=== PATIENT | male | born 1950 | race African-American/Black ===

== ENCOUNTER 2017-06-24 14:03 | Inpatient (IN) | payer MEDICARE, BC ==
[2017-06-24 16:22] LABS: ABS Basophils 0.1 10^3/ul (0-0.2); ABS Eosinophils 0.2 10^3/ul (0-0.6); ABS Lymphocytes 2.9 10^3/ul (1.0-4.8); ABS Monocytes 0.7 10^3/ul (0-0.8); ABS Neutrophils 3.4 10^3/ul (1.5-7.7); ABS Nucleated RBC 0 10^3/ul; Eosinophil % 2.2 % (0-6); Hematocrit 40 % (42-52); Hemoglobin 13.4 g/dl (14.0-18.0); Lymphocyte % 39.9 % (25-47); Mean Corpuscular HGB Conc 34 g/dl (31-36); Mean Corpuscular Hemoglobin 29 pg (27-31); Mean Corpuscular Volume 88 fL (80-94); Mean Platelet Volume 8 um3 (7.4-10.4); Nucleated Red Blood Cells % 0.1; Platelet Count 237 10^3/ul (150-450); Red Blood Count 4.55 10^6/ul (4.0-5.4); Red Cell Distribution Width 15 % (10.5-15); White Blood Count 7.2 10^3/ul (3.5-10.8)
--- NOTE | 2017-06-24 16:34 | RAD ---
INDICATION: Numbness of the left upper gravity. COMPARISON: There are no prior studies available for comparison. TECHNIQUE: Contiguous axial sections of the brain were obtained from the skull base to the vertex without contrast. FINDINGS: The ventricles, cisterns and sulci are within normal limits. There is a cavum vergae present consistent with normal variation. No significant focal abnormality or mass effect is seen. There is no evidence for hemorrhage. No significant focal osseous abnormality is seen. The visualized portion of the paranasal sinuses and mastoid air cells appear clear. IMPRESSION: NO EVIDENCE FOR GROSS ACUTE INFARCT, MASS EFFECT OR HEMORRHAGE.
[2017-06-24 16:49] LABS: INR 1.02 (0.77-1.02)
[2017-06-24 16:53] LABS: EGFR Non-African American 88.1 (>60)
[2017-06-24] MEDS: Aspirin Low Dose CHEW TAB* 81 MG PO ONE (17:52)
[2017-06-24 17:58] LABS: Urine Appearance Turbid; Urine Blood Negative (Negative); Urine Color Yellow; Urine Ketones Negative (Negative); Urine Protein Negative (Negative); Urine Specific Gravity 1.016 (1.010-1.030); Urine Urobilinogen Negative (Negative)
[2017-06-24] MEDS ORDERED: Iohexol 350* (CONTRAST) 500 ML MDV IV ONE (18:10)
--- NOTE | 2017-06-24 18:59 | RAD ---
INDICATION: Left upper extremity numbness. COMPARISON: Appear seated is made with a prior CT of the brain from every 2017 and a prior thyroid ultrasound from August 14, 2015. TECHNIQUE: A CT angiogram of the head and neck was performed following intravenous injection of 80 ml of Omnipaque 350 nonionic contrast. Contiguous axial sections were obtained from the thoracic inlet through the skull vertex. Images were reconstructed in the coronal and sagittal planes and in a 3-D volume rendered format. The distal cervical internal carotid artery diameter is used as the denominator for stenosis measurement. FINDINGS: RIGHT CAROTID: The common and internal carotid arteries appear patent without evidence for stenosis. LEFT CAROTID: The common and internal carotid arteries appear patent without evidence for stenosis. VERTEBRALS: The left vertebral artery is dominant. There is a very small caliber right vertebral artery throughout. CTA BRAIN: The internal carotid, anterior and middle cerebral arteries appear patent without evidence for high-grade stenosis or occlusion. The vertebral, basilar and posterior cerebral arteries appear patent without evidence for high-grade stenosis or occlusion. The right posterior cerebral artery arises from the posterior communicating artery consistent with normal variation. No gross focal perfusion abnormalities are seen. No aneurysm or vascular malformation is seen. NECK: The thyroid gland is enlarged with numerous nodules. Some of the nodules appear larger than on the most recent prior thyroid ultrasound study therefore recommend a follow-up thyroid ultrasound exam for further evaluation. The parotid and submandibular glands appear normal. No enlarged lymph nodes are noted. There is a cyst in the subcutaneous tissues in the posterior aspect of the upper neck on the right side measuring 2.0 x 1.4 cm in size. There is mild to moderate centrilobular emphysematous change seen in the lung apices. There are also dependent infiltrates suggestive of atelectasis. The paranasal sinuses and mastoid air cells appear clear IMPRESSION: 1. NO EVIDENCE FOR HEMODYNAMICALLY SIGNIFICANT CAROTID STENOSIS. 2. NO EVIDENCE FOR LARGE VESSEL INTRACRANIAL THROMBUS. 3. MULTINODULAR GOITER. SOME OF THE NODULES APPEAR LARGER THAN ON THE PRIOR THYROID ULTRASOUND. RECOMMEND A FOLLOW-UP OUTPATIENT ULTRASOUND FOR FURTHER EVALUATION. CPT II Codes: 3100F
[2017-06-24] MEDS ORDERED: Acetaminophen TAB* 325 MG PO PRN (21:22)
[2017-06-24] MEDS ORDERED: CMCS: Melatonin (NF) 3 MG TAB PO PRN (21:22)
[2017-06-24] MEDS ORDERED: traMADol TAB* 50 MG PO PRN (21:22)
[2017-06-24] MEDS ORDERED: Albuterol 2.5 MG/3 ML NEB.SOL* (0.083%) INH PRN (21:22)
[2017-06-24] MEDS ORDERED: Ondansetron INJ* 2 MG/ML VIAL IV PRN (21:22)
[2017-06-24] MEDS ORDERED: NS 0.9% 1000 ML* 1,000 ML IV SCH (21:30)
[2017-06-24 21:45] LABS: ABS Basophils 0.1 10^3/ul (0-0.2); ABS Eosinophils 0.2 10^3/ul (0-0.6); ABS Lymphocytes 2.6 10^3/ul (1.0-4.8); ABS Monocytes 0.7 10^3/ul (0-0.8); ABS Neutrophils 2.8 10^3/ul (1.5-7.7); ABS Nucleated RBC 0 10^3/ul; Eosinophil % 3.3 % (0-6); Hematocrit 43 % (42-52); Hemoglobin 14.3 g/dl (14.0-18.0); Lymphocyte % 40.7 % (25-47); Mean Corpuscular HGB Conc 34 g/dl (31-36); Mean Corpuscular Hemoglobin 30 pg (27-31); Mean Corpuscular Volume 88 fL (80-94); Mean Platelet Volume 7 um3 (7.4-10.4); Nucleated Red Blood Cells % 0.1; Platelet Count 230 10^3/ul (150-450); Red Blood Count 4.84 10^6/ul (4.0-5.4); Red Cell Distribution Width 15 % (10.5-15); White Blood Count 6.4 10^3/ul (3.5-10.8)
[2017-06-24 21:57] LABS: EGFR Non-African American 83.6 (>60)
[2017-06-24 22:03] LABS: INR 1.02 (0.77-1.02)
--- NOTE | 2017-06-24 23:39 | HP ---
H&P (Free Text) History and Physical: PCP: Nathan Hudson MD Date/Time: 06/24/2017 2110 CC: L arm weakness HPI: Mr Barnett is a 67YO male HX HIV+ & urolithiasis who noticed his L arm feeling heavy prior to going to bed last night (06/23). He awoke this AM with the same feeling, some mild nausea, and a brief mild headache. He states he "just didn't feel right", but cannot further characterized this and decided to be evaluated. He denies HX of similar, numbness/tingling, L face or LLE weakness , change in speech/swallow/vision, chest pain, or palpitations. PMedHx HIV+ urolithiasis monitored for elevated glucose & cholesterol Ambulatory Orders [place]-3 Fatty Acids [Fish Oil] 300 mg PO DAILY 11/26/14 Vilazodone (NF) [Viibryd (NF)] 20 mg PO QAM 11/21/15 Ascorbic Acid TAB* [Vitamin C TAB*] 500 mg PO DAILY 06/24/17 Aspirin EC Low Dose* [Ecotrin EC Low Dose 81 MG*] 81 mg PO DAILY 06/24/17 Betamethasone Dip 0.05% ON(NF) [Betamethasone Dipr 0.05% OINT(NF)] 1 applic TOPICAL DAILY PRN 06/24/17 Cholecalciferol TAB* [Vitamin D TAB*] 1,000 unit PO DAILY 06/24/17 Efavirenz (NF) [Sustiva (NF)] 200 mg PO BEDTIME 06/24/17 Emtricitabine/Tenofov Alafenam [Descovy 200-25 mg] 1 tab PO DAILY 06/24/17 Multivitamins/Minerals TAB* [Theragran/minerals TAB*] 1 tab PO DAILY 06/24/17 Allergies No Known Allergies Allergy (Verified 06/24/17 21:27) PSurgHx lithotripsy SocHx: quit smoking ~6 months ago, rare alcohol, denies recreational drugs; lives with a male domestic partner; works at [employer]; DNR/trial of intubation FamHx: Mother: CVA in her 30s, passed of complications of diabetes in her 70s; Father: passed at 86 of prostate CA; Sister: DM ROS: as above, otherwise reviewed and all were negative vitals: Vital Signs Temp 36.6 C 06/24/17 22:56 Pulse 74 06/24/17 22:56 Resp 16 06/24/17 22:56 BP 146/86 06/24/17 22:56 Pulse Ox 100 06/24/17 22:56 Intake & Output 06/24/17 06/24/17 06/25/17 11:59 23:59 11:59 Weight 70.67 kg Constitutional: NAD, normally developed, well-nourished black male HEENM: atraumatic; sclera/conjunctiva: anicteric/clear; hearing: clinically intact; oropharynx: clear, mucosa moist Neck: soft tissue: non-tender; thyroid: normal Pulmonary: clear to auscultation bilaterally, good aeration, no accessory muscle use CV: RR/RR, normal S1S2, no carotid bruit, no jugular venous distention, 2+ B DP/ PT, no edema Abdominal: soft, non-distended, non-tender, no rebound/guarding/rigidity, normoactive bowel sounds, no hepatosplenomegaly or masses, no costovertebral angle tenderness Musculoskeletal: general: grossly intact, no tenderness w/ palpation Integumental: normal appearance and texture of exposed skin Neurological cranial nerves III/IV/: symmetric light reflex, EOMI/PERRLA V: intact facial sensation VII: intact facial symmetry VIII: hearing clinically intact IX/X: symmetric palatal motion, no dysarthria XII: midline tongue protrusion, normal voice articulation motor: R handed LUE: 4+/5 proximally, distally, & social media developer strength RUE: 4+/5 proximally, distally, & social media developer strength LLE: 4+/5 proximally & distally RLE: 4+/5 proximally & distally coordination finger/nose: intact, symmetric heal/morton: intact, symmetric dysdiadochokinesia: none sensory crude touch: intact globally pinprick: intact globally Psychiatric orientation: AA&O to PPS affect: calm mood: cooperative eye contact: good content: reliable responses: timely insight: fair to good Testing: Lab Results 06/24/17 06/24/17 06/24/17 Range/Units 16:11 16:11 16:11 WBC 7.2 (3.5-10.8) 10^3/ul RBC 4.55 (4.0-5.4) 10^6/ul Hgb 13.4 L (14.0-18.0) g/dl Hct 40 L (42-52) % MCV 88 (80-94) fL MCH 29 (27-31) pg MCHC 34 (31-36) g/dl RDW 15 (10.5-15) % Plt Count 237 (150-450) 10^3/ul MPV 8 (7.4-10.4) um3 Neut % (Auto) 46.7 (38-83) % Lymph % (Auto) 39.9 (25-47) % Haines % (Auto) 10.0 H (1-9) % Eos % (Auto) 2.2 (0-6) % Baso % (Auto) 1.2 (0-2) % Absolute Neuts (auto) 3.4 (1.5-7.7) 10^3/ul Absolute Lymphs (auto) 2.9 (1.0-4.8) 10^3/ul Absolute Monos (auto) 0.7 (0-0.8) 10^3/ul Absolute Eos (auto) 0.2 (0-0.6) 10^3/ul Absolute Basos (auto) 0.1 (0-0.2) 10^3/ul Absolute Nucleated RBC 0 10^3/ul Nucleated RBC % 0.1 INR (Anticoag Therapy) 1.02 (0.77-1.02) APTT (26.0-36.3) seconds Sodium 141 (133-145) mmol/L Potassium 4.1 (3.5-5.0) mmol/L Chloride 110 (101-111) mmol/L Carbon Dioxide 25 (22-32) mmol/L Anion Gap 6 (2-11) mmol/L BUN 15 (6-24) mg/dL Creatinine 0.87 (0.67-1.17) mg/dL Est GFR ( Amer) 113.3 (>60) Est GFR (Non-Af Amer) 88.1 (>60) BUN/Creatinine Ratio 17.2 (8-20) Glucose 109 H (70-100) mg/dL Calcium 9.7 (8.6-10.3) mg/dL Total Bilirubin 0.30 (0.2-1.0) mg/dL AST 20 (13-39) U/L ALT 21 (7-52) U/L Alkaline Phosphatase 72 (34-104) U/L Troponin I 0.00 (<0.04) ng/mL Total Protein 7.2 (6.4-8.9) g/dL Albumin 4.1 (3.2-5.2) g/dL Globulin 3.1 (2-4) g/dL Albumin/Globulin Ratio 1.3 (1-3) Urine Color Urine Appearance Urine pH (5-9) Ur Specific [place] (1.010-1.030) Urine Protein (Negative) Urine Ketones (Negative) Urine Blood (Negative) Urine Nitrate (Negative) Urine Bilirubin (Negative) Urine Urobilinogen (Negative) Ur Leukocyte Esterase (Negative) Urine WBC (Auto) (Absent) Urine RBC (Auto) (Absent) Ur Squamous Epith Cells (Absent) Urine Bacteria (Absent) Urine Glucose (Negative) Urine Ascorbic Acid (Negative) 06/24/17 06/24/17 06/24/17 Range/Units 17:45 21:35 21:35 WBC (3.5-10.8) 10^3/ul RBC (4.0-5.4) 10^6/ul Hgb (14.0-18.0) g/dl Hct (42-52) % MCV (80-94) fL MCH (27-31) pg MCHC (31-36) g/dl RDW (10.5-15) % Plt Count (150-450) 10^3/ul MPV (7.4-10.4) um3 Neut % (Auto) (38-83) % Lymph % (Auto) (25-47) % Haines % (Auto) (1-9) % Eos % (Auto) (0-6) % Baso % (Auto) (0-2) % Absolute Neuts (auto) (1.5-7.7) 10^3/ul Absolute Lymphs (auto) (1.0-4.8) 10^3/ul Absolute Monos (auto) (0-0.8) 10^3/ul Absolute Eos (auto) (0-0.6) 10^3/ul Absolute Basos (auto) (0-0.2) 10^3/ul Absolute Nucleated RBC 10^3/ul Nucleated RBC % INR (Anticoag Therapy) 1.02 (0.77-1.02) APTT 30.0 (26.0-36.3) seconds Sodium (133-145) mmol/L Potassium (3.5-5.0) mmol/L Chloride (101-111) mmol/L Carbon Dioxide (22-32) mmol/L Anion Gap (2-11) mmol/L BUN 14 (6-24) mg/dL Creatinine 0.91 (0.67-1.17) mg/dL Est GFR ( Amer) 107.5 (>60) Est GFR (Non-Af Amer) 83.6 (>60) BUN/Creatinine Ratio (8-20) Glucose (70-100) mg/dL Calcium (8.6-10.3) mg/dL Total Bilirubin (0.2-1.0) mg/dL AST (13-39) U/L ALT (7-52) U/L Alkaline Phosphatase (34-104) U/L Troponin I (<0.04) ng/mL Total Protein (6.4-8.9) g/dL Albumin (3.2-5.2) g/dL Globulin (2-4) g/dL Albumin/Globulin Ratio (1-3) Urine Color Yellow Urine Appearance Turbid Urine pH 7.0 (5-9) Ur Specific [place] 1.016 (1.010-1.030) Urine Protein Negative (Negative) Urine Ketones Negative (Negative) Urine Blood Negative (Negative) Urine Nitrate Negative (Negative) Urine Bilirubin Negative (Negative) Urine Urobilinogen Negative (Negative) Ur Leukocyte Esterase Trace H (Negative) Urine WBC (Auto) 2+(11-20/hpf) H (Absent) Urine RBC (Auto) 3+(>10/hpf) H (Absent) Ur Squamous Epith Cells Present H (Absent) Urine Bacteria Absent (Absent) Urine Glucose Negative (Negative) Urine Ascorbic Acid * H (Negative) 06/24/17 Range/Units 21:35 WBC 6.4 (3.5-10.8) 10^3/ul RBC 4.84 (4.0-5.4) 10^6/ul Hgb 14.3 (14.0-18.0) g/dl Hct 43 (42-52) % MCV 88 (80-94) fL MCH 30 (27-31) pg MCHC 34 (31-36) g/dl RDW 15 (10.5-15) % Plt Count 230 (150-450) 10^3/ul MPV 7 L (7.4-10.4) um3 Neut % (Auto) 44.5 (38-83) % Lymph % (Auto) 40.7 (25-47) % Haines % (Auto) 10.4 H (1-9) % Eos % (Auto) 3.3 (0-6) % Baso % (Auto) 1.1 (0-2) % Absolute Neuts (auto) 2.8 (1.5-7.7) 10^3/ul Absolute Lymphs (auto) 2.6 (1.0-4.8) 10^3/ul Absolute Monos (auto) 0.7 (0-0.8) 10^3/ul Absolute Eos (auto) 0.2 (0-0.6) 10^3/ul Absolute Basos (auto) 0.1 (0-0.2) 10^3/ul Absolute Nucleated RBC 0 10^3/ul Nucleated RBC % 0.1 INR (Anticoag Therapy) (0.77-1.02) APTT (26.0-36.3) seconds Sodium (133-145) mmol/L Potassium (3.5-5.0) mmol/L Chloride (101-111) mmol/L Carbon Dioxide (22-32) mmol/L Anion Gap (2-11) mmol/L BUN (6-24) mg/dL Creatinine (0.67-1.17) mg/dL Est GFR ( Amer) (>60) Est GFR (Non-Af Amer) (>60) BUN/Creatinine Ratio (8-20) Glucose (70-100) mg/dL Calcium (8.6-10.3) mg/dL Total Bilirubin (0.2-1.0) mg/dL AST (13-39) U/L ALT (7-52) U/L Alkaline Phosphatase (34-104) U/L Troponin I (<0.04) ng/mL Total Protein (6.4-8.9) g/dL Albumin (3.2-5.2) g/dL Globulin (2-4) g/dL Albumin/Globulin Ratio (1-3) Urine Color Urine Appearance Urine pH (5-9) Ur Specific [place] (1.010-1.030) Urine Protein (Negative) Urine Ketones (Negative) Urine Blood (Negative) Urine Nitrate (Negative) Urine Bilirubin (Negative) Urine Urobilinogen (Negative) Ur Leukocyte Esterase (Negative) Urine WBC (Auto) (Absent) Urine RBC (Auto) (Absent) Ur Squamous Epith Cells (Absent) Urine Bacteria (Absent) Urine Glucose (Negative) Urine Ascorbic Acid (Negative) ECG, personally reviewed: NSR rate 70, no ischemia CT brain WO, personally reviewed: IMPRESSION: NO EVIDENCE FOR GROSS ACUTE INFARCT, MASS EFFECT OR HEMORRHAGE. CTA brain WO, personally reviewed: IMPRESSION: 1. NO EVIDENCE FOR HEMODYNAMICALLY SIGNIFICANT CAROTID STENOSIS. 2. NO EVIDENCE FOR LARGE VESSEL INTRACRANIAL THROMBUS. 3. MULTINODULAR GOITER. SOME OF THE NODULES APPEAR LARGER THAN ON THE PRIOR THYROID ULTRASOUND. RECOMMEND A FOLLOW-UP OUT- PATIENT ULTRASOUND FOR FURTHER EVALUATION. Impression: 67M presenting with symptoms of TIA/CVA DIAGNOSIS & PLAN Primary TIA/CVA : telemetry : aspirin : ECHO ordered : MRI brain WO ordered : Baljinder Reynolds MD neurology consulted by ED, will evaluate in AM : supplemental oxygen : supportive care Secondary HIV+ : continue outpatient regimen urolithiasis : no acute issues elevated glucose & cholesterol : continue outpatient monitoring via PCP Admission Rational: observation for TIA/CVA work up DVTp: heparin SQ Code Status: DNR/trial of intubation HCP: male domestic partnerSly
[2017-06-25] MEDS: Heparin VIAL(*) 5000 UNITS/ML VIAL (FIVE THOUSAND) SUBCUT SCH ×3 (05:09→20:46)
[2017-06-25] MEDS ORDERED: Omeprazole CAP* 20 MG PO SCH (06:00)
[2017-06-25] MEDS: Docusate CAP* 100 MG PO SCH ×2 (07:12→20:46)
[2017-06-25] MEDS ORDERED: EMTRICITABINE TENOFOVIR ALAFEN PO SCH (09:00)
[2017-06-25] MEDS ORDERED: Aspirin EC Low Dose* 81 MG TAB.EC PO SCH ×2 (09:00)
[2017-06-25] MEDS: VILAZODONE 20 MG PO SCH (10:40)
[2017-06-25] MEDS: EMTRICITABINE TENOFOVIR ALAFEN PO SCH (10:41)
[2017-06-25] MEDS: Clopidogrel TAB* 75 MG PO SCH (12:32)
--- NOTE | 2017-06-25 12:41 | ED ---
Diego Negrete Nilda, scribed for Landry Jama MD on 06/24/17 at 1858 . Neurological HPI - HPI Summary HPI Summary: This patient is a 67 year old M presenting to [facility] accompanied by friend with a chief complaint of constant left arm numbness that radiates to neck since this morning at 0100. Pain rated 1/10 in severity. Symptoms aggravated and alleviated by nothing. Patient reports nausea. Patient denies CAUSEY, blurred vision , double vision, vomiting, CP, SOB, palpitations, diarrhea, and constipation. PMHx HIV +. - History of Current Complaint Chief Complaint: EDWeakness Stated Complaint: NUMBNESS ON LT SIDE Time Seen by Provider: 06/24/17 15:53 Hx Obtained From: Patient Onset/Duration: Sudden Onset, Started hours ago, Still Present Timing: Constant Pain Intensity: 1 Pain Scale Used: 0-10 Numeric Character: Numbness/Tingling - left arm radiating to neck, Other: Aggravating: Nothing Alleviating: Nothing Associated Signs and Symptoms: Positive: Nausea/Vomiting - positive nausea, negative vomiting. Negative: Visual Changes, Headache, Chest Pain, Palpitations - Allergy/Home Medications Allergies/Adverse Reactions: Allergies Allergy/AdvReac Type Severity Reaction Status Date / Time No Known Allergies Allergy Verified 06/24/17 21:27 Home Medications: Home Medications Ascorbic Acid TAB* [Vitamin C TAB*] 500 mg PO DAILY 06/24/17 [History Confirmed 06/24/17] Aspirin EC Low Dose* [Ecotrin EC Low Dose 81 MG*] 81 mg PO DAILY 06/24/17 [ History Confirmed 06/24/17] Betamethasone Dip 0.05% ON(NF) [Betamethasone Dipr 0.05% OINT(NF)] 1 applic TOPICAL DAILY PRN 06/24/17 [History Confirmed 06/24/17] Cholecalciferol TAB* [Vitamin D TAB*] 1,000 unit PO DAILY 06/24/17 [History Confirmed 06/24/17] Efavirenz (NF) [Sustiva (NF)] 600 mg PO BEDTIME 06/24/17 [History Confirmed 08/07] Emtricitabine/Tenofov Alafenam [Descovy 200-25 mg] 1 tab PO DAILY 06/24/17 [ History Confirmed 06/24/17] Multivitamins/Minerals TAB* [Theragran/minerals TAB*] 1 tab PO DAILY 06/24/17 [ History Confirmed 06/24/17] PMH/Surg Hx/FS Hx/Imm Hx Endocrine/Hematology History: Reports: Hx Anemia - HX OF IN THE PAST Respiratory History: Reports: Hx Asthma - A CHILD History: Reports: Hx Kidney Stones - CHRONIC Musculoskeletal History: Reports: Hx Bursitis - BILATERAL SHOULDER- NO PROBLEMS RECENTLY Sensory History: Reports: Hx Contacts or Glasses - READERS Denies: Hx Hearing Aid Opthamlomology History: Reports: Hx Contacts or Glasses - READERS Psychiatric History: Reports: Hx Anxiety - ON MEDICATION FOR, Hx Depression - ON MEDICATION FOR - Surgical History Surgery Procedure, Year, and Place: 10/2015- STENT PLACEMENT. MULTIPLE PROCEDURES FOR KIDNEY SURGERIES. PILONIDAL CYST REMOVED MANY YEARS AGO Hx Anesthesia Reactions: No Infectious Disease History: Yes Infectious Disease History: Reports: Hx Human Immunodeficiency Virus (HIV) Denies: Traveled Outside the [place] in Last 30 Days - Family History Known Family History: Negative: Hypertension, Diabetes - Social History Alcohol Use: Rare Substance Use Type: Reports: None Smoking Status (MU): Light Every Day Tobacco Smoker Type: Cigarettes Amount Used/How Often: 1 PPD X 51 YEARS Have You Smoked in the Last Year: Yes Review of Systems Negative: Blurred Vision, Diplopia Negative: Palpitations, Chest Pain Negative: Shortness Of Breath Positive: Nausea, Other - negative constipation. Negative: Vomiting, Diarrhea Positive: Numbness - left arm numbness that radiates to neck. Negative: Headache All Other Systems Reviewed And Are Negative: Yes Physical Exam - Summary Physical Exam Summary: VITAL SIGNS: Reviewed. GENERAL: Patient is a well-developed and nourished male who is lying comfortable in the stretcher. Patient is not in any acute respiratory distress. HEAD AND FACE: No signs of trauma. No ecchymosis, hematomas or skull depressions. No sinus tenderness. EYES: PERRLA, EOMI x 2, No injected conjunctiva, no nystagmus. EARS: Hearing grossly intact. Ear canals and tympanic membranes are within normal limits. MOUTH: Oropharynx within normal limits. NECK: Supple, trachea is midline, no adenopathy, no JVD, no carotid bruit, no c- spine tenderness, neck with full ROM. CHEST: Symmetric, no tenderness at palpation LUNGS: Clear to auscultation bilaterally. No wheezing or crackles. CVS: Regular rate and rhythm, S1 and S2 present, no murmurs or gallops appreciated. ABDOMEN: Soft, non-tender. No signs of distention. No rebound no guarding, and no masses palpated. Bowel sounds are normal. EXTREMITIES: FROM in all major joints, no edema, no cyanosis or clubbing. NEURO: Alert and oriented x 3. No acute neurological deficits. Speech is normal and follows commands. NIH: 0 SKIN: Dry and warm Triage Information Reviewed: Yes Vital Signs On Initial Exam: Initial Vitals Temp Pulse Resp BP Pulse Ox 98.5 F 93 18 148/93 99 06/24/17 14:07 06/24/17 14:07 06/24/17 14:07 06/24/17 14:07 06/24/17 14:07 Vital Signs Reviewed: Yes Diagnostics - Vital Signs Vital Signs Temp Pulse Resp BP Pulse Ox 06/24/17 18:00 75 13 127/76 98 06/24/17 17:45 80 13 135/74 98 06/24/17 17:00 80 15 132/86 96 06/24/17 16:35 141/82 06/24/17 16:12 18 06/24/17 16:00 78 13 127/74 97 06/24/17 15:59 98 06/24/17 15:30 88 17 143/89 98 06/24/17 15:00 83 12 127/77 97 06/24/17 14:39 86 99 06/24/17 14:37 142/77 06/24/17 14:07 98.5 F 93 18 148/93 99 - Laboratory Lab Results: Lab Results 06/24/17 06/24/17 06/24/17 Range/Units 16:11 16:11 16:11 WBC 7.2 (3.5-10.8) 10^3/ul RBC 4.55 (4.0-5.4) 10^6/ul Hgb 13.4 L (14.0-18.0) g/dl Hct 40 L (42-52) % MCV 88 (80-94) fL MCH 29 (27-31) pg MCHC 34 (31-36) g/dl RDW 15 (10.5-15) % Plt Count 237 (150-450) 10^3/ul MPV 8 (7.4-10.4) um3 Neut % (Auto) 46.7 (38-83) % Lymph % (Auto) 39.9 (25-47) % [place] % (Auto) 10.0 H (1-9) % Eos % (Auto) 2.2 (0-6) % Baso % (Auto) 1.2 (0-2) % Absolute Neuts (auto) 3.4 (1.5-7.7) 10^3/ul Absolute Lymphs (auto) 2.9 (1.0-4.8) 10^3/ul Absolute Monos (auto) 0.7 (0-0.8) 10^3/ul Absolute Eos (auto) 0.2 (0-0.6) 10^3/ul Absolute Basos (auto) 0.1 (0-0.2) 10^3/ul Absolute Nucleated RBC 0 10^3/ul Nucleated RBC % 0.1 INR (Anticoag Therapy) 1.02 (0.77-1.02) Sodium 141 (133-145) mmol/L Potassium 4.1 (3.5-5.0) mmol/L Chloride 110 (101-111) mmol/L Carbon Dioxide 25 (22-32) mmol/L Anion Gap 6 (2-11) mmol/L BUN 15 (6-24) mg/dL Creatinine 0.87 (0.67-1.17) mg/dL Est GFR ( Amer) 113.3 (>60) Est GFR (Non-Af Amer) 88.1 (>60) BUN/Creatinine Ratio 17.2 (8-20) Glucose 109 H (70-100) mg/dL Calcium 9.7 (8.6-10.3) mg/dL Total Bilirubin 0.30 (0.2-1.0) mg/dL AST 20 (13-39) U/L ALT 21 (7-52) U/L Alkaline Phosphatase 72 (34-104) U/L Troponin I 0.00 (<0.04) ng/mL Total Protein 7.2 (6.4-8.9) g/dL Albumin 4.1 (3.2-5.2) g/dL Globulin 3.1 (2-4) g/dL Albumin/Globulin Ratio 1.3 (1-3) Urine Color Urine Appearance Urine pH (5-9) Ur Specific Merrill (1.010-1.030) Urine Protein (Negative) Urine Ketones (Negative) Urine Blood (Negative) Urine Nitrate (Negative) Urine Bilirubin (Negative) Urine Urobilinogen (Negative) Ur Leukocyte Esterase (Negative) Urine WBC (Auto) (Absent) Urine RBC (Auto) (Absent) Ur Squamous Epith Cells (Absent) Urine Bacteria (Absent) Urine Glucose (Negative) Urine Ascorbic Acid (Negative) 06/24/17 Range/Units 17:45 WBC (3.5-10.8) 10^3/ul RBC (4.0-5.4) 10^6/ul Hgb (14.0-18.0) g/dl Hct (42-52) % MCV (80-94) fL MCH (27-31) pg MCHC (31-36) g/dl RDW (10.5-15) % Plt Count (150-450) 10^3/ul MPV (7.4-10.4) um3 Neut % (Auto) (38-83) % Lymph % (Auto) (25-47) % [place] % (Auto) (1-9) % Eos % (Auto) (0-6) % Baso % (Auto) (0-2) % Absolute Neuts (auto) (1.5-7.7) 10^3/ul Absolute Lymphs (auto) (1.0-4.8) 10^3/ul Absolute Monos (auto) (0-0.8) 10^3/ul Absolute Eos (auto) (0-0.6) 10^3/ul Absolute Basos (auto) (0-0.2) 10^3/ul Absolute Nucleated RBC 10^3/ul Nucleated RBC % INR (Anticoag Therapy) (0.77-1.02) Sodium (133-145) mmol/L Potassium (3.5-5.0) mmol/L Chloride (101-111) mmol/L Carbon Dioxide (22-32) mmol/L Anion Gap (2-11) mmol/L BUN (6-24) mg/dL Creatinine (0.67-1.17) mg/dL Est GFR ( Amer) (>60) Est GFR (Non-Af Amer) (>60) BUN/Creatinine Ratio (8-20) Glucose (70-100) mg/dL Calcium (8.6-10.3) mg/dL Total Bilirubin (0.2-1.0) mg/dL AST (13-39) U/L ALT (7-52) U/L Alkaline Phosphatase (34-104) U/L Troponin I (<0.04) ng/mL Total Protein (6.4-8.9) g/dL Albumin (3.2-5.2) g/dL Globulin (2-4) g/dL Albumin/Globulin Ratio (1-3) Urine Color Yellow Urine Appearance Turbid Urine pH 7.0 (5-9) Ur Specific Merrill 1.016 (1.010-1.030) Urine Protein Negative (Negative) Urine Ketones Negative (Negative) Urine Blood Negative (Negative) Urine Nitrate Negative (Negative) Urine Bilirubin Negative (Negative) Urine Urobilinogen Negative (Negative) Ur Leukocyte Esterase Trace H (Negative) Urine WBC (Auto) 2+(11-20/hpf) H (Absent) Urine RBC (Auto) 3+(>10/hpf) H (Absent) Ur Squamous Epith Cells Present H (Absent) Urine Bacteria Absent (Absent) Urine Glucose Negative (Negative) Urine Ascorbic Acid * H (Negative) Result Diagrams: 06/24/17 21:35 06/24/17 21:35 Lab Statement: Any lab studies that have been ordered have been reviewed, and results considered in the medical decision making process. - CT brain CT Interpretation Completed By: Radiologist - Brain CT, per radiologist, reveals no evidence for gross acute infarct, mass effect or hemorrhage. Dr. Jama reviewed this report. CTA head CT Interpretation Completed By: Radiologist - CTA head, per radiologist, 1. NO EVIDENCE FOR HEMODYNAMICALLY SIGNIFICANT CAROTID STENOSIS. 2. NO EVIDENCE FOR LARGE VESSEL INTRACRANIAL THROMBUS. 3. MULTINODULAR GOITER. SOME OF THE NODULES APPEAR LARGER THAN ON THE PRIOR THYROID ULTRASOUND. RECOMMEND A FOLLOW-UP OUTPATIENT ULTRASOUND FOR FURTHER EVALUATION. Dr. Jama reviewed this report. - EKG 1621 Cardiac Rate: NL EKG Rhythm: Sinus Rhythm - 70 bpm EKG Interpretation: no ST elevation EKG Comparison: No Significant Change - similar to 11/09/09 NIH Scale - NIH Scale Level of Consciousness: Alert/Keenly Responsive Ask Patient the Month and His/Her Age: Both Correct Ask Pt to Open/Close Eyes and Bed Bug Exterminator/Release Non-Paretic Hand: Both Correctly Best Gaze (Only Horizontal Eye Movement): Normal Visual Field Testing: No Visual Loss Facial Paresis-Pt to Smile & Close Eyes or Grimace Symmetry: Normal/Symmetrical Motor Function - Right Arm: No Drift-Holds 10 Seconds Motor Function - Left Arm: No Drift-Holds 10 Seconds Motor Function - Right Leg: No Drift-Holds 10 Seconds Motor Function - Left Leg: No Drift-Holds 10 Seconds Limb Ataxia-Must be out of Proportion to Weakness Present: Absent Sensory (Use Pinprick to Test Arms/Legs/Trunk/Face): Normal Best Language (Describe Picture, Name Items): No Aphasia Dysarthria (Read Several Words): Normal Extinction and Inattention: No Abnormality Total Score: 0 Course/Dx - Course Assessment/Plan: This patient is a 67 year old M presenting to [facility] accompanied by friend with a chief complaint of left arm numbness without tingling that radiates to neck since this morning at 0100. Symptoms aggravated and alleviated by nothing. Patient reports nausea. Patient denies CAUSEY, blurred vision, double vision, vomiting, CP, SOB, palpitations, diarrhea, and constipation. PMHx HIV +. [1739] Dr. Reynolds (Neurologist) reccommends to do CTA head and if negative, admit to hospital for TIA workup. An EKG reveals NSR , 70 bpm, no ST elevation, similar to 11/09/09. CTA head, per radiologist, 1. NO EVIDENCE FOR HEMODYNAMICALLY SIGNIFICANT CAROTID STENOSIS. 2. NO EVIDENCE FOR LARGE VESSEL INTRACRANIAL THROMBUS. 3. MULTINODULAR GOITER. SOME OF THE NODULES APPEAR LARGER THAN ON THE PRIOR THYROID ULTRASOUND. RECOMMEND A FOLLOW- UP OUTPATIENT ULTRASOUND FOR FURTHER EVALUATION. Dr. Jama reviewed this report. In the ED course an IV access was obtained. Patient was placed in a clinical research monitor. Patient was started with IV fluids. Labs without any significant abnormality except for UA is contaminated. Troponin #1: 0.00. EKG shows a NSR at w/o ST elevations. CXR impression: No acute pathology. Head CT: No acute intracranial pathology. I discussed the case with Dr. Reynolds and she recommends a CTA. Head and Neck CTA: Negative for large vessel thrombosis and no carotid stenosis. Full reports as above. Dr. Reynolds recommends admission to hospitalist for TIA vs CVA workup. I discuss my physical exam, findings and test results with Dr. Bautista from the hospitalist services and she agrees to admit patient to his services. Patient is hemodynamically stable alert and oriented x 3. - Differential Dx Differential Diagnoses Neuro: Positive: Benign Paroxysmal Positional Vertigo, Cerebrovascular Accident, Seizure Disorder, Transient Ischemic Attack - Diagnoses Provider Diagnoses: TIA vs CVA - Physician Notifications Discussed Care Of Patient With: Zeinab Reynolds - Neuro Time Discussed With Above Provider: 17:39 Instructed by Provider To: Other - requests to do CTA and if neg admit to hospital for TIA workup Discharge - Discharge Plan Condition: Stable Disposition: ADMITTED TO [facility] The documentation as recorded by the Diego noguera Nilda accurately reflects the service I personally performed and the decisions made by me, Landry Jama MD.
--- NOTE | 2017-06-25 13:48 | PN ---
Subjective Date of Service: 06/25/17 Interval History: Mr. Barnett reports that he feels well today. He has had no further heaviness in his left arm and feels totally back to baseline. He denies chest pain, SOB, nausea, or abdominal pain. Objective Active Medications: Acetaminophen (Tylenol Tab*) 650 mg PO Q6H PRN Albuterol (Ventolin 2.5 Mg/3 Ml Neb.Adina*) 2.5 mg INH Q2H PRN Atorvastatin Calcium (Lipitor*) 20 mg PO 1700 [facility] Clopidogrel Bisulfate (Plavix Tab*) 75 mg PO DAILY [facility] Docusate Sodium (Colace Cap*) 200 mg PO BID [facility] Emtricitabine/Tenofovir (Descovy (Nf)) 1 tab PO DAILY [facility] Heparin Sodium (Porcine) (Heparin Vial(*)) 5,000 units SUBCUT Q8HR [facility] Sodium Chloride (Ns 0.9% 1000 Ml*) 1,000 mls @ 50 mls/hr IV PER RATE [facility] Melatonin (Melatonin (Nf)) 3 mg PO BEDTIME PRN; Protocol Pto:Efavirenz (Nf) (600 Mg Tabs) 1 dose PO BEDTIME [facility] Ondansetron HCl (Zofran Inj*) 4 mg IV Q6H PRN Vilazodone HCl (Viibryd (Nf)) 20 mg PO QAM [facility] Vital Signs: Temp Pulse Resp BP Pulse Ox 98.1 F 80 20 130/78 97 06/25/17 12:25 06/25/17 12:25 06/25/17 12:25 06/25/17 12:25 06/25/17 12:25 Oxygen Devices in Use Now: None Appearance: Male lying in bed in NAD Eyes: No Scleral Icterus Ears/Nose/Mouth/Throat: Mucous Membranes Moist Neck: Trachea Midline Respiratory: Symmetrical Chest Expansion and Respiratory Effort, Clear to Auscultation Cardiovascular: NL Sounds; No Murmurs; No JVD, No Edema Abdominal: NL Sounds; No Tenderness; No Distention Extremities: No Edema Skin: No Rash or Ulcers Neurological: Alert and Oriented x 3, NL Muscle Strength and Tone Nutrition: Taking PO's Result Diagrams: 06/24/17 21:35 06/24/17 21:35 Additional Lab and Data: . Assess/Plan/Problems-Billing Assessment: Mr. Barnett is a 67 yo M with a PMH of HIV who was admitted on 06/24/17 with left arm heaviness and concern for TIA. - Patient Problems (1) TIA (transient ischemic attack) Comment: - Appreciate consultation from Dr. Warren. - CT brain and CTA head and neck without significant abnormality. MRI and echo pending. - Continue telemetry monitoring to eval for afib. - Continue atorvastatin. HgbA1c 6.2, patient not diabetic. - Aspirin stopped, continue plavix. Will need to monitor for hematuria. (2) HIV (human immunodeficiency virus infection) Comment: - Continue Effavirenz and Descovy. (3) Hyperlipidemia Comment: - Continue atorvastatin. Total cholesterol > 200. (4) Depression Comment: - Continue viibryd. (5) DVT prophylaxis Comment: - Heparin SQ. (6) DNR (do not resuscitate) Comment: Status and Disposition: Convert to inpatient with need for > 2 days in hospital for telemetry monitoring , echo and MRI. Anticipate discharge to home when medically stable.
--- NOTE | 2017-06-25 14:44 | CONS ---
CC: Dr. Hudson NEUROLOGY CONSULTATION: DATE OF CONSULT: 06/25/17 REFERRING PROVIDER: Dr. Davidson. LOCATION: He is an inpatient in room 449. HISTORY OF PRESENT ILLNESS: Pankaj Barnett is a 67-year-old right-handed man, who the night before last started to feel not very well in that his left arm was somewhat heavy. It was not weak to the point he could not use it and there were no symptoms on his face or legs. He slept and when he got up, he still did not feel quite right. He had something to eat. His left arm continued to feel somewhat heavy and he just had a sense of general unwellness. He had no difficulty using the arm, there was no numbness or pain, no numbness of the face or change in vision, no sense of weakness or numbness of the legs or difficulty walking. He was getting ready for work which he typically starts at about 4 in the afternoon, decided finally to come into hospital because of these symptoms and general unwellness. He was evaluated in the emergency room by Dr. Davidson and at that time, he had a normal neurological exam. He was admitted for possible stroke or transient ischemic attack. There is no prior history of TIA or stroke. There is no history of transient numbness or weakness of the limbs or face. He has a history of borderline diabetes and in fact, his hemoglobin A1c is elevated as of 05/25/17 at 6.6%. He has a history of recently elevated cholesterol, apparently, from Dr. Hudson 's office and his lipids this morning are indeed elevated with cholesterol 236 and LDL 139. There is no history of heart disease, but he was evaluated 3 years ago for episodes of feeling faint. He describes having Holter monitor, echocardiogram, and a stress test, and was told that all were normal. He is an ex-smoker, having just quit smoking in February. He rarely drinks alcohol. PAST MEDICAL HISTORY: Notable for HIV positivity, on antiretroviral drugs. He follows with Dr. Kaur. He has a history of kidney stones for which he is seeing Dr. Lorenzo. Again, he has a recent history of diabetes, which is yet untreated. FAMILY HISTORY: Notable for mother having diabetes and history of stroke, one sister has diabetes as well. SOCIAL HISTORY: Again, he quit smoking in February, rarely drinks alcohol. He works, lives with his partner. REVIEW OF SYSTEMS: Notable for mild headache last evening, which went away. Generally, headache is not a problem. He had some nausea yesterday. He has not had any recent infections or fevers. He has had lithotripsy before. He noted some blood in his urine this morning. He is being treated for depression. No history of epilepsy. Rest of the 14-point review of systems is negative other than in the history of present illness and past medical history. PHYSICAL EXAM: He is thin, but well hydrated. He has been afebrile throughout his hospital stay. Most recent temperature 97.6 orally. Blood pressure was little bit high when he first came in running around 140/70, but more recently is 130/80. Heart rate is about 70 and seems regular. Respiratory rate is 16 and oxygen saturation is 97% on room air. Lungs are clear bilaterally. Heart is in a regular rate and rhythm without murmurs. Carotid pulses are present. There are no cervical bruits. Oral mucosa is moist. Neurologic Exam: Pupils reacts equally from 3.5 to 2 mm. Eye movements and visual huizar are all normal. There is no ptosis. Funduscopic exam is normal bilaterally. Facial musculature is intact and symmetric. Facial sensation to light touch is symmetric and to temperature as well. Palate and tongue appeared normal, tongue protrudes in the midline and palate rises symmetrically. There is no dysarthria. Hearing is intact. Neck strength is intact. Motor exam reveals normal muscle tone, strength, and bulk proximally and distally in upper and lower extremities. There is no pronator drift. Sensory exam is intact to vibration, pin, light touch. Romberg sign is absent. Reflexes are hypoactive, trace at the ankles but present. Plantar responses are flexor bilaterally. Finger taps and [id number] maneuver are normal. Rapid alternating maneuvers are normal in the hands. [id number] maneuver is normal bilaterally. He is stable on his feet, although I did not walk him far because of his IV. He is alert and oriented and an excellent detailed historian. Memory is intact and language is fluent. He has normal attention, concentration, and adequate fund of knowledge. DIAGNOSTIC STUDIES/LAB DATA: Includes a CT of the brain, I reviewed the images and is interpreted as normal. CT angiogram of the neck and brain, I likewise reviewed the images and is also interpreted as normal. EKG reveals a sinus rhythm with possible left ventricular hypertrophy. Other laboratory studies notable for normal CBC, platelet count 230,000. INR on admission yesterday was 1.02. PTT 30. Urinalysis on 06/24/17 notable for 2 + white blood cells, 3+ red blood cells. Chemistry profile is notable for hemoglobin A1c on 05/25/17 of 6.6%, glucose yesterday on admission was 109 and otherwise chemistry profile is within normal limits. His cholesterol this morning is 236, LDL 139, HDL 52. IMPRESSION AND PLAN: Impression is that of a possible right hemispheric transient ischemic attack. He described some heaviness of his left arm, which has since resolved. Currently, his neurological exam is normal. He was on aspirin at the time of the event. I recommend he have an MRI scan of the brain and a transthoracic echocardiogram. He should have telemetry for at least 24 to 48 hours. Recommend switching aspirin to Plavix 75 mg once per day. Recommend starting a statin as well. I have stopped his omeprazole with the initiation of Plavix. His lipids will need to be followed up as an outpatient particularly on the antiretroviral drugs as there could be an interaction. I have explained to the patient my recommendations and he should stay in the hospital until his workup is complete, which he is discouraged about understandably. I will follow him along with you. [id number]/[facility] #: [id number] TY
[2017-06-25] MEDS ORDERED: Atorvastatin* 20 MG TAB PO SCH (17:00)
[2017-06-25] MEDS: EFAVIRENZ 600 MG PO SCH (20:34)
[2017-06-25] MEDS ORDERED: EFAVIRENZ PO SCH (21:00)
[2017-06-26] MEDS: Heparin VIAL(*) 5000 UNITS/ML VIAL (FIVE THOUSAND) SUBCUT SCH ×3 (05:01→20:48)
[2017-06-26] MEDS: Docusate CAP* 100 MG PO SCH ×2 (07:26→20:54)
--- NOTE | 2017-06-26 09:51 | PN ---
Subjective Date of Service: 06/26/17 Interval History: Mr. Barnett denies complaint today. He has had no further heaviness in his left arm. He is eager for discharge when testing is completed. Objective Active Medications: Acetaminophen (Tylenol Tab*) 650 mg PO Q6H PRN Albuterol (Ventolin 2.5 Mg/3 Ml Neb.Adina*) 2.5 mg INH Q2H PRN Atorvastatin Calcium (Lipitor*) 20 mg PO BEDTIME CRISTIAN Clopidogrel Bisulfate (Plavix Tab*) 75 mg PO DAILY CRISTIAN Docusate Sodium (Colace Cap*) 200 mg PO BID CRISTIAN Emtricitabine/Tenofovir (Descovy (Nf)) 1 tab PO DAILY CRISTIAN Heparin Sodium (Porcine) (Heparin Vial(*)) 5,000 units SUBCUT Q8HR CRI[facility]IAN Melatonin (Melatonin (Nf)) 3 mg PO BEDTIME PRN; Protocol Pto:Efavirenz (Nf) (600 Mg Tabs) 1 dose PO BEDTIME CRISTIAN Ondansetron HCl (Zofran Inj*) 4 mg IV Q6H PRN Vilazodone HCl (Viibryd (Nf)) 20 mg PO QAM C[facility] Vital Signs: Temp Pulse Resp BP Pulse Ox 98.2 F 86 16 128/97 98 06/26/17 07:46 06/26/17 07:46 06/26/17 07:47 06/26/17 07:46 06/26/17 07:55 Oxygen Devices in Use Now: None Appearance: Male lying in bed in NAD Eyes: No Scleral Icterus Ears/Nose/Mouth/Throat: Mucous Membranes Moist Neck: Trachea Midline Respiratory: Symmetrical Chest Expansion and Respiratory Effort, Clear to Auscultation Cardiovascular: NL Sounds; No Murmurs; No JVD, No Edema Abdominal: NL Sounds; No Tenderness; No Distention Lymphatic: No Cervical Adenopathy Extremities: No Edema Skin: No Rash or Ulcers Neurological: Alert and Oriented x 3, NL Muscle Strength and Tone Nutrition: Taking PO's Result Diagrams: 06/24/17 21:35 06/24/17 21:35 Additional Lab and Data: . Assess/Plan/Problems-Billing Assessment: Mr. Barnett is a 67 yo M with a PMH of HIV who was admitted on 06/24/17 with left arm heaviness and concern for TIA. - Patient Problems (1) TIA (transient ischemic attack) Comment: - Appreciate consultation from Dr. Warren. - CT brain and CTA head and neck without significant abnormality. MRI and echo pending. - Continue telemetry monitoring to eval for afib. - Continue atorvastatin. HgbA1c 6.2, patient not diabetic. - Aspirin stopped, continue plavix. Will need to monitor for hematuria. (2) HIV (human immunodeficiency virus infection) Comment: - Continue Effavirenz and Descovy. (3) Hyperlipidemia Comment: - Continue atorvastatin. Total cholesterol > 200. (4) Depression Comment: - Continue viibryd. (5) DVT prophylaxis Comment: - Heparin SQ. (6) DNR (do not resuscitate) Comment: Status and Disposition: Convert to inpatient with need for > 2 days in hospital for telemetry monitoring , echo and MRI. Anticipate discharge to home when medically stable.
[2017-06-26] MEDS: Clopidogrel TAB* 75 MG PO SCH (10:41)
[2017-06-26] MEDS: EMTRICITABINE TENOFOVIR ALAFEN PO SCH (10:42)
[2017-06-26] MEDS: VILAZODONE 20 MG PO SCH (10:42)
[2017-06-26] MEDS: EFAVIRENZ 600 MG PO SCH (20:54)
[2017-06-26] MEDS ORDERED: Atorvastatin* 20 MG TAB PO SCH (21:00)
--- NOTE | 2017-06-26 22:16 | PN ---
NEUROLOGY FOLLOWUP NOTE: DATE OF FOLLOWUP: 06/26/17 LOCATION: He is in room 431. HOSPITALIST: Evelyne Giron NP CHIEF COMPLAINT: Transient left arm heaviness. INTERVAL HISTORY: Since yesterday, Mr. Barnett has not had any recurrence of his left arm symptoms. He feels well without headache or any other symptoms. No numbness in the face or limbs. He has been up walking several times today and he feels steady on his feet without any weakness. MEDICATIONS: Reviewed and he remains on: 1. Atorvastatin 20 mg p.o. daily. 2. Plavix 75 mg p.o. daily. 3. Descovy 1 p.o. daily. 4. Colace 200 mg p.o. b.i.d. 5. Heparin subcutaneous 5000 units q.8 hours. 6. Melatonin 2 mg p.o. q.h.s. 7. Viibryd 20 mg p.o. q.a.m. 8. Efavirenz 1 p.o. daily. PHYSICAL EXAM: He is well hydrated. Temperature 98.2, blood pressure 128/97, heart rate in the 70s and regular. Heart is in a regular rate and rhythm without murmurs heard. There are no cervical bruits. Neurologically, pupils are equal and eye movements are normal. Visual huizar are full to confrontation. Facial musculature and sensation are intact and symmetric. Speech is clear without dysarthria. Motor exam reveals no drift of the upper extremities. Finger taps and [id number] maneuver are normal bilaterally. He is alert and oriented with intact memory and fluent language. LABORATORY DATA: There are no new laboratory studies to review today. An echocardiogram is pending. IMPRESSION: Possible right hemispheric transient ischemic attack, which has resolved. He has now been switched from aspirin to Plavix and a statin has been added. He has an echocardiogram today and an MRI tomorrow, and if those are normal, then I think he could be discharged on his current medications. He already has a followup with Dr. Hudson scheduled, I believe, within a week or so to address his elevated blood glucoses and lipid status. [id number]/[facility] #: [id number] [facility]
[2017-06-27 04:23] VITALS: BP 109/63
[2017-06-27] MEDS: Heparin VIAL(*) 5000 UNITS/ML VIAL (FIVE THOUSAND) SUBCUT SCH (05:14)
[2017-06-27 05:39] LABS: ABS Basophils 0 10^3/ul (0-0.2); ABS Eosinophils 0.2 10^3/ul (0-0.6); ABS Lymphocytes 2.7 10^3/ul (1.0-4.8); ABS Monocytes 0.7 10^3/ul (0-0.8); ABS Neutrophils 2.3 10^3/ul (1.5-7.7); ABS Nucleated RBC 0 10^3/ul; Eosinophil % 3.8 % (0-6); Hematocrit 41 % (42-52); Hemoglobin 13.5 g/dl (14.0-18.0); Lymphocyte % 45.6 % (25-47); Mean Corpuscular HGB Conc 33 g/dl (31-36); Mean Corpuscular Hemoglobin 29 pg (27-31); Mean Corpuscular Volume 88 fL (80-94); Mean Platelet Volume 8 um3 (7.4-10.4); Nucleated Red Blood Cells % 0.1; Platelet Count 229 10^3/ul (150-450); Red Blood Count 4.62 10^6/ul (4.0-5.4); Red Cell Distribution Width 14 % (10.5-15)
--- NOTE | 2017-06-27 08:03 | PN ---
Subjective Date of Service: 06/27/17 Interval History: Mr. Barnett continues to deny complaint and is eager for discharge to home. Objective Active Medications: Acetaminophen (Tylenol Tab*) 650 mg PO Q6H PRN Albuterol (Ventolin 2.5 Mg/3 Ml Neb.Adina*) 2.5 mg INH Q2H PRN Atorvastatin Calcium (Lipitor*) 20 mg PO BEDTIME CRISTIAN Clopidogrel Bisulfate (Plavix Tab*) 75 mg PO DAILY CRISTIAN Docusate Sodium (Colace Cap*) 200 mg PO BID CRISTIAN Emtricitabine/Tenofovir (Descovy (Nf)) 1 tab PO DAILY CRISTIAN Heparin Sodium (Porcine) (Heparin Vial(*)) 5,000 units SUBCUT Q8HR CRISTIAN Melatonin (Melatonin (Nf)) 3 mg PO BEDTIME PRN; Protocol Pto:Efavirenz (Nf) (600 Mg Tabs) 1 dose PO BEDTIME CRISTIAN Ondansetron HCl (Zofran Inj*) 4 mg IV Q6H PRN Vilazodone HCl (Viibryd (Nf)) 20 mg PO QAM [facility] Vital Signs - 8 hr 06/27/17 03:20 Temperature 98.1 F Pulse Rate 88 Respiratory 18 Rate Blood Pressure 109/63 (mmHg) O2 Sat by Pulse 96 Oximetry Oxygen Devices in Use Now: None Appearance: Male lying in bed in NAD Eyes: No Scleral Icterus Ears/Nose/Mouth/Throat: Mucous Membranes Moist Neck: NL Appearance and Movements; NL JVP Respiratory: Symmetrical Chest Expansion and Respiratory Effort, Clear to Auscultation Cardiovascular: NL Sounds; No Murmurs; No JVD, No Edema Abdominal: NL Sounds; No Tenderness; No Distention Lymphatic: No Cervical Adenopathy Extremities: No Edema Skin: No Rash or Ulcers Neurological: Alert and Oriented x 3, NL Muscle Strength and Tone Nutrition: Taking PO's Result Diagrams: 06/27/17 04:21 06/24/17 21:35 Additional Lab and Data: . Assess/Plan/Problems-Billing Assessment: Mr. Barnett is a 67 yo M with a PMH of HIV who was admitted on 06/24/17 with left arm heaviness and concern for TIA. - Patient Problems (1) TIA (transient ischemic attack) Comment: - Appreciate consultation from Dr. Warren. - CT brain and CTA head and neck without significant abnormality. MRI brain negative and echo without significant wall motion or valvular abnormalities. - No afib during hospitalization. - Continue atorvastatin. HgbA1c 6.2, patient not diabetic. - Aspirin stopped, continue plavix. (2) HIV (human immunodeficiency virus infection) Comment: - Continue Effavirenz and Descovy. (3) Hyperlipidemia Comment: - Continue atorvastatin. Total cholesterol > 200. (4) Depression Comment: - Continue viibryd. (5) DVT prophylaxis Comment: - Heparin SQ. (6) DNR (do not resuscitate) Comment: Status and Disposition: Discharge to home.
[2017-06-27] MEDS: Clopidogrel TAB* 75 MG PO SCH (09:33)
[2017-06-27] MEDS: EMTRICITABINE TENOFOVIR ALAFEN PO SCH (09:34)
[2017-06-27] MEDS: VILAZODONE 20 MG PO SCH (09:34)
[2017-06-27] MEDS: Docusate CAP* 100 MG PO SCH (09:34)
--- NOTE | 2017-06-27 10:13 | ECHO ---
Patient: LAYNE TORRES [facility] Rec#: [id number] : 1950 Date: 06/27/2017 Age: 67y Height: 180.34 cm / 71.0 in Weight: 71.67 kg / 158.0 lbs Sex: M BSA: 1.91 Room#: 431 Admit Date#: 06/25/2017 Type: Inpatient Referring: Evelyne Giron NP Reading: Erick Queen MD Revenue Manager: Zeinab Ibanez,CALCS,RDMS CC: Chapin Hudson MD Transthoracic Echocardiogram Indication: TIA BP: 109/63 HR: 90 Rhythm: NSR Findings History: Syncope, TIA, former smoker Technical Comments: The study quality is good. Left Ventricle: The left ventricular chamber size is normal. Mild to moderate concentric left ventricular hypertrophy is observed. Global left ventricular wall motion and contractility are within normal limits. There is normal left ventricular systolic function. The estimated ejection fraction is 55-60%. There is an E to A reversal in the mitral valve flow pattern suggestive of diastolic dysfunction. Left Atrium: The left atrial chamber size is normal. Right Ventricle: The right ventricular chamber size and systolic function are within normal limits. Right Atrium: The right atrial cavity size is normal. The bubble study is negative. A patent foramen ovale is not demonstrated with color Doppler and agitated contrast. Aortic Valve: Systolic excursion of the aortic valve is normal. There is no evidence of aortic regurgitation. There is no evidence of aortic stenosis. Mitral Valve: The mitral valve leaflets appear normal. There is a trace of mitral regurgitation. There is no evidence of mitral stenosis. Tricuspid Valve: The tricuspid valve leaflets are normal. There is no evidence of tricuspid valve regurgitation. Unable to estimate the right ventricular systolic pressure. Pulmonic Valve: The pulmonic valve structure is not well visualized. There is a trace pulmonic regurgitation. Pericardium: There is no significant pericardial effusion. Aorta: The aortic root appears normal. There is no dilatation of the aortic arch. Pulmonary Artery: The main pulmonary artery is not well visualized. Venous: The inferior vena cava appears normal in size. There is a greater than 50% respiratory change in the inferior vena cava dimension. Contrast: Intravenous agitated saline contrast was used to assess intracardiac shunting. Images 28 and 29 Summary: There are no significant changes when compared to the previous study done on 08/01/15 Conclusions Global left ventricular wall motion and contractility are within normal limits. The estimated ejection fraction is 55-60%. A patent foramen ovale is not demonstrated with color Doppler and agitated contrast. There is no evidence of aortic regurgitation. There is a trace of mitral regurgitation. There is no evidence of tricuspid valve regurgitation. There is no significant pericardial effusion. There are no significant changes when compared to the previous study done on 08/01/15 Measurements Name Value Normal Range RVIDd (AP) 2D 2.5 cm (0.9 - 2.6) RAd ISD 4CH 4.7 cm (3.4 - 4.9) RA (A4C)W 3.9 cm (2.9 - 4.6) IVSd (2D) 1.4 cm (0.6 - 1) LVPWd (2D) 1.6 cm (0.6 - 1) LVIDd (2D) 3.4 cm (3.6 - 5.4) LVIDs (2D) 1.6 cm - LV FS (2D) 52 % (25 - 45) Aortic Annulus 2.3 cm (1.4 - 2.6) Ao root diameter (2D) 3.2 cm (2.1 - 3.5) Ascending Ao 2.9 cm (2.1 - 3.4) Aortic arch 3 cm (1.8 - 3.4) LA dimension (AP) 2D 3 cm (2.3 - 3.8) LAd ISD 4CH 5.1 cm (2.9 - 5.3) LA ISD 4CH W 4.3 cm (2.5 - 4.5) Name Value Normal Range LA ESV SP 4CH (A/L) 53.23 ml - LA ESV SP 2CH (A/L) 49.74 ml - LA ESV BP (A/L) 53.06 ml - LA ESV BP (A/L) index 28 ml/m2 - LA ESV SP 4CH (MOD) 46.21 ml - LA ESV SP 2CH (MOD) 46.74 ml - LV EDV SP 4CH (MOD) 50.36 ml - LV ESV SP 4CH (MOD) 32.68 ml - EF SP 4CH (MOD) 35.11 % - LV EDV SP 2CH (MOD) 39.68 ml - LV ESV SP 2CH (MOD) 19.39 ml - EF SP 2CH (MOD) 51.13 % - LV EDV BP 47.92 ml - LV ESV BP 25.55 ml - BP EF (MOD) 47 % - Name Value Normal Range MV E-wave Vmax 0.5 m/sec - MV deceleration time 208 msec - MV A-wave Vmax 0.7 m/sec - MV E:A ratio 0.7 ratio - LV septal e' Vmax 0.07 m/sec - LV lateral e' Vmax 0.1 m/sec - LV E:e' septal ratio 7.1 ratio - LV E:e' lateral ratio 5 ratio - Name Value Normal Range AV Vmax 1 m/sec - AV VTI 17 cm - AV peak gradient 4 mmHg - AV mean gradient 2.1 mmHg - LVOT Vmax 0.8 m/sec - LVOT VTI 14.4 cm - LVOT peak gradient 2.6 mmHg - LVOT mean gradient 1.4 mmHg - MORAIMA Vmax 0.6 m/sec - Name Value Normal Range RAP 8 mmHg - IVC diameter 1.9 cm - Name Value Normal Range PV Vmax 0.6 m/sec - PV peak gradient 1.4 mmHg -
--- NOTE | 2017-06-27 13:07 | RAD ---
HISTORY: Left-sided weakness COMPARISONS: Head CT dated June 24, 2017 TECHNIQUE: The following sequences were obtained of the head: Sagittal T1-weighted images, axial T2-weighted images, axial FLAIR images, axial susceptibility weighted images, axial T1-weighted images. Additionally, axial diffusion-weighted images were obtained with calculated apparent diffusion coefficients. FINDINGS: HEMORRHAGE/INFARCT: There is no hemorrhage or acute infarct. MASSES/SHIFT: There is no mass or shift. EXTRA-AXIAL SPACES/MENINGES: There are no extra-axial fluid collections. SULCI AND VENTRICLES: The sulci and ventricles are normal in size and position for the patient's stated age. CEREBRUM: There are no focal parenchymal abnormalities. BRAINSTEM: There are no focal parenchymal abnormalities. CEREBELLUM: There are no focal parenchymal abnormalities. The cerebellar tonsils are normal in size and position. SELLA: The sella is normal. PINEAL: The pineal region is clear. CP ANGLE/TEMPORAL BONES: The labyrinthine structures are grossly normal. VESSELS: Normal flow-voids are noted within the visualized vertebral vasculature. DIFFUSION ABNORMALITIES: There are no diffusion abnormalities. PARANASAL SINUSES/MASTOIDS: The paranasal sinuses are clear. ORBITS: The orbits are unremarkable. BONES AND SOFT TISSUE: No bone or soft tissue abnormalities are noted. OTHER: None IMPRESSION: UNREMARKABLE MRI OF THE BRAIN. NO RESTRICTED DIFFUSION TO SUGGEST ACUTE INFARCT.
--- NOTE | 2017-06-27 21:46 | CONS ---
NEUROLOGY FOLLOWUP CONSULTATION: DATE OF FOLLOWUP: 06/27/17 LOCATION: He is in room 431. HOSPITALIST: Evelyne Giron NP. PRIMARY CARE PHYSICIAN: Dr. Chapin Hudson. CHIEF COMPLAINT: Transient left arm heaviness. INTERVAL HISTORY: Since yesterday Mr. Barnett continues to feel well. He has not had any recurrence of feeling ill or specifically left arm weakness or numbness. He has been walking around without difficulties. MEDICATIONS: Were reviewed and he remains on: 1. Plavix 75 mg p.o. q. day. 2. Atorvastatin 20 mg p.o. q. day. 3. Heparin subcutaneous q.8 hours. 4. Descovy 1 tab p.o. q. day. 5. Efavirenz 600 mg 1 p.o. q.h.s. 6. Colace 200 mg p.o. b.i.d. 7. Viibryd 20 mg p.o. q.a.m. PHYSICAL EXAM: Temperature 98.1, blood pressure 109/63, heart rate 88 and regular, respirations 18. Speech is clear and facial musculature is symmetric. Language is fluent. Memory is intact. DIAGNOSTIC STUDIES/LAB DATA: Since yesterday notable for repeat CBC which is unremarkable. He had an echocardiogram yesterday which is essentially normal transthoracic echocardiogram. There is no evidence of patent foramen ovale. There was trace mitral regurgitation and mild left ventricular hypertrophy. MRI of the brain was performed earlier today and the report is not yet generated. I reviewed the images and there is no evidence of an acute ischemic event. There was a tiny small nonspecific area in the left subcortical frontal area consistent with a chronic ischemic lesion but it is nonspecific. IMPRESSION AND PLAN: Impression is that of a possible right hemispheric transient ischemic attack. He is now on Plavix and a statin. If the radiologist agrees there is no evidence of acute cerebrovascular event on his imaging, I think he can be discharged to home and follow up with Dr. Hudson. He should continue Plavix and not resume aspirin and also continue atorvastatin. His hemoglobin A1c of 6.2% is improved from what a month ago, but that will be addressed by Dr. Hudson as well, I am sure. [id number]/[facility] #: [id number] [facility]
--- NOTE | 2017-06-28 11:50 | DS ---
CC: Dr. Hudson * [facility] MEDICINE DISCHARGE SUMMARY: DATE OF ADMISSION: 06/24/17 DATE OF DISCHARGE: 06/27/17 PRIMARY CARE PROVIDER: Dr. Hudson. ATTENDING PHYSICIAN: Dr. Jorge Alberto Montoya * (dictation provided by Evelyne Giron NP). PRIMARY DIAGNOSIS: Transient ischemic attack. SECONDARY DIAGNOSES: 1. Concern for diabetes, repeat hemoglobin A1c 6.2. 2. Human immunodeficiency virus. 3. Urolithiasis. MEDICATIONS: At the time of discharge are: 1. Efavirenz 600 mg p.o. at bedtime. 2. [place]-3 fatty acid 300 mg p.o. daily. 3. Betamethasone ointment as needed. 4. Multivitamin and mineral 1 tablet p.o. daily. 5. Ascorbic acid 500 mg p.o. daily. 6. Cholecalciferol 1000 units p.o. daily. 7. Vilazodone 20 mg p.o. q.a.m. 8. Descovy 200/25 mg tablets 1 tablet p.o. daily. 9. Clopidogrel 75 mg p.o. daily. 10. Atorvastatin 20 mg p.o. daily. HOSPITAL COURSE: Mr. Barnett is a 67-year-old male with a past medical history of HIV and concern for possible recent development of diabetes, who presented to the hospital on 06/24/17 with concern for left arm heaviness. Please see the dictated H and P from Dr. Eddi Davidson for complete details. In brief, the patient had noted that his felt arm heavy prior to falling asleep that night and when he woke up, he had the same feeling with mild nausea and brief headache and "just did not feel right." In the emergency room, he had a CT of the brain which showed "no evidence for gross acute infarct, mass effect or hemorrhage." He had a head and neck CTA which showed "no evidence for hemodynamically significant carotid stenosis, no evidence for large vessel intracranial thrombus, multinodular goiter, some of the nodules appear larger than on the prior thyroid ultrasound. I recommend a followup outpatient ultrasound for further evaluation." Mr. Barnett was admitted to the hospital for concern of transient ischemic attack. His workup has included a transthoracic echocardiogram, which showed the following: "Estimated ejection fraction is 55% to 60%. A patent foramen ovale is not demonstrated with color Doppler and agitated contrast. There is no evidence of aortic regurgitation. There is a trace mitral regurgitation and there is no significant changes when compared to the previous study done on 04/07." The patient had a brain MRI that showed the following: "Unremarkable MRI of the brain. No restricted diffusion to suggest acute infarct." The patient's labs were remarkable for repeat hemoglobin A1c which is 6.2, his triglycerides are 228, cholesterol 236, LDL 139, HDL 51.8. Mr. Barnett was seen in consultation by Dr. Arzate from Neurology. He has reviewed the entire workup and he feels that the patient's symptoms of transient left arm heaviness were indicative of a transient ischemic attack. He has recommended that the patient stop aspirin and go on to Plavix, which has been done during this hospitalization. Recommendation is also for atorvastatin , which has been started. At this time, the patient does not meet criteria for diabetes, though he should certainly followup closely with Dr. Hudson and maintain on a low carbohydrate diet. His blood pressure has been running systolically 100 to 140. He is not currently on any medication for that. I recommend that he continue to follow with Dr. Hudson for monitoring of his blood pressure as well. DISPOSITION: To home. DIET: Low-fat, low-salt, low-carb. ACTIVITY: As tolerated. FOLLOWUP PLANS: Please follow up with ultrasound for multinodular goiter. Please follow up with Dr. Hudson in the next 1 to 2 weeks regarding this acute hospitalization for transient ischemic attack and the goiter as mentioned. TIME SPENT: Approximately 60 minutes was spent in the discharge of this patient, more than half the time was spent with the patient at the bedside reviewing the events leading up to this hospitalization performing the physical examination and reviewing my plan of care. EVELYNE GIRON, TOO [id number]/[facility] #: [id number] [facility]
== END 2017-06-27 15:08 | disposition home or self-care (01) | DRG 69 ==
LOC: ED 14:03 → MEDTELE 21:16 → OBSVTOIN 06-25 13:54 → MEDTELE 06-25 20:07
PROVIDERS: ADMIT Hospitalist; ATTEND Internal Medicine
DX: G45.9 Transient cerebral ischemic attack, unspecified (principal); N20.9 Urinary calculus, unspecified; Z21 Asymptomatic human immunodeficiency virus [HIV] infection status; E04.2 Nontoxic multinodular goiter; Z66 Do not resuscitate; J45.909 Unspecified asthma, uncomplicated; F41.9 Anxiety disorder, unspecified; F32.9 Major depressive disorder, single episode, unspecified; E78.5 Hyperlipidemia, unspecified; I34.0 Nonrheumatic mitral (valve) insufficiency; Z79.02 Long term (current) use of antithrombotics/antiplatelets; Z87.891 Personal history of nicotine dependence; Z82.3 Family history of stroke; Z80.42 Family history of malignant neoplasm of prostate; Z83.3 Family history of diabetes mellitus
CPT/HCPCS: 36415; 70450; 70496; 70498; 70551; 80053; 80061; 81003; 81015; 82565; 83036; 84484; 84520; 85025; 85610; 85730; 87086; 93005; 93306; 94760; 99285; A9270-GY; G0378; G8978-GP-CI; G8979-GP-CI; G8980-GP-CI; J1644; Q9967

== ENCOUNTER 2018-03-27 00:32 | Emergency (ER) | payer MEDICARE, BC ==
[2018-03-27 01:31] LABS: ABS Basophils 0 10^3/ul (0-0.2); ABS Eosinophils 0.1 10^3/ul (0-0.6); ABS Lymphocytes 2.1 10^3/ul (1.0-4.8); ABS Monocytes 0.6 10^3/ul (0-0.8); ABS Neutrophils 5.8 10^3/ul (1.5-7.7); ABS Nucleated RBC 0 10^3/ul; Eosinophil % 0.9 % (0-6); Hematocrit 42 % (42-52); Hemoglobin 13.9 g/dl (14.0-18.0); Mean Corpuscular HGB Conc 33 g/dl (31-36); Mean Corpuscular Hemoglobin 29 pg (27-31); Mean Corpuscular Volume 89 fL (80-94); Nucleated Red Blood Cells % 0.2; Platelet Count 211 10^3/ul (150-450); Red Blood Count 4.74 10^6/ul (4.00-5.40); Red Cell Distribution Width 14 % (10.5-15); White Blood Count 8.6 10^3/ul (3.5-10.8)
[2018-03-27 01:51] LABS: EGFR Non-African American 73.1 (>60)
[2018-03-27] MEDS ORDERED: NS 0.9% 1000 ML* 1,000 ML IV ONE (02:29)
[2018-03-27] MEDS ORDERED: Morphine INJ* 4 MG/ML 1 ML SYRINGE (NEW SYRINGE VERSION) IV ONE (02:30)
[2018-03-27] MEDS ORDERED: Ondansetron INJ* 2 MG/ML VIAL IV ONE (02:30)
[2018-03-27 02:40] LABS: Urine Red Blood Cell 3+(>10/hpf) (Absent); Urine White Blood Cell Trace(0-5/hpf) (Absent)
[2018-03-27 02:48] LABS: Urine Appearance Cloudy; Urine Blood 3+ (Negative); Urine Color Yellow; Urine Ketones Negative (Negative); Urine Protein Negative (Negative); Urine Specific Gravity 1.011 (1.010-1.030); Urine Urobilinogen Negative (Negative)
--- NOTE | 2018-03-27 03:05 | ED ---
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 The pt states the abd pain is on the right side and radiates to the center of the abd. Pt reports vomiting, and nausea. The pain is reported to be constant. He has seen his urologist (Dr. Lorenzo). He has had stents placed in his kidneys as per pt report.The patient rates the pain 9/10 in severity. Symptoms aggravated by nothing. Symptoms alleviated by nothing. PMHx of renal calculi. - History of Current Complaint Chief Complaint: EDAbdPain Stated Complaint: ABD PAIN Time Seen by Provider: 03/27/18 02:18 Hx Obtained From: Patient Onset/Duration: Sudden Onset Severity Initially: Severe Severity Currently: Severe Pain Intensity: 9 Pain Scale Used: 0-10 Numeric Aggravating Factor(s): Nothing Alleviating Factor(s): Nothing Associated Signs And Symptoms: Positive: Nausea, Vomiting - Allergies/Home Medications Allergies/Adverse Reactions: Allergies Allergy/AdvReac Type Severity Reaction Status Date / Time No Known Allergies Allergy Verified 01/31/18 10:45 PMH/Surg Hx/FS Hx/Imm Hx Endocrine/Hematology History: Reports: Hx Anemia - HX OF IN THE PAST Denies: Hx Diabetes Cardiovascular History: Reports: Other Cardiovascular Problems/Disorders - PVC's , vasovagals occasionally Denies: Hx Hypertension, Hx Pacemaker/ICD Respiratory History: Reports: Hx Asthma - A CHILD History: Reports: Hx Kidney Stones - CHRONIC Denies: Hx Renal Disease Musculoskeletal History: Reports: Hx Bursitis - BILATERAL SHOULDER- NO PROBLEMS RECENTLY Sensory History: Reports: Hx Contacts or Glasses - READERS Denies: Hx Hearing Aid Opthamlomology History: Reports: Hx Contacts or Glasses - READERS Psychiatric History: Reports: Hx Anxiety - ON MEDICATION FOR, Hx Depression - ON MEDICATION FOR Denies: Hx Panic Disorder - Surgical History Surgery Procedure, Year, and Place: 10/2015- STENT PLACEMENT FOR KIDNEY AND REMOVED. MULTIPLE PROCEDURES FOR KIDNEY SURGERIES-LITHROTRIPSY. PILONIDAL CYST REMOVED MANY YEARS AGO Hx Anesthesia Reactions: No Infectious Disease History: No Infectious Disease History: Reports: Hx Human Immunodeficiency Virus (HIV) Denies: Traveled Outside the [place] in Last 30 Days - Family History Known Family History: Negative: Hypertension, Diabetes - Social History Alcohol Use: Rare Substance Use Type: Reports: None Smoking Status (MU): Light Every Day Tobacco Smoker Type: Cigarettes Amount Used/How Often: 1 PPD X 51 YEARS Have You Smoked in the Last Year: Yes Review of Systems Constitutional: Negative Eyes: Negative ENT: Negative Cardiovascular: Negative Respiratory: Negative Positive: Abdominal Pain, Vomiting, Nausea Genitourinary: Negative Musculoskeletal: Negative Skin: Negative Neurological: Negative Psychological: Normal All Other Systems Reviewed And Are Negative: Yes Physical Exam - Summary Physical Exam Summary: VITAL SIGNS: Reviewed. GENERAL: Patient is a well-developed and nourished (MALE) who is lying comfortable in the stretcher. Patient is not in any acute respiratory distress. HEAD AND FACE: No signs of trauma. No ecchymosis, hematomas or skull depressions. No sinus tenderness. EYES: PERRLA, EOMI x 2, No injected conjunctiva, no nystagmus. EARS: Hearing grossly intact. Ear canals and tympanic membranes are within normal limits. MOUTH: Oropharynx within im limits. NECK: Supple, trachea is midline, no adenopathy, no JVD, no carotid bruit, no c- spine tenderness, neck with full ROM. CHEST: Symmetric, no tenderness at palpation LUNGS: Clear to auscultation bilaterally. No wheezing or crackles. CVS: Regular rate and rhythm, S1 and S2 present, no murmurs or gallops appreciated. ABDOMEN: Distension EXTREMITIES: FROM in all major joints, no edema, no cyanosis or clubbing. NEURO: Alert and oriented x 3. No acute neurological deficits. Speech is normal and follows commands. SKIN: Dry and warm Triage Information Reviewed: Yes Vital Signs On Initial Exam: Initial Vitals Temp Pulse Resp BP Pulse Ox 97.5 F 85 22 150/80 100 03/27/18 00:45 03/27/18 00:45 03/27/18 00:45 03/27/18 00:45 03/27/18 00:45 Vital Signs Reviewed: Yes Diagnostics - Vital Signs Vital Signs Temp Pulse Resp BP Pulse Ox 03/27/18 02:31 74 100 03/27/18 02:28 144/73 03/27/18 00:45 97.5 F 85 22 150/80 100 - Laboratory Lab Results: Lab Results 03/27/18 03/27/18 03/27/18 Range/Units 01:24 01:24 01:24 WBC 8.6 (3.5-10.8) 10^3/ul RBC 4.74 (4.00-5.40) 10^6/ul Hgb 13.9 L (14.0-18.0) g/dl Hct 42 (42-52) % MCV 89 (80-94) fL MCH 29 (27-31) pg MCHC 33 (31-36) g/dl RDW 14 (10.5-15) % Plt Count 211 (150-450) 10^3/ul MPV 8.0 (7.4-10.4) fL Neut % (Auto) 67.4 (38-83) % Lymph % (Auto) 24.0 L (25-47) % Rolette % (Auto) 7.2 H (0-7) % Eos % (Auto) 0.9 (0-6) % Baso % (Auto) 0.5 (0-2) % Absolute Neuts (auto) 5.8 (1.5-7.7) 10^3/ul Absolute Lymphs (auto) 2.1 (1.0-4.8) 10^3/ul Absolute Monos (auto) 0.6 (0-0.8) 10^3/ul Absolute Eos (auto) 0.1 (0-0.6) 10^3/ul Absolute Basos (auto) 0 (0-0.2) 10^3/ul Absolute Nucleated RBC 0 10^3/ul Nucleated RBC % 0.2 Sodium 142 (135-145) mmol/L Potassium 3.8 (3.5-5.0) mmol/L Chloride 107 (101-111) mmol/L Carbon Dioxide 26 (22-32) mmol/L Anion Gap 9 (2-11) mmol/L BUN 15 (6-24) mg/dL Creatinine 1.02 (0.67-1.17) mg/dL Est GFR ( Amer) 88.4 (>60) Est GFR (Non-Af Amer) 73.1 (>60) BUN/Creatinine Ratio 14.7 (8-20) Glucose 134 H (70-100) mg/dL Lactic Acid 2.5 H* (0.5-2.0) mmol/L Calcium 10.0 (8.6-10.3) mg/dL Total Bilirubin 0.30 (0.2-1.0) mg/dL AST 26 (13-39) U/L ALT 34 (7-52) U/L Alkaline Phosphatase 86 (34-104) U/L C-Reactive Protein 3.86 (<8.01) mg/L Total Protein 7.8 (6.4-8.9) g/dL Albumin 4.6 (3.2-5.2) g/dL Globulin 3.2 (2-4) g/dL Albumin/Globulin Ratio 1.4 (1-3) Lipase 20 (11.0-82.0) U/L Urine Color Urine Appearance Urine pH (5-9) Ur Specific [place] (1.010-1.030) Urine Protein (Negative) Urine Ketones (Negative) Urine Blood (Negative) Urine Nitrate (Negative) Urine Bilirubin (Negative) Urine Urobilinogen (Negative) Ur Leukocyte Esterase (Negative) Urine WBC (Auto) (Absent) Urine RBC (Auto) (Absent) Ur Squamous Epith Cells (Absent) Urine Bacteria (Absent) Urine Glucose (Negative) Urine Ascorbic Acid 03/27/18 Range/Units 02:25 WBC (3.5-10.8) 10^3/ul RBC (4.00-5.40) 10^6/ul Hgb (14.0-18.0) g/dl Hct (42-52) % MCV (80-94) fL MCH (27-31) pg MCHC (31-36) g/dl RDW (10.5-15) % Plt Count (150-450) 10^3/ul MPV (7.4-10.4) fL Neut % (Auto) (38-83) % Lymph % (Auto) (25-47) % Rolette % (Auto) (0-7) % Eos % (Auto) (0-6) % Baso % (Auto) (0-2) % Absolute Neuts (auto) (1.5-7.7) 10^3/ul Absolute Lymphs (auto) (1.0-4.8) 10^3/ul Absolute Monos (auto) (0-0.8) 10^3/ul Absolute Eos (auto) (0-0.6) 10^3/ul Absolute Basos (auto) (0-0.2) 10^3/ul Absolute Nucleated RBC 10^3/ul Nucleated RBC % Sodium (135-145) mmol/L Potassium (3.5-5.0) mmol/L Chloride (101-111) mmol/L Carbon Dioxide (22-32) mmol/L Anion Gap (2-11) mmol/L BUN (6-24) mg/dL Creatinine (0.67-1.17) mg/dL Est GFR ( Amer) (>60) Est GFR (Non-Af Amer) (>60) BUN/Creatinine Ratio (8-20) Glucose (70-100) mg/dL Lactic Acid (0.5-2.0) mmol/L Calcium (8.6-10.3) mg/dL Total Bilirubin (0.2-1.0) mg/dL AST (13-39) U/L ALT (7-52) U/L Alkaline Phosphatase (34-104) U/L C-Reactive Protein (<8.01) mg/L Total Protein (6.4-8.9) g/dL Albumin (3.2-5.2) g/dL Globulin (2-4) g/dL Albumin/Globulin Ratio (1-3) Lipase (11.0-82.0) U/L Urine Color Yellow Urine Appearance Cloudy Urine pH 8.0 (5-9) Ur Specific [place] 1.011 (1.010-1.030) Urine Protein Negative (Negative) Urine Ketones Negative (Negative) Urine Blood 3+ A (Negative) Urine Nitrate Negative (Negative) Urine Bilirubin Negative (Negative) Urine Urobilinogen Negative (Negative) Ur Leukocyte Esterase Negative (Negative) Urine WBC (Auto) Trace(0-5/hpf) (Absent) Urine RBC (Auto) 3+(>10/hpf) A (Absent) Ur Squamous Epith Cells Present A (Absent) Urine Bacteria Absent (Absent) Urine Glucose 1+(50 mg/dl) A (Negative) Urine Ascorbic Acid Not Reportable Result Diagrams: 03/27/18 01:24 03/27/18 01:24 Lab Statement: Any lab studies that have been ordered have been reviewed, and results considered in the medical decision making process. - CT CT A/P CT Interpretation Completed By: Radiologist - A/P CT Reveals 1. Multiple bilateral nonobstructing renal calculi. 2. Calculus in the mid right ureter with hydroureteronephrosis. 3. Bilateral renal cysts. 4. Multiple pulmonary cysts. 5. Small right inguinal hernia containing a small portion of the bladder. 6. Enlarged prostate gland with prostatic calcifications. As per Radiologist report. The ED Physician has reviewed this radiology report. Abdominal Pain Fem Course/Dx - Course Course Of Treatment: The pt is 68 y.o male presenting to the [facility] with a chief complaint of abd pain. The pt states that he has a hx of Renal calculi. The pt received a A/P CT which revealed positive findings as per radiologist report. The pt will be discharged home with instruction to follow up with his urologist (Dr. Lorenzo). The dx will be right ureteral stone and renal colic. - Diagnoses Provider Diagnoses: Renal colic, Right ureteral stone Discharge - Sign-Out/Discharge Documenting (check all that apply): Patient Departure - Discharge Home - Discharge Plan Condition: Stable Disposition: HOME Patient Education Materials: Renal Colic (ED), Ureteral Stones (ED) Referrals: Chapin Hudson MD [Primary Care Provider] - Angel Lorenzo MD [Medical Doctor] - Additional Instructions: RETURN TO THE EMERGENCY DEPARTMENT FOR CHANGING OR WORSENING SYMPTOMS. FOLLOW UP WITH UROLOGIST IN 1-2 DAYS. - Attestation Statements Document Initiated by Scribe: Yes Documenting Scribe: Jerzy Bailey Provider For Whom Scribe is Documenting (Include Credential): Dr. Riley Au Scribe Attestation: Jerzy Negrete, scribed for Dr. Riley Au on 03/27/18 at 0352.
[2018-03-27] MEDS ORDERED: oxyCODONE/Acetamin 5/325 MG* TAB PO ONE (03:08)
--- NOTE | 2018-03-27 03:37 | RAD ---
EXAM: CT Abdomen and Pelvis Without Intravenous Contrast EXAM DATE/TIME: 03/27/2018 3:03 AM CLINICAL HISTORY: 68 years old, male; Pain; Abdominal pain; Flank; Right; Additional info: RT flank pain TECHNIQUE: Axial computed tomography images of the abdomen and pelvis without intravenous contrast. All CT scans at this facility use at least one of these dose optimization techniques: automated exposure control; mA and/or kV adjustment per patient size (includes targeted exams where dose is matched to clinical indication); or iterative reconstruction. Coronal and sagittal reformatted images were created and reviewed. COMPARISON: XA RETRO PYEL PYELOGRAM RETROGRADE 10/24/2015 11:24 AM FINDINGS: Lower thorax: Multiple small cysts are seen in the lungs bilaterally. ABDOMEN: Liver: Normal. No mass. Gallbladder and bile ducts: Normal. No calcified stones. No ductal dilation. Pancreas: Normal. No ductal dilation. Spleen: Normal. No splenomegaly. Adrenals: Normal. No mass. Kidneys and ureters: Multiple bilateral nonobstructing renal calculi are present. There is an 8mm left renal cortical nodule, probably cyst. There is a cyst in the upper pole of the right kidney measuring 4.8 cm. There is a calculus in the mid right ureter measuring 5 x 9 mm with mild to moderate right hydroureteronephrosis. There is mild right perinephric stranding. Stomach and bowel: Normal. No obstruction. No mucosal thickening. Appendix: The appendix is normal in appearance. PELVIS: Bladder: There is a small right inguinal hernia which contains a small portion of the bladder Reproductive: The prostate gland is enlarged with prostatic calcifications. ABDOMEN and PELVIS: Intraperitoneal space: Normal. No free air. No significant fluid collection. Bones/joints: No acute fracture. No dislocation. Soft tissues: Unremarkable. Vasculature: Arteriosclerotic changes are identified. Lymph nodes: Normal. No enlarged lymph nodes. IMPRESSION: 1. Multiple bilateral nonobstructing renal calculi. 2. Calculus in the mid right ureter with hydroureteronephrosis. 3. Bilateral renal cysts. 4. Multiple pulmonary cysts. 5. Small right inguinal hernia containing a small portion of the bladder. 6. Enlarged prostate gland with prostatic calcifications. COMMENT: Consistent with the [employer]'s Incidental Findings Committee Report (J Am Carter Radiol 2010): Unless the patient's specific circumstances suggest otherwise, any liver lesion 0.5 cm or less, any cystic kidney lesion less than 1.0 cm, and/or any adrenal lesion 1.0 cm or less not otherwise characterized in this report as possessing suspicious or indeterminate imaging features is/are highly likely to be benign and do not require follow-up imaging or biopsy. To contact [facility] with a general question: [facility] - [phone] For direct physician to physician contact: Physician Hotline - [phone] [facility] ([facility] Facility ID #[id number])
[2018-03-27 05:01] VITALS: BP 146/83
== END 2018-03-27 04:35 | disposition home or self-care (01) ==
LOC: ED 00:32
DX: N20.1 Calculus of ureter (principal); N23 Unspecified renal colic; Z87.442 Personal history of urinary calculi; F41.9 Anxiety disorder, unspecified; F32.9 Major depressive disorder, single episode, unspecified; F17.210 Nicotine dependence, cigarettes, uncomplicated
CPT/HCPCS: 36415; 74176; 80053; 81003; 81015; 83605; 83690; 85025; 86140; 87086; 96361; 96374; 96375; 99283; A9270-GY; J2270; J2405

== ENCOUNTER 2018-03-29 07:29 | Day surgery (SDC) | payer MEDICARE, BC ==
--- NOTE | 2018-03-28 16:04 | HP ---
CC: Dr. Chapin Hudson * ADMITTING HISTORY AND PHYSICAL: DATE OF ADMISSION: 03/29/18. ADMITTING DIAGNOSIS: 1. Calculus, right ureter. 2. Right hydronephrosis. 3. Bilateral renal calculi. PLANNED PROCEDURE: Right ureteroscopy, possible laser and stent insertion ( possibly to be followed in the near future by shock wave lithotripsy). SURGEON: Dr. Lorenzo. HISTORY OF PRESENT ILLNESS: Pankaj Barnett is a 68-year-old gentleman with a history of recurrent bilateral renal and ureteral calculi. He had been in the emergency room for right flank pain and nausea, and was noted to have a 9 x 5 mm calculus in the mid right ureter with right hydronephrosis. He has been managed conservatively and has continued to require pain medication and is now being brought in for right ureteroscopy, possibly to be followed in the near future by lithotripsy for the additional renal calculi noted on the CT. PAST MEDICAL HISTORY: Significant for: 1. HIV positivity. 2. Recurrent renal calculi. 3. High cholesterol. 4. Depression. MEDICATIONS ON ADMISSION: 1. Descovy 200-25, 1 tablet daily. 2. Efavirenz 600 mg daily. 3. Viibryd 40 mg daily. 4. Atorvastatin 20 mg daily. 5. Aspirin 162 mg daily. 6. Percocet p.r.n. ALLERGIES: No known drug allergies. REVIEW OF SYSTEMS: He is otherwise in excellent health. There is no history of diabetes mellitus or any other major systemic illness. PHYSICAL EXAMINATION GENERAL: Reveals a pleasant -[place] middle-aged gentleman. VITAL SIGNS: Blood pressure is 120/70, pulse 76 per minute and regular, oxygen saturation 98% on room air, temperature 97. LUNGS: Clear bilaterally. CARDIOVASCULAR EXAM: Regular rate and rhythm. S1, S2. ABDOMEN: Soft with right flank tenderness. IMPRESSION: A 68-year-old gentleman with a right ureteral calculus causing right flank pain and nausea, and additional bilateral renal calculi. PLAN: I recommended continuing conservative management at least for another 24 to 36 hours to try to allow for spontaneous stone passage and he is agreeable to that. If he is unable to pass the stone, then the plan will be to proceed with right ureteroscopy, possible laser and stent insertion (possibly to be followed in the near future by shock wave lithotripsy). [id number]/[facility] #: [id number] TY
[~2018-03-29 07:29] MED LIST: Buffered Lidocaine 0.9% SYRIN* 5 ML/SYR SYRINGE INTRADERM ONE; Gentamicin ADULT (*) 140 MG in NS 0.9% 100 ML* 100 ML IVPB ONE
[2018-03-29] MEDS ORDERED: cefTRIAXone(*) 2 GM ADDV.VIAL IVPB ONE (07:33)
[2018-03-29] MEDS ORDERED: fentaNYL* 50 MCG/ML 2 ML VIAL (100 MCG VIAL) ONE ×2 (08:24→10:06)
[2018-03-29] MEDS ORDERED: Iohexol 180 (CONTRAST) 10 ML SDV IV ONE (09:56)
[2018-03-29] MEDS ORDERED: Propofol* 10 MG/ML 20 ML BTL IV PUSH ONE (10:06)
[2018-03-29] MEDS ORDERED: Lidocaine 2% PF * 5 ML VIAL ONE (10:06)
[2018-03-29] MEDS ORDERED: fentaNYL* 50 MCG/ML 2 ML VIAL (100 MCG VIAL) IV PRN (10:34)
[2018-03-29] MEDS ORDERED: Naloxone* 0.4 MG/ML 1 ML VIAL IV PRN (10:34)
[2018-03-29] MEDS ORDERED: Ondansetron INJ* 2 MG/ML VIAL IV PRN (10:34)
[2018-03-29 12:07] VITALS: BP 125/75
--- NOTE | 2018-03-30 00:58 | OP ---
CC: Chapin Hudson MD * DATE OF OPERATION: 03/29/18 - [facility] DATE OF : 54 SURGEON: Angel Lorenzo MD ANESTHESIOLOGIST: Dr. Corrigan. ANESTHESIA: General. PRE-OP DIAGNOSES: 1. Right hydronephrosis. 2. Calculus, right ureter. 3. Bilateral renal calculi. POST-OP DIAGNOSIS: OPERATIVE PROCEDURE: Cystoscopy, right retrograde pyelogram, right ureteroscopy , laser lithotripsy of right ureteral calculus and removal of calculus fragments and right stent insertion. COMPLICATIONS: None. STENT USED: A 6-Beninese stent, right ureter. OPERATIVE FINDINGS: 1. Moderately enlarged prostate. 2. Obstructing calculus, right mid ureter (8 to 9 mm). 3. Right hydronephrosis. 4. Bilateral renal calculi. INDICATIONS: Pankaj Barnett is a 68-year-old gentleman with a history of recurrent bilateral renal calculi. He was evaluated for an obstructing right ureteral calculus and continues to have episodic right flank pain requiring pain medication and would like to have the calculus removed. In addition, he has bilateral renal calculi and will likely require lithotripsy in the near future also. DESCRIPTION OF PROCEDURE: After induction of general anesthesia, the patient was placed in dorsal lithotomy position. Sequential compression devices were in place and functioning. Initial cystoscopy revealed a normal-appearing urethra , a moderately enlarged prostate. The bladder was examined and was unremarkable. Retrograde pyelogram revealed right hydronephrosis and proximal hydroureter. A 6- Beninese semirigid ureteroscope was introduced and advanced under direct vision in the mid right ureter. A fairly large 8 to 9 mm calculus was noted to be impacted with surrounding inflammatory response. The ureter was fairly narrow below the level of the calculus. The stone was carefully disengaged and using a 550 micron holmium laser, was fragmented into multiple pieces. All of the fragments were retrieved and sent for analysis. A 6-Beninese stent was introduced and positioned under fluoroscopy with good proximal and distal positioning obtained. My plan is to obtain a postoperative x-ray to assess the need for lithotripsy for his remaining renal calculi. [id number]/[facility] #: [id number] MTDD
== END 2018-03-29 14:00 | disposition home or self-care (01) ==
LOC: OR 07:29
PROVIDERS: ATTEND Urology
DX: N13.2 Hydronephrosis with renal and ureteral calculous obstruction (principal); N40.0 Benign prostatic hyperplasia without lower urinary tract symptoms; Z21 Asymptomatic human immunodeficiency virus [HIV] infection status; Z87.891 Personal history of nicotine dependence; F41.8 Other specified anxiety disorders; I49.3 Ventricular premature depolarization
CPT/HCPCS: 74018; 74420; 82365; 88300; C1876; J0696; J1580; J2704; J3010

== ENCOUNTER → 2018-04-10 09:00 | Day surgery (SDC) | payer MEDICARE, BC ==
[~2018-04-10 09:00] MED LIST changes: +Acetaminophen TAB* 325 MG PO PRN; +Dexamethasone IV* 4 MG/ML 1 ML (4 MG) ONE; +DiMENhydriNATE IV* 50 MG/ML VIAL IV PUSH PRN; +Famotidine IV* 10 MG/ML 2 ML (20 mg) ONE; +Furosemide IV* 10 MG/ML 2 ML VIAL (20 MG) ONE; -Gentamicin ADULT (*) 140 MG in NS 0.9% 100 ML* 100 ML IVPB ONE; +HYDROcodone/ACETAMIN 5-325 MG* 1 TAB PO PRN; +Levalbuterol 1.25MG/0.5ML NEB INH PRN; +Lidocaine 2% PF * 5 ML VIAL ONE; +Midazolam* 1 MG/ML 2 ML VIAL (2 MG) ONE; +Naloxone* 0.4 MG/ML 1 ML VIAL IV PRN; +Ondansetron INJ* 2 MG/ML VIAL IV PRN; +PROCHLORPERAZINE INJ 5 MG/ML 2 ML VIAL IV PRN; +Propofol* 10 MG/ML 20 ML BTL IV PUSH ONE; +cefTRIAXone(*) 2 GM ADDV.VIAL IVPB ONE; +diPHENhydraMINE IV* 50 MG/ML 1 ml VIAL (BENADRYL) IV PRN; +fentaNYL* 50 MCG/ML 2 ML VIAL (100 MCG VIAL) IV PRN; +fentaNYL* 50 MCG/ML 2 ML VIAL (100 MCG VIAL) ONE
[2018-04-10 13:47] VITALS: BP 139/81
--- NOTE | 2018-04-11 08:23 | OP ---
CC: Dr. Chapin Hudson; Dr. Angel Lorenzo OPERATIVE REPORT: DATE OF OPERATION: 04/10/18 DATE OF : 54 SURGEON: Angel Lorenzo MD ANESTHESIOLOGIST: Dr. Mcnulty. ANESTHESIA: General. PRE-OP DIAGNOSIS: Right renal calculus. POST-OP DIAGNOSIS: Right renal calculus. OPERATIVE PROCEDURE: Shock wave lithotripsy of right renal calculus. INDICATIONS: Pankaj Barnett is a 68-year-old gentleman, who had undergone ureteroscopy and laser li thotripsy for an obstructing calculus in the right mid ureter. That stone was successfully treated a nd at that time, he was found to have an additional calculus in the right kidney and is now being bro ught in for shock wave lithotripsy of the right renal calculus. COMPLICATIONS: None. POSTOPERATIVE CONDITION: Stable. DESCRIPTION OF PROCEDURE: After induction of general anesthesia, the patient was placed on the litho tripsy table in supine position. The calculus in the upper pole area of the right kidney was identif ied and was localized using fluoroscopy. Shock wave lithotripsy was commenced at a rate of 60 shocks per minute. After the initial 300 shocks, there was a pause in lithotripsy for several minutes in a n effort to minimize any potential trauma to the kidney. Lithotripsy was then resumed and a total of 2400 shocks were administered. The plan is to obtain a postoperative x-ray to better assess the deg ree of fragmentation before proceeding with stent removal as an outpatient in the office. [id number]/[facility] #: [id number]
== END | disposition home or self-care (01) ==
LOC: OR 09:00
PROVIDERS: ATTEND Urology
DX: N20.0 Calculus of kidney (principal); I49.3 Ventricular premature depolarization; Z87.891 Personal history of nicotine dependence; Z87.442 Personal history of urinary calculi; Z21 Asymptomatic human immunodeficiency virus [HIV] infection status; E78.00 Pure hypercholesterolemia, unspecified
CPT/HCPCS: 74018; J0696; J1100; J1940; J2250; J2704; J3010

== ENCOUNTER 2018-10-12 00:28 | Emergency (ER) | payer MEDICARE, BC ==
--- OUTSIDE RECORDS SUMMARY | 2018-10-12 00:57 | XMS REPORT | Continuity of Care Document ---
:1950 External Reference #:[id number] Author Name Sabrina Cramer Care Team Providers Name Role Phone Angel Lorenzo MD Care Team Information Card Cleaner Unavailable Chapin Hudson MD Primary Care Physician Unavailable Payers Date Identification Numbers Payment Provider Subscriber Effective: 2016 Policy Number: [id number] Medicare Pankaj Torres PayID: [id number] [address] [place] [address] Effective: 2013 Policy Number: [id number] [facility] Keith Gonzalez PayID: [id number] [address] [place] [address] Advance Directives Description No Information Available Problems Active Problems Provider Date Asymptomatic human immunodeficiency virus Yovani Fleming M.D. Onset: infection Moderate depression Yovani Fleming M.D. Onset: 10/22/2013 Cigarette smoker Yovani Fleming M.D. Onset: 10/22/2013 Kidney stone Yovani Fleming M.D. 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 Tobacco Use Start: Unknown End: Former Cigarette Smoker Unknown Smoking Status Reviewed: 09/14/18 Former Cigarette Smoker ETOH Use Rarely consumes alcohol Recreational Drug Use Denies Drug Use Tobacco Use Start: Unknown End: Patient is a former quit 03/21/2017 Unknown smoker Exercise Type/Frequency Does not exercise Allergies, Adverse Reactions, Alerts Description No Known Drug Allergies Medications Active Medications SIG Qnty Indications Ordering Date Provider Descovy Take 1 Tablet By 90tabs Amadeo Jorgensen 07/16/2016 200-25mg Tablets Mouth Every Day Balaji Fleming Mirtazapine Chapin Hudson, 15mg Tablets Sodium Chloride 1 by mouth every Unknown 1gm other day Tablets Aspirin 81 Low Dose 1 by mouth every Unknown 81mg day Chewtabs Efavirenz 1 daily PO at PM Unknown 600mg Tablets Atorvastatin Calcium Take 1 Tablet By Unknown 20mg Mouth Every Day Tablets Vitamin D-3 1 by mouth every Unknown 1000Unit day Capsules Betamethasone to apply to 15g Unknown Dipropionate affected area 0.05% twice a day prn Ointment Ensure multiple flavors 50units Unknown Liquid every day as needed [place]-3 Fish Oil 1 by mouth qd Unknown 300mg Capsules Vitamin C daily Unknown 500mg Tablets Multivitamins 1 capsule berhane;y 90caps Unknown Capsules Christopher Aspirin Ec Low 1 by mouth every 100tabs Unknown Dose day 162mg Tablets DR History Medications Nicorette 1 lozenge every 60units F17.210 Janki Arias, 02/10/2017 - 4mg 6 hours as 01/29/2018 Lozenges needed [facility] Nicotine 1 gum, every 6 60units F17.210 Janki Arias, 12/28/2016 - Polacrilex hours as needed 02/13/2017 4mg Gum Sustiva Take 1 Tablet By 90tabs Amadeo Jorgensen 07/16/2016 - 600mg Tablets Mouth AT Bedtime Balaji Fleming 09/13/2018 Triumeq 1 by mouth every 90tabs Yovani Jorgensen 02/10/2016 - [id number] day Balaji Fleming 09/20/2016 Tablets Odefsey 1 by mouth every 90tabs Z21 Yovani Jorgensen 02/02/2016 - 200-25-25mg day Balaji Fleming 02/02/2016 Tablets Bupropion HCL ER 1 by mouth every 90tabs Unknown - (SR) day 09/10/2015 200mg Tablets ER 12HR Vitamin D Take 1 Capsule Unknown - (Ergocalciferol) By Mouth Once A 05/01/2015 Week. [id number] Capsules Atripla Take 1 Tablet By 90tabs Yovani Bonds. - [phone] Mouth AT Bedtime Balaji Fleming 02/10/2016 Tablets Viibryd Take 1 Tablet By Unknown - 40mg Tablets Mouth Every Day 09/13/2018 ( started May 2014) Clopidogrel Take 1 Tablet By Unknown - Bisulfate Mouth Every Day 01/29/2018 75mg Tablets Efavirenz take 1 tablet at Unknown - 600mg bedtime 09/13/2018 Tablets Medications Administered in Office Medication SIG Qnty Indications Ordering Provider Date [facility] pharmacy administered Unknown 07/28/2018 Injection Immunizations CPT Code Status Date Vaccine Lot # [id number] Given 01/19/2017 Flu Vaccine NOS [id number] Given 03/01/2016 Influenza Virus 3Yrs & Over [id number] Given 05/01/2015 Tdap - Tetanus/Diptheria/Acellular Pertussis [id number] 79995 Given 04/23/2014 Pneumonia Vaccine [id number] Given 10/22/2013 Pneumococcal Conjugate Vaccine 13 Valent For [id number] Intramuscular Use Vital Signs Date Vital Result Comment 09/14/2018 1:33pm Height 72 inches 6'0" 6'0 Weight 161.00 lb Heart Rate 78 /min BP Systolic Sitting 132 mmHg left upper arm regular cuff BP Diastolic Sitting 60 mmHg left upper arm regular cuff Respiratory Rate 12 /min O2 % BldC Oximetry 97 % BMI (Body Mass Index) 21.8 kg/m2 07/31/2018 1:23pm Height 72 inches 6'0" 6'0 Weight 151.38 lb Heart Rate 60 /min BP Systolic Sitting 120 mmHg BP Diastolic Sitting 80 mmHg Respiratory Rate 14 /min Body Temperature 98.4 F BMI (Body Mass Index) 20.5 kg/m2 03/15/2018 11:09am Weight 160.00 lb with shoes Heart Rate 88 /min BP Systolic Sitting 130 mmHg Lue reg cuff BP Diastolic Sitting 80 mmHg Lue reg cuff BP Systolic Standing 135 mmHg Lue reg cuff BP Diastolic Standing 85 mmHg Lue reg cuff Ejection Fraction 55-60% date 06/27/17 ECHO 01/30/2018 1:46pm Height 72 inches 6'0" Weight 160.00 lb Heart Rate 84 /min BP Systolic Sitting 128 mmHg BP Diastolic Sitting 68 mmHg Respiratory Rate 14 /min Body Temperature 97.5 F BMI (Body Mass Index) 21.7 kg/m2 09/28/2017 10:57am Height 72 inches 6'0" Weight 156.00 lb Heart Rate 68 /min BP Systolic Sitting 120 mmHg BP Diastolic Sitting 60 mmHg Respiratory Rate 14 /min Body Temperature 97.7 F BMI (Body Mass Index) 21.2 kg/m2 09/13/2017 1:38pm Height 72 inches 6'0" Weight 156.00 lb Heart Rate 88 /min BP Systolic Sitting 128 mmHg BP Diastolic Sitting 72 mmHg Respiratory Rate 14 /min O2 % BldC Oximetry 98 % BMI (Body Mass Index) 21.2 kg/m2 05/31/2017 11:10am Height 72 inches 6'0" Weight 161.25 lb Heart Rate 84 /min BP Systolic Sitting 110 mmHg BP Diastolic Sitting 78 mmHg Respiratory Rate 14 /min Body Temperature 97.3 F BMI (Body Mass Index) 21.9 kg/m2 03/15/2017 1:55pm Height 72 inches 6'0" Weight 158.00 lb w/ shoes Heart Rate 90 /min reg BP Systolic Sitting 130 mmHg Rue, reg cuff BP Diastolic Sitting 80 mmHg Rue, reg cuff Respiratory Rate 16 /min O2 % BldC Oximetry 97 % on Ra BMI (Body Mass Index) 21.4 kg/m2 02/10/2017 1:24pm Height 72 inches 6'0" Weight 162.00 lb Heart Rate 91 /min BP Systolic Sitting 138 mmHg BP Diastolic Sitting 90 mmHg Respiratory Rate 16 /min Pain Level 0 O2 % BldC Oximetry 95 % BMI (Body Mass Index) 22.0 kg/m2 01/25/2017 11:20am Height 72 inches 6'0" Weight 162.38 lb Heart Rate 92 /min BP Systolic Sitting 124 mmHg BP Diastolic Sitting 68 mmHg Respiratory Rate 14 /min Body Temperature 97.3 F BMI (Body Mass Index) 22.0 kg/m2 12/28/2016 2:17pm Height 72 inches 6'0" Weight 153.00 lb Heart Rate 82 /min BP Systolic Sitting 138 mmHg BP Diastolic Sitting 90 mmHg Respiratory Rate 20 /min O2 % BldC Oximetry 98 % room air BMI (Body Mass Index) 20.7 kg/m2 Neck Circumference in inches 16 09/21/2016 10:46am Height 72 inches 6'0" Weight 162.12 lb Heart Rate 72 /min BP Systolic Sitting 120 mmHg BP Diastolic Sitting 84 mmHg Respiratory Rate 14 /min Body Temperature 97.0 F BMI (Body Mass Index) 22.0 kg/m2 07/16/2016 11:01am Height 72 inches 6'0" Weight 169.12 lb Heart Rate 75 /min BP Systolic Sitting 138 mmHg BP Diastolic Sitting 82 mmHg Respiratory Rate 14 /min Body Temperature 97.9 F O2 % BldC Oximetry 98 % BMI (Body Mass Index) 22.9 kg/m2 03/22/2016 1:44pm Height 72 inches 6'0" Weight 158.00 lb Heart Rate 84 /min BP Systolic Sitting 138 mmHg BP Diastolic Sitting 72 mmHg Respiratory Rate 14 /min Body Temperature 97.8 F BMI (Body Mass Index) 21.4 kg/m2 02/02/2016 1:35pm Height 72 inches 6'0" Weight 147.00 lb Heart Rate 80 /min BP Systolic Sitting 138 mmHg BP Diastolic Sitting 84 mmHg Respiratory Rate 14 /min Body Temperature 98.3 F BMI (Body Mass Index) 19.9 kg/m2 12/29/2015 1:29pm Height 72 inches 6'0" Weight 144.50 lb Heart Rate 80 /min BP Systolic Sitting 112 mmHg BP Diastolic Sitting 72 mmHg Respiratory Rate 14 /min Body Temperature 97.6 F BMI (Body Mass Index) 19.6 kg/m2 10/10/2015 1:21pm Height 72 inches 6'0" Weight 149.00 lb w/ shoes Heart Rate 86 /min reg BP Systolic Sitting 126 mmHg Rue, reg cuff BP Diastolic Sitting 78 mmHg Rue, reg cuff BP Systolic Standing 130 mmHg Rue BP Diastolic Standing 84 mmHg Rue Respiratory Rate 20 /min BMI (Body Mass Index) 20.2 kg/m2 Ejection Fraction 65-70% as of 08/01/15 echo 07/11/2015 1:42pm Height 72 inches 6'0" Weight 149.00 lb with shoes BP Systolic 134 mmHg Ra reg cuff BP Diastolic 82 mmHg Ra reg cuff BP Systolic Sitting 130 mmHg LA reg cuff BP Diastolic Sitting 82 mmHg LA reg cuff BP Systolic Standing 138 mmHg Ra reg cuff BP Diastolic Standing 86 mmHg Ra reg cuff BMI (Body Mass Index) 20.2 kg/m2 05/01/2015 12:46pm Height 72 inches 6'0" Weight 148.00 lb Heart Rate 84 /min BP Systolic Sitting 112 mmHg BP Diastolic Sitting 64 mmHg Respiratory Rate 14 /min Body Temperature 97.6 F BMI (Body Mass Index) 20.1 kg/m2 10/30/2014 1:31pm Height 72 inches 6'0" Weight 151.00 lb Heart Rate 84 /min BP Systolic Sitting 110 mmHg BP Diastolic Sitting 72 mmHg Respiratory Rate 14 /min Body Temperature 98.1 F BMI (Body Mass Index) 20.5 kg/m2 04/23/2014 11:06am Height 72 inches 6'0" Weight 156.00 lb Heart Rate 84 /min BP Systolic Sitting 122 mmHg BP Diastolic Sitting 70 mmHg Respiratory Rate 14 /min Body Temperature 97.3 F BMI (Body Mass Index) 21.2 kg/m2 10/22/2013 2:11pm Height 72 inches 6'0" Weight 151.00 lb Heart Rate 94 /min BP Systolic Sitting 118 mmHg BP Diastolic Sitting 64 mmHg Body Temperature 98.0 F BMI (Body Mass Index) 20.5 kg/m2 Results Test Date Facility Test Result H/L Range Note Laboratory test [facility] PSA Screening 3.403 ng/mL N 0-4.000 1 finding [address] [place] [address] [phone] HIV-1 Rna QNT [facility] HIV-1 Rna Undetected Undetected 2 By PCR Sli [address] (PCR) copies/[place] [address] [phone] Comp Metabolic [facility] Sodium 141 mmol/L N 135- 145 Panel [address] [place] [address] [phone] Potassium 3.8 mmol/L N 3.5-5.0 Chloride 106 mmol/L N 101-111 Co2 Carbon Dioxide 29 mmol/L N 22-32 Anion Gap 6 mmol/L N 2-11 Glucose 106 mg/dL High 70-100 Blood Urea Nitrogen 16 mg/dL N 6-24 Creatinine 0.82 mg/dL N 0.67-1.17 BUN/Creatinine Ratio 19.5 N 8-20 Calcium 10.0 mg/dL N 8.6-10.3 Total Protein 7.6 g/dL N 6.4-8.9 Albumin 3.8 g/dL N 3.2-5.2 Globulin 3.8 g/dL N 2-4 Albumin/Globulin Ratio 1.0 N 1-3 Total Bilirubin 0.20 mg/dL N 0.2-1.0 Alkaline Phosphatase 127 U/L High 34-104 Alt 19 U/L N 7-52 Ast 17 U/L N 13-39 Egfr Non- 94.0 >60 Egfr 113.7 >60 3 Comp Metabolic Panel 07/20/2018 [facility] Sodium 141 mmol/L N 135-[address] [place] [address] [phone] Potassium 3.8 mmol/L N 3.5-5.0 Chloride 106 mmol/L N 101-111 Co2 Carbon Dioxide 29 mmol/L N 22-32 Anion Gap 6 mmol/L N 2-11 Glucose 106 mg/dL High 70-100 Blood Urea Nitrogen 16 mg/dL N 6-24 Creatinine 0.82 mg/dL N 0.67-1.17 BUN/Creatinine Ratio 19.5 N 8-20 Calcium 10.0 mg/dL N 8.6-10.3 Total Protein 7.6 g/dL N 6.4-8.9 Albumin 3.8 g/dL N 3.2-5.2 Globulin 3.8 g/dL N 2-4 Albumin/Globulin Ratio 1.0 N 1-3 Total Bilirubin 0.20 mg/dL N 0.2-1.0 Alkaline Phosphatase 127 U/L High 34-104 Alt 19 U/L N 7-52 Ast 17 U/L N 13-39 Egfr Non- 94.0 >60 Egfr 113.7 >60 4 Laboratory 07/20/2018 [facility] PSA Screening 3.403 ng/mL N 0 -4.000 5 test finding [address] [place] [address] [phone] HIV-1 Rna QNT 07/20/2018 [facility] HIV-1 Rna Undetected Undetected 6 By PCR Sli [address] (PCR) copies/[place] [address] [phone] Laboratory 04/06/2018 [facility] Cytology SEE RESULT 7 test finding [address] [facility] [place] [address] [phone] Comp Metabolic 01/10/2018 [facility] Sodium 143 mmol/L N 135- [address] [place] [address] [phone] Potassium 4.0 mmol/L N 3.5-5.0 Chloride 109 mmol/L N 101-111 Co2 Carbon Dioxide 28 mmol/L N 22-32 Anion Gap 6 mmol/L N 2-11 Glucose 118 mg/dL High 70-100 Blood Urea Nitrogen 14 mg/dL N 6-24 Creatinine 1.01 mg/dL N 0.67-1.17 BUN/Creatinine Ratio 13.9 N 8-20 Calcium 9.8 mg/dL N 8.6-10.3 Total Protein 7.3 g/dL N 6.4-8.9 Albumin 4.4 g/dL N 3.2-5.2 Globulin 2.9 g/dL N 2-4 Albumin/Globulin Ratio 1.5 N 1-3 Total Bilirubin 0.30 mg/dL N 0.2-1.0 Alkaline Phosphatase 78 U/L N 34-104 Alt 33 U/L N 7-52 Ast 24 U/L N 13-39 Egfr Non- 73.9 >60 Egfr 89.4 >60 8 CBC Auto Diff 01/10/2018 [facility] White Blood 4.9 10^3/uL N 3.5-10.[address] [place] [address] [phone] Red Blood Count 4.78 10^6/uL N 4.00-5.40 Hemoglobin 14.2 g/dL N 14.0-18.0 Hematocrit 43 % N 42-52 Mean Corpuscular Volume 89 fL N 80-94 Mean Corpuscular Hemoglobin 30 pg N 27-31 Mean Corpuscular HGB Conc 33 g/dL N 31-36 Red Cell Distribution Width 14 % N 10.5-15 Platelet Count 211 10^3/uL N 150-450 Mean Platelet Volume 8.0 um3 N 7.4-10.4 Abs Neutrophils 2.2 10^3/uL N 1.5-7.7 Abs Lymphocytes 2.2 10^3/uL N 1.0-4.8 Abs Monocytes 0.3 10^3/uL N 0-0.8 Abs Eosinophils 0.1 10^3/uL N 0-0.6 Abs Basophils 0 10^3/uL N 0-0.2 Abs Nucleated RBC 0 10^3/uL Granulocyte % 44.9 % N 38-83 Lymphocyte % 45.3 % N 25-47 Monocyte % 6.6 % N 0-7 Eosinophil % 2.7 % N 0-6 Basophil % 0.5 % N 0-2 Nucleated Red Blood Cells % 0.2 CD4/CD8 01/10/2018 [facility] Absolute CD45 2.07 thou/mcL 0.82-2.84 T-Cell Count [address] [address] [phone] % CD3 92 % Abnormal 58-86 % CD4 39 % 32-64 % CD8 55 % Abnormal 8-40 CD3 1901 cells/L 550-2202 CD4 810 cells/L 365-1437 CD8 1145 cells/L Abnormal 80-846 H/S Ratio 0.7 Abnormal >=0.9 CD4 Reviewed By See Comment 9 HIV-1 Rna 01/10/2018 [facility] HIV-1 Rna Undetected Undetected 10 QNT By PCR [address] (PCR) copies/[place] [address] [phone] CBC Auto 09/23/2017 [facility] White Blood 5.9 10^3/uL N 3.5- 10.[address] Count [place], [place] [address] [phone] Red Blood Count 4.70 10^6/uL N 4.0-5.4 Hemoglobin 13.7 g/dL Low 14.0-18.0 Hematocrit 42 % N 42-52 Mean Corpuscular Volume 88 fL N 80-94 Mean Corpuscular Hemoglobin 29 pg N 27-31 Mean Corpuscular HGB Conc 33 g/dL N 31-36 Red Cell Distribution Width 14 % N 10.5-15 Platelet Count 205 10^3/uL N 150-450 Mean Platelet Volume 8.1 um3 N 7.4-10.4 Abs Neutrophils 2.1 10^3/uL N 1.5-7.7 Abs Lymphocytes 3.0 10^3/uL N 1.0-4.8 Abs Monocytes 0.5 10^3/uL N 0-0.8 Abs Eosinophils 0.2 10^3/uL N 0-0.6 Abs Basophils 0.1 10^3/uL N 0-0.2 Abs Nucleated RBC 0 10^3/uL Granulocyte % 35.7 % Low 38-83 Lymphocyte % 51.2 % High 25-47 Monocyte % 8.5 % High 0-7 Eosinophil % 3.7 % N 0-6 Basophil % 0.9 % N 0-2 Nucleated Red Blood Cells % 0 Comp Metabolic Panel 09/23/2017 [facility] Sodium 141 mmol/L N 139-[address] [place] [address] [phone] Potassium 4.1 mmol/L N 3.5-5.0 Chloride 110 mmol/L N 101-111 Co2 Carbon Dioxide 25 mmol/L N 22-32 Anion Gap 6 mmol/L N 2-11 Glucose 111 mg/dL High 70-100 Blood Urea Nitrogen 14 mg/dL N 6-24 Creatinine 0.88 mg/dL N 0.67-1.17 BUN/Creatinine Ratio 15.9 N 8-20 Calcium 9.4 mg/dL N 8.6-10.3 Total Protein 7.0 g/dL N 6.4-8.9 Albumin 4.2 g/dL N 3.2-5.2 Globulin 2.8 g/dL N 2-4 Albumin/Globulin Ratio 1.5 N 1-3 Total Bilirubin 0.30 mg/dL N 0.2-1.0 Alkaline Phosphatase 86 U/L N 34-104 Alt 26 U/L N 7-52 Ast 22 U/L N 13-39 Egfr Non- 86.9 >60 Egfr 111.8 >60 11 HIV-1 Rna 09/23/2017 [facility] HIV-1 Rna (PCR) Undetected Undetected 12 QNT By PCR [address] copies/[place] [address] [phone] Lipid 09/23/2017 [facility] Triglycerides 179 mg/dL [address] (Trig/Chol/ [place] [address] HDL) [phone] Cholesterol 178 mg/dL 14 HDL Cholesterol 56.3 mg/dL 15 LDL Cholesterol 86 mg/dL 16 Laboratory test 09/23/2017 [facility] Creatine 160 U/L N 10- [address] Kinase(CK) [place] [address] [phone] TSH (Thyroid Stim Horm) 0.62 mcIU/mL N 0.34-5.60 CBC Auto Diff 05/25/2017 [facility] White Blood 6.8 10^3/uL N 3.5-10.[address] [address] [phone] Red Blood Count 4.87 10^6/uL N 4.0-5.4 Hemoglobin 13.9 g/dL Low 14.0-18.0 Hematocrit 43 % N 42-52 Mean Corpuscular Volume 88 fL N 80-94 Mean Corpuscular Hemoglobin 29 pg N 27-31 Mean Corpuscular HGB Conc 33 g/dL N 31-36 Red Cell Distribution Width 14 % N 10.5-15 Platelet Count 244 10^3/uL N 150-450 Mean Platelet Volume 8 um3 N 7.4-10.4 Abs Neutrophils 2.8 10^3/uL N 1.5-7.7 Abs Lymphocytes 3.1 10^3/uL N 1.0-4.8 Abs Monocytes 0.6 10^3/uL N 0-0.8 Abs Eosinophils 0.2 10^3/uL N 0-0.6 Abs Basophils 0.1 10^3/uL N 0-0.2 Abs Nucleated RBC 0 10^3/uL Granulocyte % 41.0 % N 38-83 Lymphocyte % 45.9 % N 25-47 Monocyte % 9.2 % High 1-9 Eosinophil % 2.7 % N 0-6 Basophil % 1.2 % N 0-2 Nucleated Red Blood Cells % 0 Comp Metabolic Panel 05/25/2017 [facility] Sodium 138 mmol/L N 133-[address] [place] [address] [phone] Potassium 3.6 mmol/L N 3.5-5.0 Chloride 105 mmol/L N 101-111 Co2 Carbon Dioxide 27 mmol/L N 22-32 Anion Gap 6 mmol/L N 2-11 Glucose 114 mg/dL High 70-100 Blood Urea Nitrogen 11 mg/dL N 6-24 Creatinine 0.83 mg/dL N 0.67-1.17 BUN/Creatinine Ratio 13.3 N 8-20 Calcium 10.3 mg/dL N 8.6-10.3 Total Protein 7.2 g/dL N 6.4-8.9 Albumin 4.2 g/dL N 3.2-5.2 Globulin 3.0 g/dL N 2-4 Albumin/Globulin Ratio 1.4 N 1-3 Total Bilirubin 0.30 mg/dL N 0.2-1.0 Alkaline Phosphatase 90 U/L N 34-104 Alt 21 U/L N 7-52 Ast 19 U/L N 13-39 Egfr Non- 93.0 >60 Egfr 119.6 >60 17 HIV-1 Rna 05/25/2017 [facility] HIV-1 Rna <20 copies/mL Undetected 18 QNT By PCR [address] (PCR) [place] [address] [phone] CD4/CD8 05/25/2017 [facility] Absolute CD45 2.72 thou/mcL 0.82-2.84 T-Cell [address] [place] [place] [address] [phone] % CD3 92 % Abnormal 58-86 % CD4 37 % 32-64 % CD8 59 % Abnormal 8-40 CD3 2499 cells/L Abnormal 550-2202 CD4 1009 cells/L 365-1437 CD8 1591 cells/L Abnormal 80-846 H/S Ratio 0.6 Abnormal >=0.9 CD4 Reviewed By See Comment 19 CBC Auto Diff 01/10/2017 [facility] White Blood 6.8 10^3/uL N 3.5-10.[address] [address] [phone] Red Blood Count 4.73 10^6/uL N 4.0-5.4 Hemoglobin 14.1 g/dL N 14.0-18.0 Hematocrit 42 % N 42-52 Mean Corpuscular Volume 90 fL N 80-94 Mean Corpuscular Hemoglobin 30 pg N 27-31 Mean Corpuscular HGB Conc 33 g/dL N 31-36 Red Cell Distribution Width 15 % N 10.5-15 Platelet Count 178 10^3/uL N 150-450 Mean Platelet Volume 8 um3 N 7.4-10.4 Abs Neutrophils 3.3 10^3/uL N 1.5-7.7 Abs Lymphocytes 2.8 10^3/uL N 1.0-4.8 Abs Monocytes 0.5 10^3/uL N 0-0.8 Abs Eosinophils 0.2 10^3/uL N 0-0.6 Abs Basophils 0.1 10^3/uL N 0-0.2 Abs Nucleated RBC 0.01 10^3/uL N Granulocyte % 48.4 % N 38-83 Lymphocyte % 41.3 % N 25-47 Monocyte % 6.7 % N 1-9 Eosinophil % 2.7 % N 0-6 Basophil % 0.9 % N 0-2 Nucleated Red Blood Cells % 0.1 N Comp Metabolic Panel 01/10/2017 [facility] Sodium 136 mmol/L N 133-[address] [place] [address] [phone] Potassium 3.8 mmol/L N 3.5-5.0 Chloride 105 mmol/L N 101-111 Co2 Carbon Dioxide 28 mmol/L N 22-32 Anion Gap 3 mmol/L N 2-11 Glucose 142 mg/dL High 70-100 Blood Urea Nitrogen 15 mg/dL N 6-24 Creatinine 0.95 mg/dL N 0.67-1.17 BUN/Creatinine Ratio 15.8 N 8-20 Calcium 9.6 mg/dL N 8.6-10.3 Total Protein 6.7 g/dL N 6.4-8.9 Albumin 4.0 g/dL N 3.2-5.2 Globulin 2.7 g/dL N 2-4 Albumin/Globulin Ratio 1.5 N 1-3 Total Bilirubin 0.30 mg/dL N 0.2-1.0 Alkaline Phosphatase 84 U/L N 34-104 Alt 21 U/L N 7-52 Ast 22 U/L N 13-39 Egfr Non- 79.6 N >60 Egfr 102.3 N >60 20 HIV-1 Rna 01/10/2017 [facility] HIV-1 Rna Undetected N Undetected 21 QNT By PCR [address] (PCR) copies/[place] [address] [phone] CD4/CD8 01/10/2017 [facility] Absolute CD45 2.62 thou/mcL N 0.82-2.84 T-Cell [address] [place] [place] [address] [phone] % CD3 92 % Abnormal 58-86 % CD4 38 % N 32-64 % CD8 56 % Abnormal 8-40 CD3 2399 cells/L Abnormal 550-2202 CD4 984 cells/L N 365-1437 CD8 1466 cells/L Abnormal 80-846 H/S Ratio 0.7 Abnormal >=0.9 CD4 Reviewed By See Comment N 22 HIV-1 Rna 01/10/2017 [facility] HIV-1 Rna Undetected N Undetected 23 QNT By PCR [address] (PCR) copies/[place] [address] [phone] CD4/CD8 01/10/2017 [facility] Absolute CD45 2.62 thou/mcL N 0.82-2.84 T-Cell [address] [place] [address] [phone] % CD3 92 % Abnormal 58-86 % CD4 38 % N 32-64 % CD8 56 % Abnormal 8-40 CD3 2399 cells/L Abnormal 550-2202 CD4 984 cells/L N 365-1437 CD8 1466 cells/L Abnormal 80-846 H/S Ratio 0.7 Abnormal >=0.9 CD4 Reviewed By See Comment N 24 CBC Auto Diff 01/10/2017 [facility] White Blood 6.8 10^3/uL N 3.5-10.[address] [address] [phone] Red Blood Count 4.73 10^6/uL N 4.0-5.4 Hemoglobin 14.1 g/dL N 14.0-18.0 Hematocrit 42 % N 42-52 Mean Corpuscular Volume 90 fL N 80-94 Mean Corpuscular Hemoglobin 30 pg N 27-31 Mean Corpuscular HGB Conc 33 g/dL N 31-36 Red Cell Distribution Width 15 % N 10.5-15 Platelet Count 178 10^3/uL N 150-450 Mean Platelet Volume 8 um3 N 7.4-10.4 Abs Neutrophils 3.3 10^3/uL N 1.5-7.7 Abs Lymphocytes 2.8 10^3/uL N 1.0-4.8 Abs Monocytes 0.5 10^3/uL N 0-0.8 Abs Eosinophils 0.2 10^3/uL N 0-0.6 Abs Basophils 0.1 10^3/uL N 0-0.2 Abs Nucleated RBC 0.01 10^3/uL N Granulocyte % 48.4 % N 38-83 Lymphocyte % 41.3 % N 25-47 Monocyte % 6.7 % N 1-9 Eosinophil % 2.7 % N 0-6 Basophil % 0.9 % N 0-2 Nucleated Red Blood Cells % 0.1 N Comp Metabolic Panel 01/10/2017 [facility] Sodium 136 mmol/L N 133-[address] [place] [address] [phone] Potassium 3.8 mmol/L N 3.5-5.0 Chloride 105 mmol/L N 101-111 Co2 Carbon Dioxide 28 mmol/L N 22-32 Anion Gap 3 mmol/L N 2-11 Glucose 142 mg/dL High 70-100 Blood Urea Nitrogen 15 mg/dL N 6-24 Creatinine 0.95 mg/dL N 0.67-1.17 BUN/Creatinine Ratio 15.8 N 8-20 Calcium 9.6 mg/dL N 8.6-10.3 Total Protein 6.7 g/dL N 6.4-8.9 Albumin 4.0 g/dL N 3.2-5.2 Globulin 2.7 g/dL N 2-4 Albumin/Globulin Ratio 1.5 N 1-3 Total Bilirubin 0.30 mg/dL N 0.2-1.0 Alkaline Phosphatase 84 U/L N 34-104 Alt 21 U/L N 7-52 Ast 22 U/L N 13-39 Egfr Non- 79.6 N >60 Egfr 102.3 N >60 25 HIV-1 Rna QNT 08/24/2016 [facility] HIV-1 Rna Undetected N Undetected 26 By PCR Sli [address] (PCR) copies/[place] [address] [phone] HIV-1 Rna QNT 06/22/2016 [facility] HIV-1 Rna Undetected N Undetected 27 By PCR Sli [address] (PCR) copies/[place] [address] [phone] Comp Metabolic 06/22/2016 [facility] Sodium 139 mmol/L N 133- [address] [place] [address] [phone] Potassium 4.2 mmol/L N 3.5-5.0 Chloride 105 mmol/L N 101-111 Co2 Carbon Dioxide 30 mmol/L N 22-32 Anion Gap 4 mmol/L N 2-11 Glucose 119 mg/dL High 70-100 Blood Urea Nitrogen 15 mg/dL N 6-24 Creatinine 1.07 mg/dL N 0.67-1.17 BUN/Creatinine Ratio 14.0 N 8-20 Calcium 10.1 mg/dL N 8.6-10.3 Total Protein 7.1 g/dL N 6.4-8.9 Albumin 4.1 g/dL N 3.2-5.2 Globulin 3.0 g/dL N 2-4 Albumin/Globulin Ratio 1.4 N 1-3 Total Bilirubin 0.40 mg/dL N 0.2-1.0 Alkaline Phosphatase 81 U/L N 34-104 Alt 15 U/L N 7-52 Ast 16 U/L N 13-39 Egfr Non- 69.6 N >60 Egfr 89.5 N >60 28 CBC Auto Diff 06/22/2016 [facility] White Blood 7.2 10^3/uL N 3.5-10.[address] [place] [address] [phone] Red Blood Count 5.04 10^6/uL N 4.0-5.4 Hemoglobin 14.6 g/dL N 14.0-18.0 Hematocrit 45 % N 42-52 Mean Corpuscular Volume 89 fL N 80-94 Mean Corpuscular Hemoglobin 29 pg N 27-31 Mean Corpuscular HGB Conc 33 g/dL N 31-36 Red Cell Distribution Width 14 % N 10.5-15 Platelet Count 214 10^3/uL N 150-450 Mean Platelet Volume 9 um3 N 7.4-10.4 Abs Neutrophils 3.0 10^3/uL N 1.5-7.7 Abs Lymphocytes 3.0 10^3/uL N 1.0-4.8 Abs Monocytes 1.0 10^3/uL High 0-0.8 Abs Eosinophils 0.2 10^3/uL N 0-0.6 Abs Basophils 0.1 10^3/uL N 0-0.2 Abs Nucleated RBC 0.01 10^3/uL N Granulocyte % 41.2 % N 38-83 Lymphocyte % 41.3 % N 25-47 Monocyte % 14.0 % High 1-9 Eosinophil % 2.7 % N 0-6 Basophil % 0.8 % N 0-2 Nucleated Red Blood Cells % 0.1 N HIV-1 Rna QNT 03/11/2016 [facility] HIV-1 Rna Undetected N Undetected 29 By PCR Sli [address] (PCR) copies/[place] [address] [phone] Hla-B 5701 02/02/2016 [facility] Hla-B 5701 Negative N Genotype [address] [place] [address] [phone] Hla-B 5701 Interpretation See Comment N 30 Hla-B 5701 Reviewed By See Comment N 31 Laboratory test 01/19/2016 [facility] TSH (Thyroid 0.59 mcIU/mL N 0.34-5.[address] Stim Horm) [place] [address] [phone] CBC Auto Diff 01/19/2016 [facility] White Blood 7.9 10^3/uL N 3.5-10.[address] [place] [place] [address] [phone] Red Blood Count 4.81 10^6/uL N 4.0-5.4 Hemoglobin 14.0 g/dL N 14.0-18.0 Hematocrit 43 % N 42-52 Mean Corpuscular Volume 89 fL N 80-94 Mean Corpuscular Hemoglobin 29 pg N 27-31 Mean Corpuscular HGB Conc 33 g/dL N 31-36 Red Cell Distribution Width 14 % N 10.5-15 Platelet Count 220 10^3/uL N 150-450 Mean Platelet Volume 9 um3 N 7.4-10.4 Abs Neutrophils 4.1 10^3/uL N 1.5-7.7 Abs Lymphocytes 3.0 10^3/uL N 1.0-4.8 Abs Monocytes 0.6 10^3/uL N 0-0.8 Abs Eosinophils 0.1 10^3/uL N 0-0.6 Abs Basophils 0.1 10^3/uL N 0-0.2 Abs Nucleated RBC 0.01 10^3/uL N Granulocyte % 52.1 % N 38-83 Lymphocyte % 37.8 % N 25-47 Monocyte % 8.2 % N 1-9 Eosinophil % 1.2 % N 0-6 Basophil % 0.7 % N 0-2 Nucleated Red Blood Cells % 0.1 N Comp Metabolic Panel 01/19/2016 [facility] Sodium 139 mmol/L N 133-[address] [place] [address] [phone] Potassium 4.0 mmol/L N 3.5-5.0 Chloride 106 mmol/L N 101-111 Co2 Carbon Dioxide 28 mmol/L N 22-32 Anion Gap 5 mmol/L N 2-11 Glucose 92 mg/dL N 70-100 Blood Urea Nitrogen 18 mg/dL N 6-24 Creatinine 0.95 mg/dL N 0.67-1.17 BUN/Creatinine Ratio 18.9 N 8-20 Calcium 9.5 mg/dL N 8.6-10.3 Total Protein 6.8 g/dL N 6.4-8.9 Albumin 3.9 g/dL N 3.2-5.2 Globulin 2.9 g/dL N 2-4 Albumin/Globulin Ratio 1.3 N 1-3 Total Bilirubin 0.30 mg/dL N 0.2-1.0 Alkaline Phosphatase 90 U/L N 34-104 Alt 17 U/L N 7-52 Ast 20 U/L N 13-39 Egfr Non- 79.8 N >60 Egfr 102.6 N >60 32 HIV-1 Rna 01/19/2016 [facility] HIV-1 Rna <20 copies/mL N Undetected 33 QNT By PCR [address] (PCR) [place] [address] [phone] CD4/CD8 01/19/2016 [facility] Absolute CD45 2.69 thou/mcL N 0.82-2.84 T-Cell [address] [place] [place] [address] [phone] % CD3 93 % Abnormal 58-86 % CD4 38 % N 32-64 % CD8 57 % Abnormal 8-40 CD3 2496 cells/L Abnormal 550-2202 CD4 1027 cells/L N 365-1437 CD8 1542 cells/L Abnormal 80-846 H/S Ratio 0.7 Abnormal >=0.9 CD4 Reviewed By See Comment N 34 Laboratory test 01/19/2016 [facility] PSA Screening 1.655 ng/mL N 0-4.000 [address] [place] [address] [phone] Laboratory test 01/19/2016 [facility] Free T4 (Free 0.72 ng/dL N 0.61-1.[address] Thyroxine) [place] [address] [phone] Urinalysis 01/19/2016 [facility] Urine Color Yellow N Profile [address] [place] [address] [phone] Urine Appearance Cloudy N Urine Specific [place] 1.010 N 1.010-1.030 Urine pH 7.0 N 5-9 Urine Urobilinogen Negative N Negative Urine Ketones Negative N Negative Urine Protein Negative N Negative Urine Leukocytes Negative N Negative Urine Blood Negative N Negative Urine Nitrite Negative N Negative Urine Bilirubin Negative N Negative Urine Glucose Negative N Negative CBC Auto Diff 04/21/2015 [facility] White Blood 6.6 10^3/uL N 4.8-10.[address] [place] [place] [address] [phone] Red Blood Count 4.92 10^6/uL N 4.0-5.4 Hemoglobin 14.3 g/dL N 14.0-18.0 Hematocrit 45 % N 42-52 Mean Corpuscular Volume 91 fL N 80-94 Mean Corpuscular Hemoglobin 29 pg N 27-31 Mean Corpuscular HGB Conc 32 g/dL N 31-36 Red Cell Distribution Width 14 % N 10.5-15 Platelet Count 227 10^3/uL N 150-450 Mean Platelet Volume 8 um3 N 7.4-10.4 Abs Neutrophils 3.0 10^3/uL N 1.5-7.7 Abs Lymphocytes 2.9 10^3/uL N 1.0-4.8 Abs Monocytes 0.5 10^3/uL N 0-0.8 Abs Eosinophils 0.1 10^3/uL N 0-0.6 Abs Basophils 0.1 10^3/uL N 0-0.2 Abs Nucleated RBC 0.01 10^3/uL N Granulocyte % 45.0 % N 38-83 Lymphocyte % 44.3 % N 25-47 Monocyte % 8.0 % N 1-9 Eosinophil % 1.5 % N 0-6 Basophil % 1.2 % N 0-2 Nucleated Red Blood Cells % 0.1 N CD4/CD8 04/21/2015 [facility] Absolute 2.93 Abnormal 0.82- 2.84 T-Cell [address] CD45 Count thou/mcL Count [place], [place] [id number] [phone] % CD3 92 % Abnormal 58-86 % CD4 39 % N 32-64 % CD8 54 % Abnormal 8-40 CD3 2690 cells/L Abnormal 550-2202 CD4 1147 cells/L N 365-1437 CD8 1585 cells/L Abnormal 80-846 H/S Ratio 0.7 Abnormal >=0.9 CD4 Reviewed By See Comment N 36 Comp Metabolic Panel 04/21/2015 [facility] Sodium 142 mmol/L N 133-[address] [place] [address] [phone] Potassium 4.3 mmol/L N 3.5-5.0 Chloride 109 mmol/L N 101-111 Co2 Carbon Dioxide 28 mmol/L N 22-32 Anion Gap 5 mmol/L N 2-11 Glucose 103 mg/dL High 70-100 Blood Urea Nitrogen 19 mg/dL N 6-24 Creatinine 0.94 mg/dL N 0.67-1.17 BUN/Creatinine Ratio 20.2 High 8-20 Calcium 9.4 mg/dL N 8.6-10.3 Total Protein 6.8 g/dL N 6.4-8.9 Albumin 4.3 g/dL N 3.2-5.2 Globulin 2.5 g/dL N 2-4 Albumin/Globulin Ratio 1.7 N 1-3 Total Bilirubin 0.20 mg/dL N 0.2-1.0 Alkaline Phosphatase 112 U/L High 34-104 Alt 18 U/L N 7-52 Ast 17 U/L N 13-39 Egfr Non- 81.1 N >60 Egfr 104.2 N >60 37 Laboratory test 04/21/2015 [facility] HIV-1 Rna Undetected N Undetected [address] (PCR) copies/[place] [address] [phone] PSA Screening 0.882 ng/mL N 0-4.000 39 Lipid Profile 04/21/2015 [facility] Triglycerides 173 mg/dL N 40 (Trig/Chol/HDL) [address] [place], [place] [address] [phone] Cholesterol 179 mg/dL N 41 HDL Cholesterol 48.9 mg/dL N 42 LDL Cholesterol 96 mg/dL N 43 Laboratory 04/21/2015 [facility] Vitamin D 29.0 ng/mL Low 30- 50 test finding [address] [place] [address] 25(Oh) [phone] Laboratory 10/15/2014 [facility] HIV-1 Rna Undetected N Undetected 44 test finding [address] QNT By PCR copies/[place] [address] Sli [phone] CBC Auto Diff 10/10/2014 [facility] White Blood 5.8 10^3/uL N 4.8-10.[address] [place] [address] [phone] Red Blood Count 5.00 10^6/uL N 4.0-5.4 Hemoglobin 14.4 g/dL N 14.0-18.0 Hematocrit 46 % N 42-52 Mean Corpuscular Volume 91 fL N 80-94 Mean Corpuscular Hemoglobin 29 pg N 27-31 Mean Corpuscular HGB Conc 32 g/dL N 31-36 Red Cell Distribution Width 14 % N 10.5-15 Platelet Count 242 10^3/uL N 150-450 Mean Platelet Volume 8 um3 N 7.4-10.4 Abs Neutrophils 2.4 10^3/uL N 1.5-7.7 Abs Lymphocytes 2.8 10^3/uL N 1.0-4.8 Abs Monocytes 0.4 10^3/uL N 0-0.8 Abs Eosinophils 0.1 10^3/uL N 0-0.6 Abs Basophils 0.1 10^3/uL N 0-0.2 Abs Nucleated RBC 0 10^3/uL N Granulocyte % 40.8 % N 38-83 Lymphocyte % 48.4 % High 25-47 Monocyte % 7.5 % N 1-9 Eosinophil % 1.9 % N 0-6 Basophil % 1.4 % N 0-2 Nucleated Red Blood Cells % 0 N Comp Metabolic Panel 10/10/2014 [facility] Sodium 141 mmol/L N 133-[address] [place] [address] [phone] Potassium 4.6 mmol/L N 3.5-5.0 Chloride 109 mmol/L N 101-111 Co2 Carbon Dioxide 28 mmol/L N 22-32 Anion Gap 4 mmol/L N 2-11 Glucose 95 mg/dL N 70-100 Blood Urea Nitrogen 18 mg/dL N 6-24 Creatinine 0.85 mg/dL N 0.67-1.17 BUN/Creatinine Ratio 21.2 High 8-20 Calcium 9.6 mg/dL N 8.6-10.3 Total Protein 7.0 g/dL N 6.4-8.9 Albumin 4.3 g/dL N 3.2-5.2 Globulin 2.7 g/dL N 2-4 Albumin/Globulin Ratio 1.6 N 1-3 Total Bilirubin 0.30 mg/dL N 0.2-1.0 Alkaline Phosphatase 107 U/L High 34-104 Alt 18 U/L N 7-52 Ast 17 U/L N 13-39 Egfr Non- 91.3 N >60 Egfr 117.5 N >60 45 Manual Differential 10/10/2014 [facility] Neutrophil % 32 % Low 38-[address] [place] [address] [phone] Lymphocytes % 50 % High 25-47 Monocytes % 4 % N 0-13 Eosinophils % 1 % N 0-6 Basophil % 2 % N 0-2 Reactive Lymph % 11 % High 0-6 RBC Morphology Normal N Normal CBC Auto Diff 04/23/2014 White Blood Count 6.3 10^3/uL N 4.8-10.8 Red Blood Count 4.97 10^6/uL N 4.0-5.4 Hemoglobin 14.5 g/dL N 14.0-18.0 Hematocrit 45 % N 42-52 Mean Corpuscular Volume 90 fL N 80-94 Mean Corpuscular Hemoglobin 29 pg N 27-31 Mean Corpuscular HGB Conc 33 g/dL N 31-36 Red Cell Distribution Width 14 % N 10.5-15 Platelet Count 227 10^3/uL N 150-450 Mean Platelet Volume 8 um3 N 7.4-10.4 Abs Neutrophils 2.8 10^3/uL N 1.5-7.7 Abs Lymphocytes 2.8 10^3/uL N 1.0-4.8 Abs Monocytes 0.6 10^3/uL N 0-0.8 Abs Eosinophils 0.1 10^3/uL N 0-0.6 Abs Basophils 0.1 10^3/uL N 0-0.2 Abs Nucleated RBC 0 10^3/uL N Granulocyte % 44.0 % N 38-83 Lymphocyte % 43.9 % N 25-47 Monocyte % 8.9 % N 1-9 Eosinophil % 2.3 % N 0-6 Basophil % 0.9 % N 0-2 Nucleated Red Blood Cells % 0.1 N CD4/CD8 T-Cell Count 04/23/2014 Absolute CD45 Count 2.32 thou/mcL N 0.82 -2.84 % CD3 92 % Abnormal 58-86 % CD4 40 % N 32-64 % CD8 54 % Abnormal 8-40 CD3 2149 cells/L N 550-2202 CD4 928 cells/L N 365-1437 CD8 1266 cells/L Abnormal 80-846 H/S Ratio 0.7 Abnormal >=0.9 CD4 Reviewed By See Comment N 46 Laboratory test finding 04/23/2014 PSA Screening 0.920 ng/mL N 0-4.000 47 HIV-1 Rna QNT By PCR Sli 04/23/2014 HIV-1 Rna (PCR) 48 copies/mL N Undetected 48 Comp Metabolic Panel 04/23/2014 Sodium 140 mmol/L N 133-145 Potassium 4.1 mmol/L N 3.5-5.0 49 Chloride 109 mmol/L N 101-111 Co2 Carbon Dioxide 26 mmol/L N 22-32 Anion Gap 5 mmol/L N 2-11 Glucose 119 mg/dL High 70-100 Blood Urea Nitrogen 17 mg/dL N 6-24 Creatinine 0.93 mg/dL N 0.67-1.17 BUN/Creatinine Ratio 18.3 N 8-20 Calcium 9.2 mg/dL N 8.6-10.3 Total Protein 6.9 g/dL N 6.4-8.9 Albumin 4.0 g/dL N 3.2-5.2 Globulin 2.9 g/dL N 2-4 Albumin/Globulin Ratio 1.4 N 1-3 Total Bilirubin 0.20 mg/dL N 0.2-1.0 Alkaline Phosphatase 109 U/L High 34-104 Alt 22 U/L N 7-52 Ast 18 U/L N 13-39 Egfr Non- 82.3 N >60 Egfr 105.9 N >60 50 Quantiferon Gold 11/22/2013 [facility] M tuberculosis Negative N Negative TB [address] [place] [address] [phone] Tuberculosis Antigen Value -0.01 IU/mL N 51 Laboratory 11/22/2013 [facility] Hepatitis C Nonreactive N Nonreactive 52 test finding [address] [place] [address] [phone] Syphilis 11/22/2013 [facility] Syphilis IgG Nonreactive N Nonreactive [address] [place] [address] [phone] RPR TNP N Nonreactive RPR Titer TNP N Pediatric/Maternal NO N HIV-1 Rna 11/22/2013 [facility] HIV-1 Rna 23 copies/mL N Undetected 54 QNT By PCR 101 (PCR) [place] [address] [phone] CD4/CD8 11/22/2013 [facility] Absolute CD45 2.72 thou/mcL N 0.82-2.84 T-Cell 101 [place] [address] [phone] % CD3 93 % Abnormal 58-86 % CD4 34 % N 32-64 % CD8 60 % Abnormal 8-40 CD3 2520 cells/L Abnormal 550-2202 CD4 925 cells/L N 365-1437 CD8 1623 cells/L Abnormal 80-846 H/S Ratio 0.6 Abnormal >=0.9 CD4 Reviewed By See Comment N 55 Comp Metabolic Panel 11/22/2013 [facility] Sodium 139 mmol/L N 133-[address] [place] [address] [phone] Potassium 3.8 mmol/L N 3.7-5.6 Chloride 109 mmol/L N 101-111 Co2 Carbon Dioxide 24 mmol/L N 22-32 Anion Gap 6 mmol/L N 2-11 Glucose 117 mg/dL High 70-100 Blood Urea Nitrogen 16 mg/dL N 6-24 Creatinine 0.92 mg/dL N 0.67-1.17 BUN/Creatinine Ratio 17.4 N 8-20 Calcium 9.1 mg/dL N 8.6-10.3 56 Total Protein 7.0 g/dL N 6.4-8.9 Albumin 4.1 g/dL N 3.2-5.2 Globulin 2.9 g/dL N 2-4 Albumin/Globulin Ratio 1.4 N 1-3 Total Bilirubin 0.30 mg/dL N 0.2-1.0 Alkaline Phosphatase 109 U/L High 34-104 Alt 16 U/L N 7-52 Ast 19 U/L N 13-39 Egfr Non- 83.6 N >60 Egfr 107.6 N >60 57 CBC Auto Diff 11/22/2013 [facility] White Blood 7.5 10^3/uL N 4.8-10.[address] [place] [address] [phone] Red Blood Count 4.70 10^6/uL N 4.0-5.4 Hemoglobin 14.1 g/dL N 14.0-18.0 Hematocrit 41 % Low 42-52 Mean Corpuscular Volume 88 fL N 80-94 Mean Corpuscular Hemoglobin 30 pg N 27-31 Mean Corpuscular HGB Conc 34 g/dL N 31-36 Red Cell Distribution Width 14 % N 10.5-15 Platelet Count 239 10^3/uL N 150-450 Mean Platelet Volume 8 um3 N 7.4-10.4 Abs Neutrophils 3.6 10^3/uL N 1.5-7.7 Abs Lymphocytes 3.1 10^3/uL N 1.0-4.8 Abs Monocytes 0.5 10^3/uL N 0-0.8 Abs Eosinophils 0.2 10^3/uL N 0-0.6 Abs Basophils 0.1 10^3/uL N 0-0.2 Abs Nucleated RBC 0.01 10^3/uL N Granulocyte % 48.1 % N 38-83 Lymphocyte % 41.6 % N 25-47 Monocyte % 6.9 % N 1-9 Eosinophil % 2.6 % N 0-6 Basophil % 0.8 % N 0-2 Nucleated Red Blood Cells % 0.1 N 1 Serum levels of PSA measured using the [employer] DXI Hybritech immunoassay should not be interpreted as absolute evidence of the presence or absence of disease. The PSA value should be used in conjunction with other pertinent clinical diagnostic procedures. The values obtained with different assay methods or kits cannot be used interchangeably. 2 Result in log copies/mL is Undetected. ADDITIONAL INFORMATION The quantification range of this assay is 20 to 10,000,000 copies/mL (1.30 log to 7.00 log copies/mL). Testing was performed using the tk HIV-1 test ([employer] with the tk 6800 System. This test has been modified from the roofer assistant's instructions. Its performance characteristics were determined by [facility] in a manner consistent with CLIA requirements. This test has not been cleared or approved by the U.S. Food and Drug Administration. Test Performed by: [facility] [address] [place] [address] 3 Because ethnic data is not always readily available, this report includes an eGFR for both -Americans and non- Americans. The National Kidney Disease Education Program (NKDEP) does not endorse the use of the MDRD equation for patients that are not between the ages of 18 and 70, are , have extremes of body size, muscle mass, or nutritional status, or are non- or non-. According to the National Kidney Foundation, irrespective of diagnosis, the stage of the disease is based on the level of kidney function: Stage Description GFR(mL/min/1.73 m(2)) 1 Kidney damage with normal or decreased GFR 90 2 Kidney damage with mild decrease in GFR 60-89 3 Moderate decrease in GFR 30-59 4 Severe decrease in GFR 15-29 5 Kidney failure <15 (or dialysis) 4 Because ethnic data is not always readily available, this report includes an eGFR for both -Americans and non- Americans. The National Kidney Disease Education Program (NKDEP) does not endorse the use of the MDRD equation for patients that are not between the ages of 18 and 70, are , have extremes of body size, muscle mass, or nutritional status, or are non- or non-. According to the National Kidney Foundation, irrespective of diagnosis, the stage of the disease is based on the level of kidney function: Stage Description GFR(mL/min/1.73 m(2)) 1 Kidney damage with normal or decreased GFR 90 2 Kidney damage with mild decrease in GFR 60-89 3 Moderate decrease in GFR 30-59 4 Severe decrease in GFR 15-29 5 Kidney failure <15 (or dialysis) 5 Serum levels of PSA measured using the [employer] DXI Hybritech immunoassay should not be interpreted as absolute evidence of the presence or absence of disease. The PSA value should be used in conjunction with other pertinent clinical diagnostic procedures. The values obtained with different assay methods or kits cannot be used interchangeably. 6 Result in log copies/mL is Undetected. ADDITIONAL INFORMATION The quantification range of this assay is 20 to 10,000,000 copies/mL (1.30 log to 7.00 log copies/mL). Testing was performed using the tk HIV-1 test ([employer] with the tk [employer] System. This test has been modified from the roofer assistant's instructions. Its performance characteristics were determined by [facility] in a manner consistent with CLIA requirements. This test has not been cleared or approved by the U.S. Food and Drug Administration. Test Performed by: [facility] [address] [place] [address] 7 SEE RESULT BELOW Name: PANKAJ TORRES : [address]: Omega Garsia MD Acct: [id number] Unit: [id number] AGE: 68 Location: THYROID Re04/06/18 SEX: M Status: REG REF SPEC: [id number] ANNEMARIE: 04/06/18-11[address] [facility] [address]: Omega Garsia MD REQ: [id number] RECD: 04/06/18 STATUS: MARK ELAM DR: Chapin Kyle MD _ ORDERED: FNA-IMG GUID BX/3, CYTO ADEQ-1ST P/3 FINAL DIAGNOSIS 1) Thyroid, right inferior, Ultrasound guided, fine needle aspiration: Benign thyroid nodule, involutional type ([place]se[place] classII). 2) Thyroid, left inferior, Ultrasound guided, fine needle aspiration: Benign thyroid nodule, colloid/hyperplastic (Ramse[place] class II). 3) Thyroid, left inferior, Ultrasound guided, fine needle aspiration: Benign thyroid nodule, colloid/hyperplastic (Ramseur class II). 1) The specimen demonstrates abundant watery proteinaceous fluid, a moderate amount of benign appearing follicular epithelium arranged in uniform sheets, medium sized follicles and only occasional small groups. Abundant pigmented and non-pigmented macrophages are seen in the background. No features of papillary carcinoma are seen. In this clinical setting the risk of malignancy is less than 3%. Clinical management of this thyroid nodule should be based on clinical and radiographic features as well as the above findings. 2) The specimen demonstrates abundant watery colloid, a CONTINUED ON NEXT PAGE DEPARTMENT OF PATHOLOGY, [address] [place] [address] Keith Gerardo M.D. Director [facility] # [id number] RUN DATE: 04/06/18 [facility] LAB LIVE PAGE 2 Patient: BRIANPANKAJ Dixie [id number] (Continued) SPECIMEN COMMENTS (Continued) moderate amount of benign appearing follicular epithelium arranged in uniform sheets, medium sized follicles and only occasional small groups. No features of papillary carcinoma are seen. In this clinical setting the risk of malignancy is less than 3%. Clinical management of this thyroid nodule should be based on clinical and radiographic features as well as the above. 3) The specimen demonstrates moderate watery colloid, a moderate amount of benign appearing follicular epithelium arranged in uniform sheets, medium sized follicles and only occasional small groups. No features of papillary carcinoma are seen. In this clinical setting the risk of malignancy is less than 3%. Clinical management of this thyroid nodule should be based on clinical and radiographic features as well as the above. 1. THYROID RIGHT - US GUIDED FINE NEEDLE ASPIRATION, 2. THYROID LEFT - US GUIDED FINE NEEDLE ASPIRATION, 3. THYROID LEFT - US GUIDED FINE NEEDLE ASPIRATION CLINICAL HISTORY 1) Right nodule inferior-2.7x 1.9x 1.3cm 2) Left nodule inferior-1.8x 1.9x 1.6cm 3) Left nodule inferior-2.0x 1.4x 1.6cm IMMEDIATE INTERPRETATION 1) Pass 1-adequate 2) Pass 1-adequate 3) Pass 1-inadequate, pass 2-adequate GROSS DESCRIPTION 1) 1 - alcohol fixed slide(s) 1 - passes 2) 2 - alcohol fixed slide(s) 1- passes 3) 3 - alcohol fixed slide(s) 2 - passes CONTINUED ON NEXT PAGE DEPARTMENT OF PATHOLOGY, [address] [place] [address] Keith Gerardo M.D. Director [facility] # [id number] RUN DATE: 04/06/18 [facility] LAB LIVE PAGE 3 Patient: PANKAJ TORRES [id number] (Continued) GROSS DESCRIPTION (Continued) Signed by and Reported on: Keith Gerardo MD 1226 END OF REPORT DEPARTMENT OF PATHOLOGY, [address] [place] [address] Keith Gerardo M.D. Director [facility] # [id number] 8 Because ethnic data is not always readily available, this report includes an eGFR for both -Americans and non- Americans. The National Kidney Disease Education Program (NKDEP) does not endorse the use of the MDRD equation for patients that are not between the ages of 18 and 70, are , have extremes of body size, muscle mass, or nutritional status, or are non- or non-. According to the National Kidney Foundation, irrespective of diagnosis, the stage of the disease is based on the level of kidney function: Stage Description GFR(mL/min/1.73 m(2)) 1 Kidney damage with normal or decreased GFR 90 2 Kidney damage with mild decrease in GFR 60-89 3 Moderate decrease in GFR 30-59 4 Severe decrease in GFR 15-29 5 Kidney failure <15 (or dialysis) 9 [facility] recommends samples be tested within 30 hours of collection. This sample exceeds that cut-off. Please consider re-drawing the specimen if clinically indicated. Reviewed by: Peter Catalan M.D. ADDITIONAL INFORMATION Reference values implemented September 12, 2012. This test was developed using an analyte specific reagent. Its performance characteristics were determined by [facility] in a manner consistent with CLIA requirements. This test has not been cleared or approved by the U.S. Food and Drug Administration. Test Performed by: [facility] - [address] [address] 10 Result in log copies/mL is Undetected. ADDITIONAL INFORMATION The quantification range of this assay is 20 to 10,000,000 copies/mL (1.30 log to 7.00 log copies/mL). Testing was performed using the tk HIV-1 test ([employer] with the tk 6800 System. This test has been modified from the roofer assistant's instructions. Its performance characteristics were determined by [facility] in a manner consistent with CLIA requirements. This test has not been cleared or approved by the U.S. Food and Drug Administration. Test Performed by: [facility] [address] [place] [id number] 11 Because ethnic data is not always readily available, this report includes an eGFR for both -Americans and non- Americans. The National Kidney Disease Education Program (NKDEP) does not endorse the use of the MDRD equation for patients that are not between the ages of 18 and 70, are , have extremes of body size, muscle mass, or nutritional status, or are non- or non-. According to the National Kidney Foundation, irrespective of diagnosis, the stage of the disease is based on the level of kidney function: Stage Description GFR(mL/min/1.73 m(2)) 1 Kidney damage with normal or decreased GFR 90 2 Kidney damage with mild decrease in GFR 60-89 3 Moderate decrease in GFR 30-59 4 Severe decrease in GFR 15-29 5 Kidney failure <15 (or dialysis) 12 Result in log copies/mL is Undetected. ADDITIONAL INFORMATION The quantification range of this assay is 20 to 10,000,000 copies/mL (1.30 log to 7.00 log copies/mL). Testing was performed using the tk HIV-1 test ([employer] with the tk [employer] System. This test has been modified from the roofer assistant's instructions. Its performance characteristics were determined by [facility] in a manner consistent with CLIA requirements. This test has not been cleared or approved by the U.S. Food and Drug Administration. Test Performed by: [facility] [address] [place] [address] 13 Desirable: <150 Borderline High: 150-199 High: 200-499 Very High: >500 14 Desirable: <200 Borderline High: 200-239 High: >239 15 Low: <40 Desirable: 40-60 High: >60 16 Desirable: <100 Near Optimal: 100-129 Borderline High: 130-159 High: 160-189 Very High: >189 17 Because ethnic data is not always readily available, this report includes an eGFR for both -Americans and non- Americans. The National Kidney Disease Education Program (NKDEP) does not endorse the use of the MDRD equation for patients that are not between the ages of 18 and 70, are , have extremes of body size, muscle mass, or nutritional status, or are non- or non-. According to the National Kidney Foundation, irrespective of diagnosis, the stage of the disease is based on the level of kidney function: Stage Description GFR(mL/min/1.73 m(2)) 1 Kidney damage with normal or decreased GFR 90 2 Kidney damage with mild decrease in GFR 60-89 3 Moderate decrease in GFR 30-59 4 Severe decrease in GFR 15-29 5 Kidney failure <15 (or dialysis) 18 Result in log copies/mL is <1.30. HIV-1 RNA level detected is <20 copies/mL (<1.30 log copies/mL). This assay cannot accurately quantify HIV-1 RNA below this level. ADDITIONAL INFORMATION The quantification range of this assay is 20 to 10,000,000 copies/mL (1.30 log copies/mL to 7.00 log copies/mL). Testing was performed by the TK AmpliPrep/TK TaqMan HIV-1 Test version 2.0 ([employer] This test has been modified from the roofer assistant's instructions. Its performance characteristics were determined by [facility] in a manner consistent with CLIA requirements. This test has not been cleared or approved by the U.S. Food and Drug Administration. Test Performed by: [facility] - [address] [address] 19 RESULT: Reviewed by: Bhargav Cruz, Ph.D., D([facility]), FAAAAI ADDITIONAL INFORMATION Reference values implemented September 12, 2012. This test was developed using an analyte specific reagent. Its performance characteristics were determined by [facility] in a manner consistent with CLIA requirements. This test has not been cleared or approved by the U.S. Food and Drug Administration. Test Performed by: [facility] - [address] [address] 20 Because ethnic data is not always readily available, this report includes an eGFR for both -Americans and non- Americans. The National Kidney Disease Education Program (NKDEP) does not endorse the use of the MDRD equation for patients that are not between the ages of 18 and 70, are , have extremes of body size, muscle mass, or nutritional status, or are non- or non-. According to the National Kidney Foundation, irrespective of diagnosis, the stage of the disease is based on the level of kidney function: Stage Description GFR(mL/min/1.73 m(2)) 1 Kidney damage with normal or decreased GFR 90 2 Kidney damage with mild decrease in GFR 60-89 3 Moderate decrease in GFR 30-59 4 Severe decrease in GFR 15-29 5 Kidney failure <15 (or dialysis) 21 Result in log copies/mL is Undetected. ADDITIONAL INFORMATION The quantification range of this assay is 20 to 10,000,000 copies/mL (1.30 log copies/mL to 7.00 log copies/mL). Testing was performed by the TK AmpliPrep/TK TaqMan HIV-1 Test version 2.0 ([employer] This test has been modified from the roofer assistant's instructions. Its performance characteristics were determined by [facility] in a manner consistent with CLIA requirements. This test has not been cleared or approved by the U.S. Food and Drug Administration. Test Performed by: [facility] [place] [address] 22 RESULT: Reviewed by: Percy Bah M.D., DJose Prabhakar D([facility]) ADDITIONAL INFORMATION This test was developed using an analyte specific reagent. Its performance characteristics were determined by [facility] in a manner consistent with CLIA requirements. This test has not been cleared or approved by the U.S. Food and Drug Administration. Test Performed by: [facility] [address] 23 Result in log copies/mL is Undetected. ADDITIONAL INFORMATION The quantification range of this assay is 20 to 10,000,000 copies/mL (1.30 log copies/mL to 7.00 log copies/mL). Testing was performed by the TK AmpliPrep/TK TaqMan HIV-1 Test version 2.0 ([employer] This test has been modified from the roofer assistant's instructions. Its performance characteristics were determined by [facility] in a manner consistent with CLIA requirements. This test has not been cleared or approved by the U.S. Food and Drug Administration. Test Performed by: [facility] [place] [address] 24 RESULT: Reviewed by: Percy Bah M.D., Vamshi Rick([facility]) ADDITIONAL INFORMATION This test was developed using an analyte specific reagent. Its performance characteristics were determined by [facility] in a manner consistent with CLIA requirements. This test has not been cleared or approved by the U.S. Food and Drug Administration. Test Performed by: [facility] [place] [address] 25 Because ethnic data is not always readily available, this report includes an eGFR for both -Americans and non- Americans. The National Kidney Disease Education Program (NKDEP) does not endorse the use of the MDRD equation for patients that are not between the ages of 18 and 70, are , have extremes of body size, muscle mass, or nutritional status, or are non- or non-. According to the National Kidney Foundation, irrespective of diagnosis, the stage of the disease is based on the level of kidney function: Stage Description GFR(mL/min/1.73 m(2)) 1 Kidney damage with normal or decreased GFR 90 2 Kidney damage with mild decrease in GFR 60-89 3 Moderate decrease in GFR 30-59 4 Severe decrease in GFR 15-29 5 Kidney failure <15 (or dialysis) 26 Result in log copies/mL is Undetected. ADDITIONAL INFORMATION The quantification range of this assay is 20 to 10,000,000 copies/mL (1.30 log copies/mL to 7.00 log copies/mL). Testing was performed by the TK AmpliPrep/TK TaqMan HIV-1 Test version 2.0 ([employer] This test has been modified from the roofer assistant's instructions. Its performance characteristics were determined by [facility] in a manner consistent with CLIA requirements. This test has not been cleared or approved by the U.S. Food and Drug Administration. Test Performed by: [facility] - [address] [address] 27 Result in log copies/mL is Undetected. ADDITIONAL INFORMATION The quantification range of this assay is 20 to 10,000,000 copies/mL (1.30 log copies/mL to 7.00 log copies/mL). Testing was performed by the TK AmpliPrep/TK TaqMan HIV-1 Test version 2.0 ([employer] This test has been modified from the roofer assistant's instructions. Its performance characteristics were determined by [facility] in a manner consistent with CLIA requirements. This test has not been cleared or approved by the U.S. Food and Drug Administration. Test Performed by: [facility] - [address] [address] Book Or Script Editor: Efren Blackwood II, M.D., Ph.D. 28 Because ethnic data is not always readily available, this report includes an eGFR for both -Americans and non- Americans. The National Kidney Disease Education Program (NKDEP) does not endorse the use of the MDRD equation for patients that are not between the ages of 18 and 70, are , have extremes of body size, muscle mass, or nutritional status, or are non- or non-. According to the National Kidney Foundation, irrespective of diagnosis, the stage of the disease is based on the level of kidney function: Stage Description GFR(mL/min/1.73 m(2)) 1 Kidney damage with normal or decreased GFR 90 2 Kidney damage with mild decrease in GFR 60-89 3 Moderate decrease in GFR 30-59 4 Severe decrease in GFR 15-29 5 Kidney failure <15 (or dialysis) 29 Result in log copies/mL is Undetected. ADDITIONAL INFORMATION The quantification range of this assay is 20 to 10,000,000 copies/mL (1.30 log copies/mL to 7.00 log copies/mL). Testing was performed by the TK AmpliPrep/TK TaqMan HIV-1 Test version 2.0 ([employer] This test has been modified from the roofer assistant's instructions. Its performance characteristics were determined by [facility] in a manner consistent with CLIA requirements. This test has not been cleared or approved by the U.S. Food and Drug Administration. Test Performed by: [place] [address] Book Or Script Editor: Efren Blackwood II, M.D., Ph.D. 30 This patient was not found to have the HLA-B*5701 allele. This patient is at no greater risk than the general population for the development of abacavir hypersensitivity reaction (HSR). Though the likelihood of abacavir HSR is lower in this patient than in someone with the HLA-B*5701 allele, a negative result does not preclude the development of an allergic response to abacavir and cannot substitute for clinical vigilance whenever abacavir therapy is administered. Should abacavir HSR develop, therapy should be discontinued immediately and permanently. ADDITIONAL INFORMATION The HLA-B*57:01 allele is detected by allele specific amplification (IMGT/HLA accession number [id number]). Screening for the HLA-B*57:01 allele is recommended by the FDA before initiating therapy with abacavir. Genotyping is also critical when there is a clinical history of, or when the physician suspects, an abacavir hypersensitivity reaction. However, FDA guidance states that, regardless of HLA-B*57:01 status, abacavir should be permanently discontinued if hypersensitivity cannot be ruled out, even when other diagnoses are possible. Since symptoms of abacavir hypersensitivity are often variable and non-specific and can imitate other conditions commonly seen in HIV patients on antiretroviral therapy, the phenotypic diagnosis of abacavir hypersensitivity can be challenging. For additional information regarding pharmacogenomic genes and their associated drugs, please see the Pharmacogenomic Associations Tables on the [facility] webpage, [email or web address]. This resource also includes information regarding enzyme inhibitors and inducers, as well as potential alternate drug choices. Please note that the information at this link is educational material intended for health healthcare social worker and may not be comprehensive. This educational material is not intended to supersede the care provider's experience and knowledge of her/his patient to establish a diagnosis or a treatment plan. All medications require careful clinical monitoring. Please contact the laboratory at for further information about pharmacogenomic testing. CAUTIONS: Rare or novel variants may be present that could lead to false negative or false positive results. There may be rare or novel HLA-B alleles which could interfere with this assay. There are currently no data indicating whether any other alleles or subtypes are associated with abacavir hypersensitivity. If results obtained do not match the clinical findings (phenotype), additional testing should be considered. Samples may contain donor DNA if obtained from patients who received heterologous blood transfusions or allogeneic blood or marrow transplantation. Results from samples obtained under these circumstances may not accurately reflect the recipient's genotype. For individuals who have received blood transfusions, the genotype usually reverts to that of the recipient within 6 weeks. The impact of blood or marrow transplantation on risk of abacavir hypersensitivity reactions is not defined in the literature. This test was developed and its performance characteristics determined by [facility] in a manner consistent with CLIA requirements. This test has not been cleared or approved by the U.S. Food and Drug Administration. 31 RESULT: Mickie Mcmanus, Ph.D. Test Performed by: [address] [address] Book Or Script Editor: Efren Blackwood II, M.D., Ph.D. 32 Because ethnic data is not always readily available, this report includes an eGFR for both -Americans and non- Americans. The National Kidney Disease Education Program (NKDEP) does not endorse the use of the MDRD equation for patients that are not between the ages of 18 and 70, are , have extremes of body size, muscle mass, or nutritional status, or are non- or non-. According to the National Kidney Foundation, irrespective of diagnosis, the stage of the disease is based on the level of kidney function: Stage Description GFR(mL/min/1.73 m(2)) 1 Kidney damage with normal or decreased GFR 90 2 Kidney damage with mild decrease in GFR 60-89 3 Moderate decrease in GFR 30-59 4 Severe decrease in GFR 15-29 5 Kidney failure <15 (or dialysis) 33 Result in log copies/mL is <1.30. HIV-1 RNA level detected is <20 copies/mL (<1.30 log copies/mL). This assay cannot accurately quantify HIV-1 RNA below this level. ADDITIONAL INFORMATION The quantification range of this assay is 20 to 10,000,000 copies/mL (1.30 log copies/mL to 7.00 log copies/mL). Testing was performed by the TK AmpliPrep/TK TaqMan HIV-1 Test version 2.0 ([employer] Test Performed by: [place] [address] Book Or Script Editor: Efren Blackwood II, M.D., Ph.D. 34 The [facility] of Health recommends samples be tested within 30 hours of collection. This sample exceeds that cut-off. Please consider re-drawing the specimen if clinically indicated. Reviewed by: Bhargav Cruz, Ph.D., D([facility]), FAAAAI 01/22/2016 4:55 PM ADDITIONAL INFORMATION Analyte Specific Reagent: This test was developed and its performance characteristics determined by [facility]. It has not been cleared or approved by the U.S. Food and Drug Administration. Test Performed by: [place] [address] Book Or Script Editor: Efren Blackwood II, M.D., Ph.D. 35 Serum levels of PSA measured using the [employer] DXI Hybritech immunoassay should not be interpreted as absolute evidence of the presence or absence of disease. The PSA value should be used in conjunction with other pertinent clinical diagnostic procedures. The values obtained with different assay methods or kits cannot be used interchangeably. 36 Reviewed by: Percy Bah M.D., Vamshi Rick([facility]) 04/22/2015 6:49 PM ADDITIONAL INFORMATION Analyte Specific Reagent: This test was developed and its performance characteristics determined by [facility]. It has not been cleared or approved by the U.S. Food and Drug Administration. Test Performed by: [place] [address] Book Or Script Editor: Efren Blackwood II, M.D., Ph.D. 37 Because ethnic data is not always readily available, this report includes an eGFR for both -Americans and non- Americans. The National Kidney Disease Education Program (NKDEP) does not endorse the use of the MDRD equation for patients that are not between the ages of 18 and 70, are , have extremes of body size, muscle mass, or nutritional status, or are non- or non-. According to the National Kidney Foundation, irrespective of diagnosis, the stage of the disease is based on the level of kidney function: Stage Description GFR(mL/min/1.73 m(2)) 1 Kidney damage with normal or decreased GFR 90 2 Kidney damage with mild decrease in GFR 60-89 3 Moderate decrease in GFR 30-59 4 Severe decrease in GFR 15-29 5 Kidney failure <15 (or dialysis) 38 Result in log copies/mL is Undetected. ADDITIONAL INFORMATION The quantification range of this assay is 20 to 10,000,000 copies/mL (1.30 log copies/mL to 7.00 log copies/mL). Testing was performed by the TK AmpliPrep/TK TaqMan HIV-1 Test version 2.0 ([employer] Test Performed by: [address] [address] Book Or Script Editor: Efren Blackwood II, M.D., Ph.D. 39 Serum levels of PSA measured using the [employer] DXI Hybritech immunoassay should not be interpreted as absolute evidence of the presence or absence of disease. The PSA value should be used in conjunction with other pertinent clinical diagnostic procedures. The values obtained with different assay methods or kits cannot be used interchangeably. 40 Desirable <150 Borderline high 150-199 High 200-499 Very High >500 41 Desirable <200 Borderline high 200-239 High >239 42 Low <40 Desirable: 40-60 High: >60 43 Desirable: <100 mg/dL Near Optimal: 100-129 mg/dL Borderline High: 130-159 mg/dL High: 160-189 mg/dL Very High: >189 mg/dL 44 Result in log copies/mL is Undetected The quantification range of this assay is 20 copies/mL to 10,000,000 copies/mL (1.30 log copies/mL to 7.00 log copies/mL). Testing was done by the TK AmpliPrep/TK TaqMan HIV-1 Test version 2.0 ([employer] Test Performed by: [place] [address] Book Or Script Editor: Efren Blackwood II, M.D., Ph.D. 45 Because ethnic data is not always readily available, this report includes an eGFR for both -Americans and non- Americans. The National Kidney Disease Education Program (NKDEP) does not endorse the use of the MDRD equation for patients that are not between the ages of 18 and 70, are , have extremes of body size, muscle mass, or nutritional status, or are non- or non-. According to the National Kidney Foundation, irrespective of diagnosis, the stage of the disease is based on the level of kidney function: Stage Description GFR(mL/min/1.73 m(2)) 1 Kidney damage with normal or decreased GFR 90 2 Kidney damage with mild decrease in GFR 60-89 3 Moderate decrease in GFR 30-59 4 Severe decrease in GFR 15-29 5 Kidney failure <15 (or dialysis) 46 RESULT: Reviewed by: Peter Catalan M.D. 09:17:38 ADDITIONAL INFORMATION Analyte Specific Reagent: This test was developed and its performance characteristics determined by [facility]. It has not been cleared or approved by the U.S. Food and Drug Administration. Test Performed by: [place] [address] Book Or Script Editor: Jack Gipson M.D. 47 Serum levels of PSA measured using the [employer] DXI Hybr[employer] immunoassay should not be interpreted as absolute evidence of the presence or absence of disease. The PSA value should be used in conjunction with other pertinent clinical diagnostic procedures. The values obtained with different assay methods or kits cannot be used interchangeably. 48 Result in log copies/mL is 1.68 The quantification range of this assay is 20 copies/mL to 10,000,000 copies/mL (1.30 log copies/mL to 7.00 log copies/mL). Testing was done by the TK AmpliPrep/TK TaqMan HIV-1 Test version 2.0 ([employer] Test Performed by: [place] [address] Book Or Script Editor: Jack Gipson M.D. 49 Potassium reference range changed effective 03/24/14 50 Because ethnic data is not always readily available, this report includes an eGFR for both -Americans and non- Americans. The National Kidney Disease Education Program (NKDEP) does not endorse the use of the MDRD equation for patients that are not between the ages of 18 and 70, are , have extremes of body size, muscle mass, or nutritional status, or are non- or non-. According to the National Kidney Foundation, irrespective of diagnosis, the stage of the disease is based on the level of kidney function: Stage Description GFR(mL/min/1.73 m(2)) 1 Kidney damage with normal or decreased GFR 90 2 Kidney damage with mild decrease in GFR 60-89 3 Moderate decrease in GFR 30-59 4 Severe decrease in GFR 15-29 5 Kidney failure <15 (or dialysis) 51 This is a qualitative test. The TB antigen IU/mL value is required for documentation on certain government reporting forms (e.g., Form I-693), but this value should not be used to monitor disease progression or response to therapy. Diagnosing or excluding tuberculosis disease, and assessing the probability of LTBI, require a combination of epidemiological, historical, medical, and diagnostic findings that should be taken into account when interpreting QuantiFERON-TB results. Test Performed by: [place] [address] Book Or Script Editor: Nima Bernal III, M.D. 52 NO 53 Warning: A positive result is not useful for establishing a diagnosis of syphilis. In most situations, such a result may reflect a prior treated infection; a negative result can exclude a diagnosis of syphilis except for incubating or early primary disease. 54 Result in log copies/mL is 1.36 The quantification range of this assay is 20 copies/mL to 10,000,000 copies/mL (1.30 log copies/mL to 7.00 log copies/mL). Testing was done by the TK AmpliPrep/TK TaqMan HIV-1 Test version 2.0 ([employer] Test Performed by: [place] [address] Book Or Script Editor: Nima Bernal III, M.D. 55 The [facility] Department of Health recommends samples be tested within 30 hours of collection. This sample exceeds that cut-off. Please consider re-drawing the specimen if clinically indicated. Reviewed by: Bhargav Cruz, Ph.D., D([facility]), FAAAAI 11:54:12 Analyte Specific Reagent: This test was developed and its performance characteristics determined by [facility]. It has not been cleared or approved by the U.S. Food and Drug Administration. Test Performed by: [place] [address] Book Or Script Editor: Nima Bernal III, M.D. 56 Specimen Lipemic. Result may not be valid. 57 Because ethnic data is not always readily available, this report includes an eGFR for both -Americans and non- Americans. The National Kidney Disease Education Program (NKDEP) does not endorse the use of the MDRD equation for patients that are not between the ages of 18 and 70, are , have extremes of body size, muscle mass, or nutritional status, or are non- or non-. According to the National Kidney Foundation, irrespective of diagnosis, the stage of the disease is based on the level of kidney function: Stage Description GFR(mL/min/1.73 m(2)) 1 Kidney damage with normal or decreased GFR 90 2 Kidney damage with mild decrease in GFR 60-89 3 Moderate decrease in GFR 30-59 4 Severe decrease in GFR 15-29 5 Kidney failure <15 (or dialysis) Procedures Date Code Description Status 06/15/2018 72239 Holter Monitor Review (24 hr)dr review & interp only Completed 06/14/2018 25519 ECG Monitor/Recording W/Visual Superimposition Scanning Completed 03/15/2018 56340 EKG Tracing & Interpretation Completed 11/17/2017 99929 Diffusing Capacity Completed 11/17/2017 58874 Plethysmography Determination Lung Volumes & Per Airway Completed Resist 11/17/2017 80537 Pulmonary Stress Testing, Inc Measurement Heart Rate, Completed Oximetry 11/17/2017 20024 Pulmonary Function><Bronchodil Completed 06/27/2017 51182 ECHO Transthorasic Realtime 2D W Doppler & Color Flow Hosp Completed 01/13/2017 00313 Diffusing Capacity Completed 01/13/2017 74813 Plethysmography Determination Lung Volumes & Per Airway Completed Resist 01/13/2017 98692 Pulmonary Stress Test Simple Completed 01/13/2017 07991 Pulmonary Function><Bronchodil Completed 01/04/2017 52671 Sleep Study Unattended,HRT Rate,Oxygen Sat,Resp Completed Effort/Airflow 08/01/2015 47629 ECHO Transthoracic, Real-Time 2D With Doppler And Color Completed Flow 07/11/2015 35592 EKG Tracing & Interpretation Completed 03/12/2008 76989 EKG, Interpretation Only Completed Encounters Type Date Location Provider Dx Diagnosis [facility] 1:40p Infectious Balaji Fleming immunodeficiency virus Diseases infection status Z79.899 Other correction (current) drug therapy Office Visit 03/15/2018 [facility] Erick Jorgensen R55 Syncope and collapse 11:15a Of Jenny Queen M.D. Office Visit 02/22/2018 [facility] Pipo Dueñas, L60.8 Other nail disorders 2:00p MD Office Visit 01/30/2018 [facility] Yovani Bonds. Z21 Asymptomatic human 2:00p Infectious Lonnie, immunodeficiency Diseases M.D. virus infection status Z79.899 Other exterminator helper (current) drug therapy Office Visit 09/28/2017 [facility] Yovani Bonds. 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 cerebral ischemic attack, unspecified B20 Human immunodeficiency virus [HIV] disease Z87.442 Personal history of urinary calculi Office Visit 06/26/2017 [facility] Tom Goode G45.9 Transient 12:51p Dino Arzate M.D. cerebral ischemic attack, unspecified Office Visit 06/26/2017 [facility] Evelyne Giron G45.9 Transient 9:47a Shruti, Hospitalists N.P. cerebral ischemic attack, unspecified B20 Human immunodeficiency virus [HIV] disease Z87.442 Personal history of urinary calculi Office Visit 06/25/2017 [facility] Tom Goode G45.9 Transient 12:49p Dino Arzate M.D. cerebral ischemic attack, unspecified Office Visit 06/25/2017 [facility] Evelyne Giron G45.9 Transient 9:46a Assoc, Hospitalists N.P. 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 [facility] Hospitalists (hemispheric) B20 Human immunodeficiency virus [HIV] disease Z87.442 Personal history of urinary calculi Office Visit 05/31/2017 [facility] Yovani Jorgensen Z21 Asymptomatic human 11:10a For Ewa Fleming M.D. immunodeficiency virus Diseases infection status Z79.899 Other exterminator helper (current) drug therapy Office Visit 03/15/2017 1:45p [facility] J[facility]i J44.9 [facility] [place] obstructive Horse Exerciser pulmonary disease, unspecified J98.4 Other disorders of lung Office Visit 02/10/2017 1:15p [facility] J44.9 [facility] [place] obstructive Horse Exerciser pulmonary disease, unspecified F17.210 Nicotine dependence, cigarettes, uncomplicated Office Visit 01/25/2017 [facility] Yovani Jorgensen Z21 Asymptomatic human 11:10a For Ewa Fleming M.D. immunodeficiency virus Diseases infection status Z79.899 Other correction (current) drug therapy Office Visit 12/28/2016 2:00p [facility] R06.02 Shortness of [facility] [place] breath Horse Exerciser R05 Cough R09.82 Postnasal drip F17.210 Nicotine dependence, cigarettes, uncomplicated R06.83 Snoring Z12.2 Encntr screen for malignant neoplasm of respiratory organs Office Visit 09/21/2016 [facility] Yovani Jorgensen Z21 Asymptomatic human 10:50a For Ewa Fleming M.D. immunodeficiency virus Diseases infection status Z79.899 Other correction (current) drug therapy R63.4 Abnormal weight loss Office Visit 07/16/2016 [facility] Yovani Jorgensen Z21 Asymptomatic human 11:10a For Ewa Fleming M.D. immunodeficiency virus Diseases infection status Z79.899 Other exterminator helper (current) drug therapy G47.00 Insomnia, unspecified Office Visit 03/22/2016 [facility] Yovani Jorgensen Z21 Asymptomatic human 1:40p For Ewa Fleming M.D. immunodeficiency virus Diseases infection status Z79.899 Other correction (current) drug therapy G47.00 Insomnia, unspecified Office Visit 02/02/2016 1:40p [facility] Olu Jorgensen R63.4 Abnormal weight Ewa Fleming M.D. loss Diseases Z21 Asymptomatic human immunodeficiency virus infection status Z79.899 Other correction (current) drug therapy Office Visit 12/29/2015 [facility] Yovani D. Z21 Asymptomatic human 1:40p For Ewa Fleming M.D. immunodeficiency virus Diseases infection status R63.4 Abnormal weight loss Z79.899 Other exterminator helper (current) drug therapy Office Visit 10/10/2015 1:15p [facility] Erick Jorgensen R55 Syncope and Of Jenny Queen M.D. collapse Office Visit 07/11/2015 2:00p [facility] Erick Jorgensen R55 Syncope and Of Jenny Queen M.D. collapse R94.31 Abnormal electrocardiogram [ECG] [EKG] Office Visit 05/01/2015 [facility] Yovani Jorgensen Z21 Asymptomatic human 1:20p For Ewa Fleming M.D. immunodeficiency virus Diseases infection status Z23 Encounter for immunization Office Visit 10/30/2014 1:40p [facility] Olu Jorgensen V08 HIV Infection Ewa Fleming M.D. Asymptomatic Diseases Status Office Visit 04/23/2014 11:30a [facility] Olu Jorgensen V08 HIV Infection Ewa Fleming M.D. Asymptomatic Diseases Status V03.82 Streptococcus Pneumoniae Vaccination Spec Other Office Visit 10/22/2013 2:40p [facility] Olu Jorgensen V08 HIV Infection Ewa Fleming M.D. Asymptomatic Diseases Status v03.82 Streptococcus Pneumoniae Vaccination Spec Other Plan of Treatment Future Appointment(s):09/18/2019 1:45 pm - Janki Arias MD at [facility]09/14/2018 - Janki Arias MDJ44.9 Chronic obstructive pulmonary disease, [id number] Encounter for screening for malignant neoplasm of respiratorNew Xrays:CT Lung Screening-Low Dose, Ordered: 09/14/18
[2018-10-12] MEDS ORDERED: Morphine 4 MG/ML VIAL (1 ml) 4 MG/ML VIAL IV ONE (02:00)
[2018-10-12] MEDS ORDERED: Ketorolac INJ* 30 MG/ML 1 ML VIAL IV PUSH ONE (02:00)
[2018-10-12] MEDS ORDERED: Ondansetron INJ* 2 MG/ML VIAL IV ONE (02:00)
[2018-10-12] MEDS ORDERED: NS 0.9% 1000 ML** 1,000 ML IV ONE (02:00)
--- NOTE | 2018-10-12 02:09 | ED ---
GI/ HPI - HPI Summary HPI Summary: Patient is a 68 y/o M presenting to ED with complaints of left flank pain and chills. Hx of kidney stones, he notes that he has experienced N/V and urinary Sx with previous stones but denies any such Sx at this time. Fever is denied as well. However, patient does note that the present pain feels similar to the pain he experienced during previous episodes of kidney stones. Hx of lithotripsy. Dr. Lorenzo is urologist. Patient is HIV+, states that he is on two medications for this, viral loads are reported to have been "good". Patient took Advil 600 mg at 2235 10/11/18. On triage, pain is rated 7/10, nothing is noted to aggravate/alleviate Sx. Home medications and allergies are reviewed. - History of Current Complaint Chief Complaint: EDFlankPain Time Seen by Provider: 10/12/18 01:55 Stated Complaint: POSS KIDNEY STONE PER PT Hx Obtained From: Patient Onset/Duration: Still Present Timing: Constant Current Severity: Severe Pain Intensity: 7 Location of Pain: Flank - LEFT Associated Signs and Symptoms: Positive: Flank Pain - LEFT, Chills, Other: - NEGATIVE - URINARY SX. Negative: Nausea, Vomiting, Fever Aggravating Factor(s): Nothing Alleviating Factor(s): Nothing - Additional Pertinent History Primary Care Physician: [id number] - Allergy/Home Medications Allergies/Adverse Reactions: Allergies Allergy/AdvReac Type Severity Reaction Status Date / Time No Known Allergies Allergy Verified 10/12/18 14:05 PMH/Surg Hx/FS Hx/Imm Hx Endocrine/Hematology History: Reports: Hx Thyroid Disease - had a goitermd monitoring nodules on thyroid Denies: Hx Diabetes, Hx Anemia Cardiovascular History: Reports: Other Cardiovascular Problems/Disorders - PVC's , vasovagals occasionally Denies: Hx Hypertension, Hx Pacemaker/ICD Respiratory History: Reports: Hx Asthma - A CHILD Denies: Other Respiratory Problems/Disorders GI History: Denies: Hx Jaundice, Other GI Disorders History: Reports: Hx Kidney Stones - RIGHT Denies: Hx Renal Disease, Other Problems/Disorders Musculoskeletal History: Reports: Hx Bursitis - BILATERAL SHOULDER- NO PROBLEMS RECENTLY Sensory History: Reports: Hx Cataracts - tristian, Hx Contacts or Glasses - cheater READERS Denies: Hx Hearing Aid Opthamlomology History: Reports: Hx Cataracts - tristian, Hx Contacts or Glasses - cheater READERS Neurological History: Denies: Other Neuro Impairments/Disorders Psychiatric History: Reports: Hx Anxiety - ON MEDICATION FOR, Hx Depression - ON MEDICATION FOR Denies: Hx Panic Disorder - Cancer History Hx Chemotherapy: No - Surgical History Surgery Procedure, Year, and Place: 10/2015- STENT PLACEMENT FOR KIDNEY AND REMOVED. MULTIPLE PROCEDURES FOR KIDNEY SURGERIES-LITHROTRIPSY. PILONIDAL CYST REMOVED MANY YEARS AGO . right kidney stone and stent placed 03/29/18 Hx Anesthesia Reactions: No Infectious Disease History: No Infectious Disease History: Reports: Hx Human Immunodeficiency Virus (HIV) Denies: Traveled Outside the [place] in Last 30 Days - Family History Known Family History: Negative: Hypertension, Diabetes - Social History Alcohol Use: Rare Alcohol Amount: 1 q2-3 months Substance Use Type: Reports: None Smoking Status (MU): Former Smoker Type: Cigarettes Amount Used/How Often: 1 PPD X 51 YEARS Have You Smoked in the Last Year: No Review of Systems Positive: Chills. Negative: Fever Negative: Vomiting, Nausea Positive: no symptoms reported - NO URINARY SX ARE REPORTED , flank pain - LEFT All Other Systems Reviewed And Are Negative: Yes Physical Exam - Summary Physical Exam Summary: Appearance: Well-appearing, Well-nourished, lying in bed comfortably Skin: Warm, dry, no obvious rash Eyes: sclera anicteric, no conjunctival pallor ENT: mucous membranes moist, pharynx appears normal Neck: Supple, nontender Respiratory: Clear to auscultation, no signs of respiratory distress Cardiovascular: Normal S1, S2. No murmurs. Normal distal pulses in tibial and radial bilaterally. Abdomen: Soft, nontender, normal active bowel sounds present Musculoskeletal: Normal, Strength/ROM Intact Neurological: A&Ox3, awake and alert, mentation is normal, speech is fluent and appropriate Psychiatric: affect is normal, does not appear anxious or depressed Triage Information Reviewed: Yes Vital Signs On Initial Exam: Initial Vitals Temp Pulse Resp BP Pulse Ox 99 F 94 22 183/112 97 10/12/18 00:30 10/12/18 00:30 10/12/18 00:30 10/12/18 00:30 10/12/18 00:30 Vital Signs Reviewed: Yes Diagnostics - Vital Signs Vital Signs Temp Pulse Resp BP Pulse Ox 10/12/18 00:30 99 F 94 22 183/112 97 - Laboratory Result Diagrams: 10/12/18 02:15 10/12/18 02:15 Lab Statement: Any lab studies that have been ordered have been reviewed, and results considered in the medical decision making process. - CT CT ABD/PEL CT Interpretation Completed By: Radiologist Summary of CT Findings: IMPRESSION: 1. A 6.4 mm left proximal ureteral stone with hydronephrosis and hydroureter. Significant left perinephric stranding which may be due to forniceal rupture. 2. Multiple additional nonobstructing bilateral renal stones. 3. Stable right upper pole cyst. 4. Enlarged prostate gland with coarse calcifications. 5. Unchanged right inguinal hernia containing small portion of the bladder. 6. Hepatomegaly. THIS REPORT WAS REVIEWED BY DR. REAVES Re-Evaluation - Re-Evaluation First Eval Re-Evaluation Time: 03:53 Comment: Results of labs and tests were discussed with the patient, he will be discharged to home and is advised to follow up with Dr. Lorenzo. He is agreeable with this. GIGU Course/Dx - Course Course Of Treatment: Patient is a 68 y/o M presenting to ED with complaints of left flank pain and chills. Hx of kidney stones, he notes that he has experienced N/V and urinary Sx with previous stones but denies any such Sx at this time. Fever is denied as well. However, patient does note that the present pain feels similar to the pain he experienced during previous episodes of kidney stones. Hx of lithotripsy. Dr. Lorenzo is urologist. Patient is HIV+, states that he is on two medications for this, viral loads are reported to have been "good". Patient took Advil 600 mg at 2235 10/11/18. Physical exam is unremarkable. Labs showed WBC 13.4, Hgb 12.1, Hct 37, absolute neuts 10.7, absolute monos 1.3, creatinine 1.26, glucose 140. CT ABD/PEL IMPRESSION: 1. A 6.4 mm left proximal ureteral stone with hydronephrosis and hydroureter. Significant left perinephric stranding which may be due to forniceal rupture. 2. Multiple additional nonobstructing bilateral renal stones. 3. Stable right upper pole cyst. 4. Enlarged prostate gland with coarse calcifications. 5. Unchanged right inguinal hernia containing small portion of the bladder. 6. Hepatomegaly. During ED course, patient received fluids, Percocet 5/325 2 tabs , Zofran 8 mg IV, morphine 10 mg IV, toradol 10 mg IV. Results of labs and tests were discussed with the patient, he will be discharged to home and is advised to follow up with Dr. Lorenzo. He is agreeable with this. - Diagnoses Provider Diagnoses: Renal colic Discharge - Sign-Out/Discharge Documenting (check all that apply): Patient Departure - discharge Patient Received Moderate/Deep Sedation with Procedure: No - Discharge Plan Condition: Good Disposition: HOME Patient Education Materials: Kidney Stones (ED) Referrals: Angel Lorenzo MD [Medical Doctor] - 1 Day Additional Instructions: I'd like you to start taking naprosen (alleve) 2 pills twice daily as a baseline for your pain. You can supplement that with the percocet as needed. The zofran is for nausea. Call Dr. Lorenzo's office first thing in the morning as the stone is big enough that you might need a surgical procedure, but Dr. Lorenzo can advise you on that once he sees you and the CT scan. - Billing Disposition and Condition Condition: GOOD Disposition: Home - Attestation Statements Document Initiated by Parmjit: Yes Documenting Scribe: MORA BARRERA Provider For Whom Parmjit is Documenting (Include Credential): FRANC REAVES MD Scribe Attestation: IMORA, scribed for FRANC REAVES MD on 10/13/18 at 1923. Scribe Documentation Reviewed: Yes Provider Attestation: The documentation as recorded by the MORA noguera accurately reflects the service I personally performed and the decisions made by me, FRANC REAVES MD Status of Scribe Document: Viewed
[2018-10-12] MEDS ORDERED: Morphine 10 MG/ML VIAL (1 ml) ONE (02:10)
[2018-10-12 02:38] LABS: ABS Basophils 0.1 10^3/ul (0-0.2); ABS Eosinophils 0.1 10^3/ul (0-0.6); ABS Lymphocytes 1.3 10^3/ul (1.0-4.8); ABS Monocytes 1.3 10^3/ul (0-0.8); ABS Neutrophils 10.7 10^3/ul (1.5-7.7); Eosinophil % 0.5 %; Hematocrit 37 % (42-52); Hemoglobin 12.1 g/dL (14.0-18.0); Lymphocyte % 9.8 %; Mean Corpuscular HGB Conc 33 g/dL (31-36); Mean Corpuscular Hemoglobin 28 pg (27-31); Mean Corpuscular Volume 85 fL (80-94); Mean Platelet Volume 7.4 fL (7.4-10.4); Platelet Count 338 10^3/uL (150-450); Red Blood Count 4.37 10^6 /uL (4.18-5.48); Red Cell Distribution Width 14 % (10.5-15); White Blood Count 13.4 10^3/uL (3.5-10.8)
[2018-10-12 02:49] LABS: BUN/Creatinine Ratio 12.7 (8-20); Calcium 9.8 mg/dL (8.6-10.3); EGFR African American 69.3 (>60); EGFR Non-African American 57.3 (>60); Potassium 3.7 mmol/L (3.5-5.0); Total Bilirubin 0.3 mg/dL (0.2-1.0)
[2018-10-12] MEDS ORDERED: oxyCODONE/Acetamin 5/325 MG* TAB PO ONE (04:01)
[2018-10-12 04:24] VITALS: BP 136/77
== END 2018-10-12 04:23 | disposition home or self-care (01) ==
LOC: ED 00:28
DX: N23 Unspecified renal colic (principal); N13.2 Hydronephrosis with renal and ureteral calculous obstruction; K40.90 Unilateral inguinal hernia, without obstruction or gangrene, not specified as recurrent; K76.89 Other specified diseases of liver; E04.1 Nontoxic single thyroid nodule; F41.9 Anxiety disorder, unspecified; F32.9 Major depressive disorder, single episode, unspecified; Z79.899 Other long term (current) drug therapy; Z87.891 Personal history of nicotine dependence
CPT/HCPCS: 36415; 74176; 80053; 85025; 96361; 96374; 96375; 99283; A9270-GY; J1885; J2270; J2405

== ENCOUNTER 2018-10-12 13:46 | Inpatient (IN) | payer MEDICARE, BC ==
--- NOTE | 2018-10-12 14:09 | HP ---
CC: Dr. Hudson; Dr. Kaur * DATE OF ADMISSION: 10/12/2018. AGE: 68-year-old male. ADMITTING DIAGNOSES: 1. Left hydronephrosis. 2. Obstructing calculus left proximal ureter. 3. Bilateral renal calculi. PLANNED PROCEDURE TODAY: Left stent insertion, possible left ureteroscopy (to be followed in the near future by lithotripsy). SURGEON: Dr. Angel Lorenzo. HISTORY OF PRESENT ILLNESS: Pankaj Barnett is a 68-year-old gentleman with a history of recurrent bilateral renal calculi. He started having left flank pain , nausea, and vomiting initially about a week ago which had improved and then became significantly worse over the last 24 hours. He went to the emergency room yesterday and a CT scan revealed an approximately 6 to 7 mm obstructing calculus in the proximal left ureter with significant extravasation noted. In addition, he has bilateral renal calculi. PAST MEDICAL HISTORY: Significant for: 1. Multiple bilateral recurrent renal calculi. 2. HIV positive. 3. History of depression. 4. History of high cholesterol. PAST SURGICAL HISTORY: Significant for multiple surgical procedures, including lithotripsy and laser lithotripsy for recurrent bilateral renal calculi. MEDICATIONS ON ADMISSION: 1. Christopher aspirin 162 mg daily. 2. Descovy 200-25 mg one tablet daily. 3. Vitamin D3 1,000 units daily. 4. Atorvastatin 20 mg daily. 5. Efavirenz 600 mg daily. 6. Aspirin 81 mg daily. 7. Sodium chloride 1 gm every other day. 8. Mirtazapine 15 mg daily. ALLERGIES: No known drug allergies. FAMILY HISTORY: Negative for stones. SOCIAL HISTORY: He is a former smoker with an approximate five year smoking history who quit in 2017. REVIEW OF SYSTEMS: He denies any chest pain or shortness of breath. There is no history of diabetes mellitus. PHYSICAL EXAMINATION GENERAL: Pleasant, middle-aged, -[place] gentleman. VITAL SIGNS: Blood pressure 126/80, pulse 105 per minute and regular, temperature 99.6, oxygen saturation 97 percent on room air. CARDIOVASCULAR: Regular rate and rhythm, S1, S2. LUNGS: Clear bilaterally. ABDOMEN: Soft with left flank tenderness. IMPRESSION: Lbjus-xts-ufxc-old gentleman with an obstructing calculus in the left proximal ureter and bilateral renal calculi. PLAN: Planned procedure is left stent insertion, possible ureteroscopy (likely to be followed in the near future by shockwave lithotripsy). [id number]/[facility] #: [id number] TY
[2018-10-12] MEDS ORDERED: cefTRIAXone(*) 2 GM ADDV.VIAL IVPB ONE (14:17)
[2018-10-12] MEDS ORDERED: Gentamicin ADULT (*) 40 MG/ML VIAL (2 ML VIAL = 80 MG) ONE (14:24)
[2018-10-12] MEDS ORDERED: Buffered Lidocaine 1% SYRIN* 1 ML/SYRINGE INTRADERM ONE (14:56)
[2018-10-12] MEDS ORDERED: Lactated Ringers 1000 ML Bag* 1,000 ML IV SCH ×2 (15:00→18:38)
[2018-10-12] MEDS ORDERED: fentaNYL* 50 MCG/ML 2 ML VIAL (100 MCG VIAL) ONE (15:47)
[2018-10-12] MEDS ORDERED: Midazolam* 1 MG/ML 2 ML VIAL (2 MG) ONE (15:47)
[2018-10-12] MEDS ORDERED: Famotidine IV* 10 MG/ML 2 ML (20 mg) ONE (16:11)
[2018-10-12] MEDS ORDERED: Iohexol 180 (CONTRAST) 10 ML SDV IV ONE (16:13)
[2018-10-12] MEDS ORDERED: Ondansetron INJ* 2 MG/ML VIAL IV PRN (16:33)
[2018-10-12] MEDS ORDERED: Acetaminophen IV 1GM/100ML * 1,000 MG/100 ML VIAL IVPB ONE (16:33)
[2018-10-12] MEDS ORDERED: HYDROcodone/ACETAMIN 5-325 MG* 1 TAB PO PRN ×2 (16:33→23:34)
[2018-10-12] MEDS ORDERED: fentaNYL* 50 MCG/ML 2 ML VIAL (100 MCG VIAL) IV PRN (16:33)
[2018-10-12] MEDS ORDERED: PROCHLORPERAZINE INJ 5 MG/ML 2 ML VIAL IV PRN (16:33)
[2018-10-12] MEDS ORDERED: DiMENhydriNATE IV* 50 MG/ML VIAL IV PUSH PRN (16:33)
[2018-10-12] MEDS ORDERED: diPHENhydraMINE IV* 50 MG/ML 1 ml VIAL (BENADRYL) IV PRN (16:33)
[2018-10-12] MEDS ORDERED: Naloxone* 0.4 MG/ML 1 ML VIAL IV PRN (16:33)
[2018-10-12] MEDS ORDERED: Acetaminophen IV 1GM/100ML * 100 ML ONE (16:35)
[2018-10-12] MEDS ORDERED: Dexamethasone IV* 4 MG/ML 1 ML (4 MG) ONE (16:48)
[2018-10-12] MEDS ORDERED: Propofol* 10 MG/ML 20 ML BTL ONE (16:48)
[2018-10-12] MEDS ORDERED: Lidocaine 2% PF * 5 ML VIAL ONE (16:48)
[2018-10-12 19:06] LABS: ABS Basophils 0.1 10^3/ul (0-0.2); ABS Lymphocytes 0.9 10^3/ul (1.0-4.8); ABS Monocytes 1.3 10^3/ul (0-0.8); ABS Neutrophils 16.8 10^3/ul (1.5-7.7); Eosinophil % 0.1 %; Hematocrit 33 % (42-52); Hemoglobin 10.9 g/dL (14.0-18.0); Lymphocyte % 4.9 %; Mean Corpuscular HGB Conc 33 g/dL (31-36); Mean Corpuscular Hemoglobin 28 pg (27-31); Mean Corpuscular Volume 85 fL (80-94); Mean Platelet Volume 6.7 fL (7.4-10.4); Platelet Count 309 10^3/uL (150-450); Red Cell Distribution Width 14 % (10.5-15); White Blood Count 19.1 10^3/uL (3.5-10.8)
[2018-10-12 19:12] LABS: INR 1.23 (0.82-1.09)
[2018-10-12 19:25] LABS: BUN/Creatinine Ratio 11.3 (8-20); Calcium 9.2 mg/dL (8.6-10.3); EGFR African American 56.7 (>60); EGFR Non-African American 46.8 (>60); Potassium 4.3 mmol/L (3.5-5.0)
[2018-10-12] MEDS ORDERED: NS 0.9% 1000 ML** 2,000 ML IV ONE (19:49)
--- NOTE | 2018-10-12 20:23 | HP ---
CC: Dr. Hudson; Dr. Lorenzo * HISTORY AND PHYSICAL: DATE OF ADMISSION: 10/12/18 PROVIDER: Mercedes Denton NP ATTENDING PHYSICIAN WHILE IN THE HOSPITAL: Dr. Hamilton Charles.* (DICTATED BY MERCEDES DENTON NP) PRIMARY CARE PROVIDER: Dr. Chapin Hudson. CHIEF COMPLAINT: Renal stent placement. HISTORY OF PRESENT ILLNESS: Mr. Barnett is a 68-year-old male with a past medical history significant for HIV; history of renal calculi, status post stenting and hyperlipidemia, who presented to the hospital for an elective renal stent placement with Dr. Lorenzo. The patient reported to the emergency room last evening due to left flank pain, nausea and vomiting, which became significantly worse over the last [address] hours. He had a CT of the abdomen and pelvis in the emergency room, which showed a 6 to 7 mm obstructing renal calculus to the proximal left ureter with significant extravasation noted. The patient was discharged from the emergency room with a scheduled outpatient OR time. He returned to the hospital today to have the stent placed and upon admission to PACU, the patient was found to have a fever of 101, he was tachycardic. The patient did have a 13,000 white count at 2 a.m. on 10/12/18. Upon presentation to the hospital for his renal stent, he did meet sepsis criteria. The patient went to the OR. He had a left ureteral stent placed and a Rodriguez by Dr. Lorenzo. Due to his fever and tachycardia, we were asked to see and evaluate him for admission. PAST MEDICAL HISTORY: Significant for: 1. Multiple bilateral recurrent renal calculi. 2. HIV positive. 3. History of depression. 4. History of high cholesterol. PAST SURGICAL HISTORY: Multiple surgeries including lithotripsy and laser lithotripsy and recurrent bilateral stent placements. HOME MEDICATIONS: Include: 1. Aspirin 81 mg p.o. daily. 2. Descovy 200/25 one tablet daily. 3. Vitamin D3 1000 units daily. 4. Atorvastatin 20 daily. 5. Efavirenz 600 mg p.o. daily. 6. Mirtazapine 15 mg daily. 7. Vitamin C 500 mg p.o. daily. 8. Fish oil 1200 to 1300 International Units. 9. Multivitamin Plus 50 one tab p.o. daily. ALLERGIES: No known drug allergies. FAMILY HISTORY: No reported history of coronary artery disease. Mother with diabetes, from renal failure at the age of 71. No reported history of cancer within the family. SOCIAL HISTORY: The patient reports that he quit smoking in 2017. Prior to that, he smoked half-a-pack a day for approximately 50 years. He reports rare alcohol use. No illicit drug use. He is . Surrogate decision maker in the event he is unable to make his own decisions is his sister or his partner, Sly Dudley. He is a DNR. REVIEW OF SYSTEMS: The patient reports fever. Denies chills or unintended weight loss. Denies any chest pain or edema. No cough, hemoptysis, or shortness of breath. No nausea, vomiting, or diarrhea. No gross hematuria or dysuria. Denies any focal weakness or sensory loss. Denies any visual complaints, dysphagia, arthralgias, myalgias, rashes, lesions, or open sores. Denies any psychosis or anxiety. He does report mild abdominal pain and tenderness to the left flank. PHYSICAL EXAMINATION GENERAL: At this time, Mr. Barnett is a 68-year-old male. He is resting in his bed in his room. VITAL SIGNS: Heart rate is 95, blood pressure 110/63, temperature is 99.5, respirations are 18, O2 saturation 96%. HEENT: Head is atraumatic, normocephalic. Eyes: EOMs are intact. Sclerae anicteric and not pale. Oral mucosa appeared to be moist. NECK: Supple. LUNGS: Clear to auscultation bilaterally. No wheezes, rales, or rhonchi. CARDIAC: S1, S2. Regular rate and rhythm. No murmurs, rubs, or gallops. ABDOMEN: Soft and nontender. Bowel sounds are present x4. He does have a Rodriguez, which is draining to gravity. EXTREMITIES: He is able to move all 4 extremities with 5/5 strength. NEUROLOGIC: He is awake, alert, oriented x3. Speech is clear. Thought process is intact. There are no gross focal deficits. SKIN: Intact. DIAGNOSTIC STUDIES/LAB DATA: On 10/12/18 at 02:15: WBCs were 13.4, RBCs 4.37 , hemoglobin 12.1, hematocrit was 37, platelet count was 338. Sodium 137, potassium 3.7, chloride 104, carbon dioxide was 25, anion gap was 8, BUN was 16 , creatinine 1.26, glucose 140, calcium 9.8. ASTs were 22, ALTs were 20, alkaline phosphatase 102. He did have a CT of the abdomen and pelvis on 10/12/17 at 2 a.m., radiologist impression: A 6.4 mm left proximal ureteral stone with hydronephrosis and hydroureter, significant left perinephric stranding, which may be due to forniceal rupture, multiple additional nonobstructing bilateral renal stones, stable right upper pole cyst, enlarged prostate with coarse calcification, unchanged right inguinal hernia containing small portion of the bladder, hepatomegaly. ASSESSMENT AND PLAN: Mr. Barnett is a 68-year-old male, who presented to [facility] today for left ureteral stent placement for obstructing renal calculi with Dr. Lorenzo. He will be admitted under observation for: 1. Sepsis. The patient did meet sepsis on arrival to the hospital. He did receive IV antibiotics at the time of admission at 6:30 p.m. I will get a CBC, a BMP. We will continue his ceftriaxone 1 g q.24 hours. He will have IV fluids , LR at 200 cc per hour. We will continue to monitor him for signs of sepsis. At this time, he meets sepsis criteria with elevated heart rate, elevated white count, and suspected source of left pyelonephritis. He will be monitored overnight. The patient also had a left ureteral stent placed. I am getting blood cultures at this time. 2. Human immunodeficiency virus. The patient will continue his outpatient medications for human immunodeficiency virus. 3. Hyperlipidemia. He will continue on atorvastatin 20 mg p.o. daily. 4. FEN. He can have a regular diet. 5. Code status. He is a DNR. 6. DVT prophylaxis. I will place him on SCDs. TIME SPENT: Time spent on this admission was approximately 60 minutes, greater than half that time was spent at the bedside reviewing events leading thus far to his hospitalization, performing physical exam, and reviewing my plan of care. I have discussed this with my attending, Dr. Hamilton Charles; he is in agreement with my plan. MERCEDES DENTON, WIRELINE OPERATOR [id number]/[facility] #: [id number] [facility]
[2018-10-12] MEDS ORDERED: HYDROcodone/ACETAMIN 5-325 MG* 1 TAB PO ONE (20:37)
--- NOTE | 2018-10-12 20:48 | OP ---
CC: Dr. Hudson; Dr. Kaur * DATE OF OPERATION: 10/12/18 - ROOM #420 DATE OF : 54 SURGEON: Dr. Lorenzo. ANESTHESIOLOGIST: Dr. Mcnulty. ANESTHESIA: General. PRE-OP DIAGNOSES: 1. Left hydronephrosis. 2. Obstructing calculus, left ureter. 3. Bilateral renal calculi. POST-OP DIAGNOSES: 1. Left hydronephrosis. 2. Obstructing calculus, left ureter. 3. Bilateral renal calculi. OPERATIVE PROCEDURE: 1. Cystoscopy. 2. Left retrograde pyelogram. 3. Left stent insertion. COMPLICATIONS: None. POSTOPERATIVE CONDITION: Stable. STENT USED: 6-Polish stent, left ureter. SPECIMEN: Urine from left renal pelvis for culture and sensitivity. INDICATIONS: Pankaj Barnett is a 68-year-old gentleman who was brought in for urgent left stent insertion for an obstructing calculus in the left ureter. When he had been seen in my office earlier today, his temperature was 99.6. He was sent over to the hospital and within a couple of hours, his temperature had climbed to 104 and he has been brought in for urgent left stent insertion, to be followed later on in the future by either laser lithotripsy or shockwave lithotripsy. DESCRIPTION OF PROCEDURE: After induction of general anesthesia, the patient was placed in dorsal lithotomy position. Sequential compression devices were in place and functioning. Initial evaluation revealed mild strictures in the proximal bulbar urethra and mild to moderately enlarged prostate, and some cloudy residual urine in the bladder. A guidewire was introduced into the left ureter. Once the wire was advanced beyond the obstructing calculus, there was significant drainage of cloudy urine from the left kidney. An open-ended catheter was advanced into the left renal pelvis and urine was collected for culture and sensitivity. I aspirated about 20 cc of purulent urine out of the left kidney before proceeding with stent insertion. Limited retrograde pyelogram revealed left hydronephrosis. A 6-Polish stent was introduced and positioned under fluoroscopy with good proximal and distal positioning obtained. An 18-Polish Rodriguez was placed for temporary bladder drainage. The patient tolerated the procedure satisfactorily and was transferred back to the recovery area in stable condition. [id number]/[facility] #: [id number] [facility]
[2018-10-12] MEDS ORDERED: DESCOVY PO SCH (21:00)
[2018-10-12] MEDS: Atorvastatin* 20 MG TAB PO SCH (21:08)
[2018-10-12] MEDS: Mirtazapine TAB* 15 MG PO SCH (21:08)
[2018-10-12] MEDS: EFAVIRENZ 600 MG PO SCH (21:08)
[2018-10-12 21:21] LABS: INR 1.25 (0.82-1.09)
[2018-10-12] MEDS: Acetaminophen TAB* 325 MG PO PRN (21:57)
[2018-10-12] MEDS ORDERED: Ibuprofen TAB* 600 MG PO ONE (23:34)
[2018-10-12] MEDS ORDERED: Ibuprofen TAB* 600 MG ONE (23:36)
[2018-10-13] MEDS: NS 0.9% 1000 ML** 1,000 ML IV SCH ×3 (00:37→20:16)
--- NOTE | 2018-10-13 01:39 | PN ---
Progress Note - Progress Note Date of Service: 10/13/18 Note: Patient persistently febrile. Will broaden coverage with Cefepime and d/c ceftriaxone
[2018-10-13] MEDS: Acetaminophen TAB* 325 MG PO PRN ×2 (01:40→18:20)
[2018-10-13] MEDS: Cefepime 2 GM in Dextrose(*) 2 GM/50 ML BAG IV SCH ×2 (02:15→15:46)
[2018-10-13 06:46] LABS: ABS Basophils 0.1 10^3/ul (0-0.2); ABS Eosinophils 0.1 10^3/ul (0-0.6); ABS Lymphocytes 1.6 10^3/ul (1.0-4.8); ABS Monocytes 1.5 10^3/ul (0-0.8); ABS Neutrophils 16.8 10^3/ul (1.5-7.7); Eosinophil % 0.4 %; Hematocrit 31 % (42-52); Hemoglobin 10.2 g/dL (14.0-18.0); Lymphocyte % 8.2 %; Mean Corpuscular HGB Conc 33 g/dL (31-36); Mean Corpuscular Hemoglobin 28 pg (27-31); Mean Corpuscular Volume 85 fL (80-94); Mean Platelet Volume 6.8 fL (7.4-10.4); Platelet Count 304 10^3/uL (150-450); Red Blood Count 3.69 10^6 /uL (4.18-5.48); Red Cell Distribution Width 15 % (10.5-15)
[2018-10-13 06:59] LABS: BUN/Creatinine Ratio 10.4 (8-20); Calcium 8.2 mg/dL (8.6-10.3); EGFR Non-African American 45.4 (>60); Potassium 3.7 mmol/L (3.5-5.0)
[2018-10-13] MEDS: DESCOVY PO SCH (09:18)
[2018-10-13] MEDS ORDERED: Morphine INJ* 2 MG/ML 1 ML SYRINGE (TWO MG - NEW SYRINGE VERSION) IV PRN (10:21)
--- NOTE | 2018-10-13 11:20 | PN ---
Subjective Date of Service: 10/13/18 Interval History: Mr. Barnett is feeling much better today. Partner is at bedside. He is actually hoping to go home. He had fever and chills early this morning. Had some pain overnight which is now resolved, but he is slightly upset that it took so long to get pain medication. Has been urinating without difficulty. Denies CP, SOB, N/V. Appetite is good. No concerns from nursing. Family History: Unchanged from Admission Social History: Unchanged from Admission Past Medical History: Unchanged from Admission Objective Active Medications: Acetaminophen (Tylenol Tab*) 650 mg PO Q4H PRN FEVER/PAIN Hydrocodone Bitart/Acetaminophen ([place] 5-325 Tab*) 1 tab PO Q6H PRN PAIN Atorvastatin Calcium (Lipitor*) 20 mg PO 2100 [facility] Sodium Chloride (Ns 0.9% 1000 Ml) 1,000 mls @ 125 mls/hr IV PER RATE [facility] Cefepime HCl (Maxipime 2 Gm In Dextrose Duplex (*)) 2 gm in 50 mls @ 100 mls/ hr IV Q12H [facility] Mirtazapine (Remeron Tab*) 15 mg PO BEDTIME [facility] Morphine Sulfate (Morphine Inj (Syringe))*) 2 mg IV Q4H PRN PAIN - SEVERE Pto: Efavirenz 600 (Mg) 600 mg PO BEDTIME [facility] Pto: Descovy 200-25 (Mg Tablet 1 Tab) 1 tab PO DAILY [facility] Vital Signs - 8 hr 10/13/18 10/13/18 03:23 07:15 Temperature 102.9 F 98.6 F Pulse Rate 123 102 Respiratory 16 24 Rate Blood Pressure 133/54 107/51 (mmHg) O2 Sat by Pulse 93 93 Oximetry Oxygen Devices in Use Now: None Appearance: Middle-aged male sitting in bed in NAD Eyes: No Scleral Icterus Ears/Nose/Mouth/Throat: Mucous Membranes Moist Neck: NL Appearance and Movements; NL JVP, Trachea Midline Respiratory: Symmetrical Chest Expansion and Respiratory Effort, Clear to Auscultation Cardiovascular: NL Sounds; No Murmurs; No JVD, RRR Abdominal: NL Sounds; No Tenderness; No Distention Extremities: No Edema Skin: No Rash or Ulcers Neurological: Alert and Oriented x 3 Lines/Tubes/Other Access: Clean, Dry and Intact Peripheral IV Nutrition: Taking PO's Result Diagrams: 10/13/18 06:27 10/13/18 06:27 Assess/Plan/Problems-Billing Assessment: Mr. Barnett is a 68 yo M with PMH of HIV, depression, HLD, and recurrent nephrolithiasis; who presented to the ED with c/o fever and tachycardia and was found to have sepsis secondary to pyelonephritis. - Patient Problems (1) Pyelonephritis Code(s): N12 - TUBULO-INTERSTITIAL NEPHRITIS, NOT SPCF ACUTE OR CHRONIC Comment: - Secondary to nephrolithiasis - CT from 10/12/18 shows straning consistent with pyelo - Urine culture and sensitivies pending - Continue cefepime, IVF (2) MEÑO (acute kidney injury) Code(s): N17.9 - ACUTE KIDNEY FAILURE, UNSPECIFIED Comment: - Postrenal, secondary to obstructing stone - Continue IVF (3) Sepsis Comment: - Resolved - Met criteria on admission and overnight with fever, tachycardia, tachypnea, and leukocytosis; source is pyelonephritis - Received appropriate fluid bolus and abx - Plan as above (4) Nephrolithiasis Code(s): N20.0 - CALCULUS OF KIDNEY Comment: - Recurrent for a number of years - S/p left ureteral stent placement 10/12/[address] Lorenzo - Will need outpatient f/u for definitive stone treatment and eventual stent removal - Continue [place], morphine (5) HIV (human immunodeficiency virus infection) Comment: - Most revent CD4 count in 12/2017 was 800 - Continue Effavirenz and Descovy (6) Hyperlipidemia Code(s): E78.5 - HYPERLIPIDEMIA, UNSPECIFIED Comment: - Continue atorvastatin (7) Depression Code(s): F32.9 - MAJOR DEPRESSIVE DISORDER, SINGLE EPISODE, UNSPECIFIED Comment: - Continue mirtazapine (8) DVT prophylaxis Comment: - SCDs (9) DNR (do not resuscitate) Comment: Status and Disposition: Inpatient. Anticipate d/c home when medically stable. Attending: Hamilton Charles
[2018-10-13] MEDS ORDERED: cefTRIAXone(*) 1 GM in NS 0.9% 50 ML* 50 ML IVPB SCH (14:00)
[2018-10-13] MEDS: Mirtazapine TAB* 15 MG PO SCH (20:12)
[2018-10-13] MEDS: EFAVIRENZ 600 MG PO SCH (20:12)
[2018-10-13] MEDS: Atorvastatin* 20 MG TAB PO SCH (20:12)
[2018-10-14] MEDS: Cefepime 2 GM in Dextrose(*) 2 GM/50 ML BAG IV SCH ×2 (01:54→13:42)
[2018-10-14] MEDS: Acetaminophen TAB* 325 MG PO PRN ×3 (01:58→19:45)
[2018-10-14 06:28] LABS: ABS Basophils 0.1 10^3/ul (0-0.2); ABS Eosinophils 0.2 10^3/ul (0-0.6); ABS Lymphocytes 2.2 10^3/ul (1.0-4.8); ABS Monocytes 1.3 10^3/ul (0-0.8); Eosinophil % 1.1 %; Hematocrit 31 % (42-52); Hemoglobin 10.1 g/dL (14.0-18.0); Lymphocyte % 11.6 %; Mean Corpuscular HGB Conc 32 g/dL (31-36); Mean Corpuscular Hemoglobin 28 pg (27-31); Mean Corpuscular Volume 85 fL (80-94); Mean Platelet Volume 7.3 fL (7.4-10.4); Platelet Count 314 10^3/uL (150-450); Red Blood Count 3.68 10^6 /uL (4.18-5.48); Red Cell Distribution Width 14 % (10.5-15); White Blood Count 18.7 10^3/uL (3.5-10.8)
[2018-10-14 06:42] LABS: BUN/Creatinine Ratio 11.4 (8-20); EGFR African American 61.4 (>60); EGFR Non-African American 50.7 (>60); Potassium 3.7 mmol/L (3.5-5.0)
[2018-10-14] MEDS: DESCOVY PO SCH (08:01)
[2018-10-14] MEDS: NS 0.9% 1000 ML** 1,000 ML IV SCH ×2 (10:35→19:38)
--- NOTE | 2018-10-14 13:20 | PN ---
Subjective Date of Service: 10/14/18 Interval History: Patient seen and examined. Appears fatigued, remains tachycardic and febrile through the night. Denies chest pain, no complaints of SOB, no abdominal pain. Voiding freely. Family History: Unchanged from Admission Social History: Unchanged from Admission Past Medical History: Unchanged from Admission Objective Active Medications: Acetaminophen (Tylenol Tab*) 650 mg PO Q4H PRN PRN Reason: FEVER/PAIN Last Admin: 10/14/18 01:58 Dose: 650 mg Hydrocodone Bitart/Acetaminophen ([place] 5-325 Tab*) 1 tab PO Q6H PRN PRN Reason: PAIN Atorvastatin Calcium (Lipitor*) 20 mg PO 2100 [facility] Last Admin: 10/13/18 20:12 Dose: 20 mg Cefepime HCl (Maxipime 2 Gm In Dextrose Duplex (*)) 2 gm in 50 mls @ 100 mls/ hr IV Q12H [facility] Last Admin: 10/14/18 01:54 Dose: 100 mls/hr Sodium Chloride (Ns 0.9% 1000 Ml) 1,000 mls @ 75 mls/hr IV PER RATE [facility] Last Admin: 10/14/18 10:35 Dose: 75 mls/hr Levofloxacin/Dextrose (Levaquin 750 Mg Ivpremix(*)) 750 mg in 150 mls @ 100 mls /hr IVPB Q24H [facility]; Protocol Stop: 10/15/18 15:29 Mirtazapine (Remeron Tab*) 15 mg PO BEDTIME [facility] Last Admin: 10/13/18 20:12 Dose: 15 mg Morphine Sulfate (Morphine Inj (Syringe))*) 2 mg IV Q4H PRN PRN Reason: PAIN - SEVERE Pto: Efavirenz 600 (Mg) 600 mg PO BEDTIME [facility] Last Admin: 10/13/18 20:12 Dose: 600 mg Pto: Descovy 200-25 (Mg Tablet 1 Tab) 1 tab PO DAILY [facility] Last Admin: 10/14/18 08:01 Dose: 1 tab Vital Signs - 8 hr 10/14/18 10/14/18 07:20 08:00 Temperature 100.3 F Pulse Rate 109 Respiratory 24 24 Rate Blood Pressure 130/75 (mmHg) O2 Sat by Pulse 96 Oximetry Oxygen Devices in Use Now: None Appearance: alert, mild diaphoresis, fatigued, ill appearing Eyes: No Scleral Icterus, PERRLA Ears/Nose/Mouth/Throat: NL Teeth, Lips, Gums, Mucous Membranes Moist Neck: NL Appearance and Movements; NL JVP, Trachea Midline Respiratory: Symmetrical Chest Expansion and Respiratory Effort, Clear to Auscultation Cardiovascular: NL Sounds; No Murmurs; No JVD, RRR - tachycardic, regular Abdominal: NL Sounds; No Tenderness; No Distention Extremities: No Edema, No Clubbing, Cyanosis Skin: No Rash or Ulcers Neurological: Alert and Oriented x 3 Nutrition: Taking PO's Result Diagrams: 10/14/18 05:50 10/14/18 05:50 Microbiology and Other Data: Microbiology 10/12/18 16:38 Urine Culture - Final Urine Escherichia Coli 10/12/18 18:57 Aerobic Blood Culture - Preliminary Blood Venous No Growth Day 1 Anaerobic Blood Culture - Preliminary No Growth Day 1 10/12/18 18:57 Aerobic Blood Culture - Preliminary Blood Venous No Growth Day 1 Anaerobic Blood Culture - Preliminary No Growth Day 1 Assess/Plan/Problems-Billing Assessment: Mr. Barnett is a 68 yo M with PMH of HIV, depression, HLD, and recurrent nephrolithiasis; who presented to the ED with c/o fever and tachycardia and was found to have sepsis secondary to pyelonephritis. - Patient Problems (1) Pyelonephritis Code(s): N12 - TUBULO-INTERSTITIAL NEPHRITIS, NOT SPCF ACUTE OR CHRONIC SNOMED Code(s): 58177421 Comment: - CT evidence of pyelo on 10/12 - Spoke with Dr. Lorenzo today, significant amount of puss aspirated from left kidney during procedure - Culture positive for eColi, although sensitive to cefepime, patient does not seem to be responding as quickly to treatment - Will add levaquin 750mg x 2 doses based on susceptibilities, discussed with pharmacy, assess for response (2) Sepsis Comment: - Persistent tachycardia with HR in 100's to 120's and fever around 100.3, leukocytosis remains at 18.7, little improvement; currently meeting sepsis criteria again, source, pyelonephritis - Adding levaquin based on susceptibilties - Redraw [place], blood cultures and fluid bolus now, tylenol for fever (3) MEÑO (acute kidney injury) Code(s): N17.9 - ACUTE KIDNEY FAILURE, UNSPECIFIED SNOMED Code(s): 93993136 Comment: - Postrenal, secondary to obstructing stone, minimal improvement since stenting - Continue IVF and monitor renal function daily (4) Nephrolithiasis Code(s): N20.0 - CALCULUS OF KIDNEY SNOMED Code(s): 83003981 Comment: - S/p left ureteral stent placement 10/12/[address] Lorenzo - Continue [place], morphine PRN (5) Depression Code(s): F32.9 - MAJOR DEPRESSIVE DISORDER, SINGLE EPISODE, UNSPECIFIED SNOMED Code(s): 57145341 Comment: - Continue mirtazapine (6) HIV (human immunodeficiency virus infection) Comment: - Most revent CD4 count in 12/2017 was 800 - Continue Effavirenz and Descovy (7) DVT prophylaxis Code(s): [id number] - SNOMED Code(s): 820532361 Comment: - SCDs (8) DNR (do not resuscitate) Comment: Status and Disposition: Inpatient. Guarded. DC home when medically optimized.
[2018-10-14] MEDS ORDERED: NS 0.9% IV ONE (13:31)
[2018-10-14] MEDS: Levofloxacin 750 MG IVPREMIX(* 750 MG/150 ML BAG IVPB SCH (14:43)
[2018-10-14] MEDS: Atorvastatin* 20 MG TAB PO SCH (20:22)
[2018-10-14] MEDS: Mirtazapine TAB* 15 MG PO SCH (20:23)
[2018-10-14] MEDS: EFAVIRENZ 600 MG PO SCH (20:23)
[2018-10-15] MEDS: NS 0.9% 1000 ML** 1,000 ML IV SCH ×2 (02:04→13:45)
[2018-10-15] MEDS: Cefepime 2 GM in Dextrose(*) 2 GM/50 ML BAG IV SCH ×2 (02:07→13:45)
[2018-10-15] MEDS: Acetaminophen TAB* 325 MG PO PRN (02:24)
[2018-10-15] MEDS ORDERED: amLODIPine TAB* 5 MG PO ONE (02:31)
[2018-10-15] MEDS: DESCOVY PO SCH (08:13)
[2018-10-15 08:42] LABS: ABS Eosinophils 0.2 10^3/ul (0-0.6); ABS Lymphocytes 2.1 10^3/ul (1.0-4.8); ABS Monocytes 1.5 10^3/ul (0-0.8); ABS Neutrophils 12.2 10^3/ul (1.5-7.7); Eosinophil % 1.1 %; Hematocrit 32 % (42-52); Hemoglobin 10.4 g/dL (14.0-18.0); Lymphocyte % 13.1 %; Mean Corpuscular HGB Conc 32 g/dL (31-36); Mean Corpuscular Hemoglobin 27 pg (27-31); Mean Corpuscular Volume 85 fL (80-94); Nucleated Red Blood Cells % 0.1; Platelet Count 350 10^3/uL (150-450); Red Blood Count 3.78 10^6 /uL (4.18-5.48); Red Cell Distribution Width 14 % (10.5-15)
[2018-10-15 09:16] LABS: BUN/Creatinine Ratio 11.9 (8-20); Calcium 9.2 mg/dL (8.6-10.3); EGFR African American 64.5 (>60); EGFR Non-African American 53.3 (>60); Potassium 3.5 mmol/L (3.5-5.0)
[2018-10-15] MEDS: Levofloxacin 750 MG IVPREMIX(* 750 MG/150 ML BAG IVPB SCH (14:25)
--- NOTE | 2018-10-15 16:35 | PN ---
Subjective Date of Service: 10/15/18 Interval History: Resting in bed on assessment. Denies flank pain, fever, chills. Reports adequate urine outpatient. Denies cp, palpitations, nausea, vomiting, diarrhea. Noted to be febrile this morning and also continued to be tachycardic. Family History: Unchanged from Admission Social History: Unchanged from Admission Past Medical History: Unchanged from Admission Objective Active Medications: Acetaminophen (Tylenol Tab*) 650 mg PO Q4H PRN PRN Reason: FEVER/PAIN Last Admin: 10/15/18 02:24 Dose: 650 mg Hydrocodone Bitart/Acetaminophen ([place] 5-325 Tab*) 1 tab PO Q6H PRN PRN Reason: PAIN Amlodipine Besylate (Norvasc Tab*) 2.5 mg PO BEDTIME [facility] Atorvastatin Calcium (Lipitor*) 20 mg PO 2100 [facility] Last Admin: 10/14/18 20:22 Dose: 20 mg Cefepime HCl (Maxipime 2 Gm In Dextrose Duplex (*)) 2 gm in 50 mls @ 100 mls/ hr IV Q12H [facility] Last Admin: 10/15/18 13:45 Dose: 100 mls/hr Sodium Chloride (Ns 0.9% 1000 Ml) 1,000 mls @ 75 mls/hr IV PER RATE [facility] Last Admin: 10/14/18 10:35 Dose: 75 mls/hr Sodium Chloride (Ns 0.9% 1000 Ml) 1,000 mls @ 100 mls/hr IV PER RATE [facility] Last Admin: 10/15/18 13:45 Dose: 100 mls/hr Mirtazapine (Remeron Tab*) 15 mg PO BEDTIME [facility] Last Admin: 10/14/18 20:23 Dose: 15 mg Morphine Sulfate (Morphine Inj (Syringe))*) 2 mg IV Q4H PRN PRN Reason: PAIN - SEVERE Pto: Efavirenz 600 (Mg) 600 mg PO BEDTIME [facility] Last Admin: 10/14/18 20:23 Dose: 600 mg Pto: Descovy 200-25 (Mg Tablet 1 Tab) 1 tab PO DAILY [facility] Last Admin: 10/15/18 08:13 Dose: 1 tab Vital Signs - 8 hr 10/15/18 10/15/18 10/15/18 11:04 15:56 16:00 Temperature 99.6 F 99.2 F Pulse Rate 98 117 Respiratory 22 20 Rate Blood Pressure 120/82 147/73 (mmHg) O2 Sat by Pulse 96 99 99 Oximetry Oxygen Devices in Use Now: None Appearance: Comfortable, NAD Eyes: No Scleral Icterus Ears/Nose/Mouth/Throat: Clear Oropharnyx, Mucous Membranes Moist Neck: NL Appearance and Movements; NL JVP Respiratory: Symmetrical Chest Expansion and Respiratory Effort, Clear to Auscultation Cardiovascular: NL Sounds; No Murmurs; No JVD, RRR, No Edema Abdominal: NL Sounds; No Tenderness; No Distention Lymphatic: No Cervical Adenopathy Extremities: No Clubbing, Cyanosis Skin: No Rash or Ulcers Neurological: Alert and Oriented x 3 Nutrition: Taking PO's Result Diagrams: 10/15/18 08:22 10/15/18 08:22 Additional Lab and Data: Laboratory Results - last 24 hr 10/14/18 10/15/18 10/15/18 16:42 08:22 08:22 WBC 16.0 H RBC 3.78 L Hgb 10.4 L Hct 32 L MCV 85 MCH 27 MCHC 32 RDW 14 Plt Count 350 MPV 7.0 L Neut % (Auto) 76.3 Lymph % (Auto) 13.1 [place] % (Auto) 9.2 Eos % (Auto) 1.1 Baso % (Auto) 0.3 Absolute Neuts (auto) 12.2 H Absolute Lymphs (auto) 2.1 Absolute Monos (auto) 1.5 H Absolute Eos (auto) 0.2 Absolute Basos (auto) 0.0 Absolute Nucleated RBC 0.0 Nucleated RBC % 0.1 Sodium 139 Potassium 3.5 Chloride 110 Carbon Dioxide 21 L Anion Gap 8 BUN 16 Creatinine 1.34 H Est GFR ( Amer) 64.5 Est GFR (Non-Af Amer) 53.3 BUN/Creatinine Ratio 11.9 Glucose 101 H Lactic Acid 0.8 Calcium 9.2 Microbiology and Other Data: Microbiology 10/14/18 13:57 Blood Venous Aerobic Blood Culture - Preliminary No Growth Day 1 10/14/18 13:57 Blood Venous Anaerobic Blood Culture - Preliminary No Growth Day 1 10/14/18 14:02 Blood Venous Aerobic Blood Culture - Preliminary No Growth Day 1 10/14/18 14:02 Blood Venous Anaerobic Blood Culture - Preliminary No Growth Day 1 10/12/18 18:57 Blood Venous Aerobic Blood Culture - Preliminary No Growth Day 2 10/12/18 18:57 Blood Venous Anaerobic Blood Culture - Preliminary No Growth Day 2 10/12/18 18:57 Blood Venous Aerobic Blood Culture - Preliminary No Growth Day 2 10/12/18 18:57 Blood Venous Anaerobic Blood Culture - Preliminary No Growth Day 2 10/12/18 16:38 Urine Urine Culture - Final Escherichia Coli Assess/Plan/Problems-Billing Assessment: Mr. Barnett is a 68 yo M with PMH of HIV, depression, HLD, and recurrent nephrolithiasis; who presented to the ED with c/o fever and tachycardia and was found to have sepsis secondary to pyelonephritis. - Patient Problems (1) MEÑO (acute kidney injury) Comment: - Postrenal, secondary to obstructing stone, some improvement since stenting - Continue IVF and monitor renal function daily (2) Nephrolithiasis Comment: - S/p left ureteral stent placement 10/12/[address] Lorenzo - Continue [place], morphine PRN - Denies pain at this time and has not needed prn pain medication (3) Pyelonephritis Comment: - CT evidence of pyelo on 10/12 - Dr. Lorenzo reported significant amount of puss aspirated from left kidney during procedure - Culture positive for eColi, although sensitive to cefepime, patient does not seem to be responding as quickly to treatment - Levaquin added yesterday based on susceptibilities (4) Sepsis Comment: - Persistent tachycardia with HR in 100's. Last recorded fever around 100.5 this morning. - Leukocytosis slight improvement from 18.7 to 16 today. - Lactic acid wnl - Cont levaquin and cefepime based on susceptibilties - Redraw blood cultures - ID consult ordered (5) Depression Comment: - Continue mirtazapine (6) HIV (human immunodeficiency virus infection) Comment: - Most revent CD4 count in 12/2017 was 800 - Continue Effavirenz and Descovy (7) DVT prophylaxis Comment: - SCDs (8) DNR (do not resuscitate) Comment: Status and Disposition: Inpatient. DC home when medically optimized. Attending: Williams Molina
[2018-10-15] MEDS ORDERED: amLODIPine TAB* 5 MG PO SCH (21:00)
[2018-10-15] MEDS: Atorvastatin* 20 MG TAB PO SCH (21:01)
[2018-10-15] MEDS: Mirtazapine TAB* 15 MG PO SCH (21:01)
[2018-10-15] MEDS: EFAVIRENZ 600 MG PO SCH (21:02)
[2018-10-16] MEDS: NS 0.9% 1000 ML** 1,000 ML IV SCH ×2 (02:40→08:24)
[2018-10-16 07:25] LABS: Hematocrit 30 % (42-52); Mean Corpuscular HGB Conc 33 g/dL (31-36); Mean Corpuscular Hemoglobin 28 pg (27-31); Mean Corpuscular Volume 83 fL (80-94); Mean Platelet Volume 6.8 fL (7.4-10.4); Platelet Count 326 10^3/uL (150-450); Red Blood Count 3.63 10^6 /uL (4.18-5.48); Red Cell Distribution Width 14 % (10.5-15)
[2018-10-16 07:28] LABS: ABS Basophils 0.1 10^3/ul (0-0.2); ABS Eosinophils 0.1 10^3/ul (0-0.6); ABS Lymphocytes 2.1 10^3/ul (1.0-4.8); ABS Monocytes 1.6 10^3/ul (0-0.8); Eosinophil % 0.8 %; Lymphocyte % 17.8 %
[2018-10-16 07:46] LABS: BUN/Creatinine Ratio 14.2 (8-20); Calcium 9.1 mg/dL (8.6-10.3); EGFR African American 73.3 (>60); EGFR Non-African American 60.6 (>60); Potassium 3.4 mmol/L (3.5-5.0)
[2018-10-16] MEDS: DESCOVY PO SCH (08:22)
[2018-10-16] MEDS ORDERED: Levofloxacin 750 MG IVPREMIX(* 750 MG/150 ML BAG IVPB SCH (14:30)
--- NOTE | 2018-10-16 18:24 | PN ---
Subjective Date of Service: 10/16/18 Interval History: Patient observed walking in unit without difficulty. On assessment he was lying in bed. Reports he feels much improved today. Reports he is urinating without difficulty. Denies flank pain, abd pain, fever, chills. Family History: Unchanged from Admission Social History: Unchanged from Admission Past Medical History: Unchanged from Admission Objective Active Medications: Acetaminophen (Tylenol Tab*) 650 mg PO Q4H PRN PRN Reason: FEVER/PAIN Last Admin: 10/15/18 02:24 Dose: 650 mg Hydrocodone Bitart/Acetaminophen ([place] 5-325 Tab*) 1 tab PO Q6H PRN PRN Reason: PAIN Atorvastatin Calcium (Lipitor*) 20 mg PO 2100 [facility] Last Admin: 10/15/18 21:01 Dose: 20 mg Sodium Chloride (Ns 0.9% 1000 Ml) 1,000 mls @ 75 mls/hr IV PER RATE [facility] Last Admin: 10/14/18 10:35 Dose: 75 mls/hr Sodium Chloride (Ns 0.9% 1000 Ml) 1,000 mls @ 100 mls/hr IV PER RATE [facility] Last Admin: 10/16/18 08:24 Dose: 100 mls/hr Levofloxacin/Dextrose (Levaquin 750 Mg Ivpremix(*)) 750 mg in 150 mls @ 100 mls /hr IVPB Q24H [facility]; Protocol Last Admin: 10/16/18 15:19 Dose: 100 mls/hr Mirtazapine (Remeron Tab*) 15 mg PO BEDTIME [facility] Last Admin: 10/15/18 21:01 Dose: 15 mg Morphine Sulfate (Morphine Inj (Syringe))*) 2 mg IV Q4H PRN PRN Reason: PAIN - SEVERE Pto: Efavirenz 600 (Mg) 600 mg PO BEDTIME [facility] Last Admin: 10/15/18 21:02 Dose: 600 mg Pto: Descovy 200-25 (Mg Tablet 1 Tab) 1 tab PO DAILY [facility] Last Admin: 10/16/18 08:22 Dose: 1 tab Vital Signs - 8 hr 10/16/18 10/16/18 10/16/18 11:23 15:22 16:00 Temperature 99.0 F 98.9 F Pulse Rate 93 95 Respiratory 18 18 Rate Blood Pressure 141/72 139/73 (mmHg) O2 Sat by Pulse 99 99 99 Oximetry Oxygen Devices in Use Now: None Appearance: Comfortable, NAD Eyes: No Scleral Icterus Ears/Nose/Mouth/Throat: Clear Oropharnyx, Mucous Membranes Moist Respiratory: Symmetrical Chest Expansion and Respiratory Effort, Clear to Auscultation Cardiovascular: NL Sounds; No Murmurs; No JVD, RRR, No Edema Abdominal: NL Sounds; No Tenderness; No Distention, - - No CVA tenderness Lymphatic: No Cervical Adenopathy Extremities: No Edema Skin: No Rash or Ulcers Neurological: Alert and Oriented x 3, NL Muscle Strength and Tone Nutrition: Taking PO's Result Diagrams: 10/16/18 07:14 10/16/18 07:14 Additional Lab and Data: Laboratory Results - last 24 hr 10/16/18 10/16/18 07:14 07:14 WBC 12.0 H RBC 3.63 L Hgb 10.0 L Hct 30 L MCV 83 MCH 28 MCHC 33 RDW 14 Plt Count 326 MPV 6.8 L Neut % (Auto) 66.9 Lymph % (Auto) 17.8 [place] % (Auto) 13.8 Eos % (Auto) 0.8 Baso % (Auto) 0.7 Absolute Neuts (auto) 8.0 H Absolute Lymphs (auto) 2.1 Absolute Monos (auto) 1.6 H Absolute Eos (auto) 0.1 Absolute Basos (auto) 0.1 Absolute Nucleated RBC 0.0 Nucleated RBC % 0.0 Sodium 138 Potassium 3.4 L Chloride 109 Carbon Dioxide 20 L Anion Gap 9 BUN 17 Creatinine 1.20 H Est GFR ( Amer) 73.3 Est GFR (Non-Af Amer) 60.6 BUN/Creatinine Ratio 14.2 Glucose 104 H Calcium 9.1 Microbiology and Other Data: Microbiology 10/14/18 14:02 Blood Venous Aerobic Blood Culture - Preliminary No Growth Day 2 10/14/18 14:02 Blood Venous Anaerobic Blood Culture - Preliminary No Growth Day 2 10/14/18 13:57 Blood Venous Aerobic Blood Culture - Preliminary No Growth Day 2 10/14/18 13:57 Blood Venous Anaerobic Blood Culture - Preliminary No Growth Day 2 10/12/18 18:57 Blood Venous Aerobic Blood Culture - Preliminary No Growth Day 3 10/12/18 18:57 Blood Venous Anaerobic Blood Culture - Preliminary No Growth Day 3 10/12/18 18:57 Blood Venous Aerobic Blood Culture - Preliminary No Growth Day 3 10/12/18 18:57 Blood Venous Anaerobic Blood Culture - Preliminary No Growth Day 3 10/12/18 16:38 Urine Urine Culture - Final Escherichia Coli Assess/Plan/Problems-Billing Assessment: Mr. Barnett is a 68 yo M with PMH of HIV, depression, HLD, and recurrent nephrolithiasis; who presented to the ED with c/o fever and tachycardia and was found to have sepsis secondary to pyelonephritis. - Patient Problems (1) MEÑO (acute kidney injury) Comment: - Postrenal, secondary to obstructing stone, some improvement since stenting - Continue IVF and monitor renal function daily (2) Nephrolithiasis Comment: - S/p left ureteral stent placement 10/12/[address] Lorenzo - Continue [place], morphine PRN - Denies pain at this time and has not needed prn pain medication (3) Pyelonephritis Comment: - CT evidence of pyelo on 10/12 - Dr. Lorenzo reported significant amount of puss aspirated from left kidney during procedure - Culture positive for eColi, although sensitive to cefepime, patient did not seem to be responding as quickly to treatment, therefore, levaquin added 10/14 based on susceptibilities - Yesterday Cefepime discontinued and Levaquin continued. - I have also ordered an ID consult (4) Sepsis Comment: - Persistent tachycardia improving has he was in low 100s and is now in low 90s. - Last recorded fever around 100.5 on 10/15. - Leukocytosis improving - Cont levaquin - Redraw blood cultures - ID consult ordered (5) Depression Comment: - Continue mirtazapine (6) HIV (human immunodeficiency virus infection) Comment: - Most revent CD4 count in 12/2017 was 800 - Continue Effavirenz and Descovy (7) DVT prophylaxis Comment: - SCDs (8) DNR (do not resuscitate) Comment: Status and Disposition: Inpatient. DC home when medically optimized. Attending: Williams Molina
[2018-10-16] MEDS ORDERED: Potassium Chlor TAB* 20 MEQ TAB.ER PO ONE (18:25)
[2018-10-16] MEDS: EFAVIRENZ 600 MG PO SCH (20:29)
[2018-10-16] MEDS: Atorvastatin* 20 MG TAB PO SCH (20:30)
[2018-10-16] MEDS: Mirtazapine TAB* 15 MG PO SCH (20:30)
[2018-10-17] MEDS: Acetaminophen TAB* 325 MG PO PRN (00:28)
[2018-10-17] MEDS: NS 0.9% 1000 ML** 1,000 ML IV SCH (00:34)
[2018-10-17 06:30] LABS: Hematocrit 30 % (42-52); Mean Corpuscular HGB Conc 33 g/dL (31-36); Mean Corpuscular Hemoglobin 28 pg (27-31); Mean Corpuscular Volume 83 fL (80-94); Mean Platelet Volume 6.8 fL (7.4-10.4); Platelet Count 340 10^3/uL (150-450); Red Blood Count 3.61 10^6 /uL (4.18-5.48); Red Cell Distribution Width 14 % (10.5-15); White Blood Count 11.1 10^3/uL (3.5-10.8)
[2018-10-17 06:49] LABS: ABS Eosinophils 0.2 10^3/ul (0-0.6); ABS Lymphocytes 2.6 10^3/ul (1.0-4.8); ABS Monocytes 1.6 10^3/ul (0-0.8); ABS Neutrophils 6.7 10^3/ul (1.5-7.7); BUN/Creatinine Ratio 14.5 (8-20); EGFR African American 75.5 (>60); EGFR Non-African American 62.4 (>60); Eosinophil % 1.5 %; Lymphocyte % 23.5 %; Nucleated Red Blood Cells % 0.2; Potassium 3.6 mmol/L (3.5-5.0)
[2018-10-17] MEDS: DESCOVY PO SCH (08:46)
--- NOTE | 2018-10-17 16:27 | CONS ---
CONSULTATION REPORT: DATE OF CONSULT: 10/17/18 PRIMARY CARE PROVIDER: Dr. Chapin Hudson. PROVIDER REQUESTING CONSULTATION: Shanna Lau NP. CONSULTING SERVICE: Infectious Disease. PROVIDER: Mable Wolfe NP ATTENDING PHYSICIAN: Dr. Yovani Kaur* (dictated by Mable Wolfe NP). REASON FOR CONSULT: E. coli pyelonephritis. IMPRESSION: 1. Escherichia coli pyelonephritis. The patient is status post cystoscopy and left stent insertion on 10/12/18. He will need to have a lithotripsy in the near future with Dr. Lorenzo. He has intermittently continued to have low-grade fevers, which is excepted for a few days with someone who has pyelonephritis. He has been receiving Levaquin IV in the hospital. Two sets of blood cultures with no growth to date on both day 4 and day 2. Urine culture showed Escherichia coli greater than a 100,000. 2. Acute kidney injury. Resolved. 3. Human immunodeficiency virus. Continue on his Efavirenz and Descovy. His HIV viral load was undetectable in June 2018 and his last CD4 count in December 2017 was 810. PLAN: Recommend changing to Levaquin 500 mg PO for 14 days. HISTORY OF PRESENT ILLNESS: Mr. Barnett is a 68-year-old male with past medical history significant for HIV, depression, hyperlipidemia, and renal calculi, who states that he had been in his usual state of health. He was having left flank pain with associated nausea, vomiting for approximately a week that had improved, but that became significantly worse prompting his presentation to the emergency room. He presented to the emergency room on 10/12, at which point he was found to have a 6 to 7 mm obstructing renal calculus in the proximal left ureter. He was noted to have a white blood cell count of 13,000. He was discharged from the emergency room and saw Dr. Lorenzo as an outpatient, who recommended that he come to the hospital for outpatient procedure later that day. Upon returning to the hospital and in the preop area , was found to have a fever of 101 and tachycardic. Prior to his surgery, his temperature had climbed to 104.4. He was admitted for left hydronephrosis with an obstructing left proximal ureter calculus and bilateral renal calculi. He underwent a cystoscopy with a left retrograde pyelogram and left stent insertion with Dr. Lorenzo on 10/12/18. According to the operative note, there was approximately 20 cc of purulent urine from the left kidney prior to the stent insertion. During his stay, he intermittently had some low-grade temperatures with the last one being on 10/16/18. His leukocytosis has been trending down. Creatinine has also been improving during his stay. The patient was initially placed on cefepime and then Levaquin was added when he continued to have intermittent fevers, he was downgraded to just Levaquin on . He denies fevers, chills, diarrhea, constipation, urinary symptoms such as urgency, frequency, dysuria. He denies any flank pain or back pain. PAST MEDICAL HISTORY: 1. HIV. 2. Depression. 3. Hyperlipidemia. 4. Renal calculi. PAST SURGICAL HISTORY: Status post multiple lithotripsies and bilateral stent placements. MEDICATIONS: Home Medications: 1. Vitamin D3 1000 units by mouth daily. 2. Vitamin C 500 mg by mouth daily. 3. Remeron 15 mg by mouth daily. 4. Multivitamin 1 tablet by mouth daily. 5. Efavirenz 600 mg by mouth daily. 6. Descovy 1 tablet by mouth daily. 7. Aspirin 81 mg by mouth daily. 8. Atorvastatin 20 mg by mouth daily. 9. Fish oil 1200 mg by mouth daily. Hospital Medications: 1. Acetaminophen 650 mg by mouth every 4 hours as needed for fever or pain. 2. Atorvastatin 20 mg by mouth daily. 3. Cutler 5/325 one tablet by mouth every 6 hours as needed for pain. 4. Levaquin 750 mg IV every 24 hours. 5. Remeron 15 mg by mouth daily at bedtime. 6. Morphine 2 mg IV every 4 hours as needed for pain. 7. Descovy 200/25 mg 1 tablet my mouth daily. 8. Efavirenz 600 mg by mouth daily. 9. Sodium chloride intravenously 100 mL an hour. ALLERGIES: No known drug allergies. FAMILY HISTORY: The patient denies any family history of coronary artery disease or cancer. Mother with a history of diabetes mellitus, who passed at age 71 from renal failure. No family history of recurrent or resistant infections. SOCIAL HISTORY: He rarely drinks alcohol. He denies recreational drug use. He is a former smoker quitting in 2017, prior to that he had a one-half pack a day smoking history for 50 years. REVIEW OF SYSTEMS: I performed a 10-point review of systems. All the pertinent positives and negatives are mentioned in the history of present illness. The remaining review of systems are negative. He denies any recent travel. PHYSICAL EXAM: Vital Signs: Temperature 98.8, heart rate 89, respiratory rate 16, O2 sat 98% on room air, blood pressure 126/65. General Appearance: The patient is alert, pleasant, and appears to be in no acute distress. Head: Normocephalic, atraumatic. ENT: Pupils are equal and reactive to light. Extraocular movements are intact. Mucous membranes are moist. There is no thrush. Neck: Supple. No lymphadenopathy. Neurologic: Alert and oriented x4. Cranial nerves II through XII are grossly intact. Cardiovascular: Heart rate is regular. No murmurs, rubs, or gallops heard. Respiratory: No accessory muscle use. Lungs are clear to auscultation bilaterally. Abdomen: Bowel sounds present. Abdomen soft, nontender, nondistended. There is no CVA tenderness bilateral. Extremities: No lower extremity edema. Musculoskeletal : No clubbing or cyanosis noted. Exhibits good strength in all extremities. Psychological: Calm and cooperative. Skin: No rashes or abnormalities seen. DIAGNOSTIC STUDIES/LAB DATA: Sodium 138, potassium 3.6, chloride 110, CO2 20, BUN 17, creatinine 1.17, glucose 111. White blood cell count 11.1, hemoglobin 10.0, hematocrit 30, platelet count 340. Please see impression and recommendations outlined above. Thank you for asking use to see Mr. Barnett in consultation. Recommendations have been discussed with Shanna Lau NP; and the case has been discussed with my attending, Dr. Kaur, who agrees with the plan of care. Reviewed by BEKA STRATTON 10/18/18 0827 [id number]/[facility] #: [id number] TY
[2018-10-17 17:18] VITALS: BP 141/74
--- NOTE | 2018-10-17 21:42 | DS ---
CC: Dr. Hudson; Dr. Lorenzo; Dr. Yovani Kaur* DISCHARGE SUMMARY: DATE OF ADMISSION: 10/13/18. DATE OF DISCHARGE: 10/17/18. PRIMARY CARE PHYSICIAN: Dr. Hudson. UROLOGIST: Dr. Lorenzo. OUTPATIENT INFECTIOUS DISEASE: Dr. Yovani Kaur. ATTENDING PHYSICIAN: Dr. Shania Bautista* (dictated by Davon Hui NP). PRIMARY DIAGNOSES: 1. Acute kidney injury. 2. Nephrolithiasis. 3. Pyelonephritis. 4. Sepsis. 5. Depression. 6. Human immunodeficiency virus. HISTORY OF PRESENT ILLNESS/HOSPITAL COURSE: Mr. Barnett is a 68-year-old male with past medical history significant for HIV, renal calculi, hyperlipidemia who presented to the hospital for an elective renal stent placement with Dr. Lorenzo. Please see history and physical dictated by TOO Long, for complete summary of the events leading up to this hospitalization, but in short, the patient was seen in the emergency department the day before his presentation for the renal stent. While in tachy, the patient was noted to be febrile, tachycardic. Therefore, hospitalists were asked to admit given the patient's sepsis criteria. The patient met sepsis criteria on arrival to the hospital as he had elevated heart rate, fever, and sores. The patient was started on ceftriaxone, received IV bolus, and it was pancultured. During this hospitalization, patient has had routine lab work, which revealed leukocytosis, which has been trending down since his admission. He had routine vital signs, which revealed tachycardia and occasional low-grade fever with highest of 100.6. The patient's urine culture grew E. coli; therefore, he was started on cefepime due to sensitivity. The patient continued to have intermittent fevers and tachycardia; therefore, Levaquin was added. Later, the patient was narrowed to Levaquin only. Given the patient's illness and fevers, infectious disease was consulted who evaluated the patient and recommended Levaquin p.o. 500 mg daily for 2 weeks. The patient is stable for discharge home today. The patient's tachycardia has improved as he is in the low 90s. We suspect the patient will continue to have intermittent fevers as this is true for people with pyelonephritis. REVIEW OF SYSTEMS: A 14-point review of systems was completed and all were negative. PHYSICAL EXAMINATION: Vital Signs: Temp 97.3, HR 88, RR 16, O2 saturation 99% on room air, BP 141/71. General: Mr. Barnett is a 68-year-old male who is sitting in bed. Appears to be in no acute distress. Appears to be stated age. HEENT: EOMs intact. PERRLA. Oral mucosa is moist without lesions. Posterior pharynx is clear. Neck: Supple. No lymphadenopathy. Respiratory: Lungs are clear to auscultation. No wheezes, rhonchi, or rubs. Good aeration. Cardiac: S1, S2 present. No murmurs, rubs, or gallops. Regular rate and rhythm. Abdomen: Soft, nontender. Bowel sounds normoactive. No CVA tenderness. Extremities: No edema. No clubbing or cyanosis. Pedal pulses 2+ bilaterally. Musculoskeletal: No pain or deformities. Skin: Skin is grossly intact. Neuro: Neuro exam is grossly intact with no focal deficits or weakness noted. LABORATORY DATA: WBC 11.1, hemoglobin 10, hematocrit 30, platelets 140. Sodium 138, potassium 3.6, chloride 110, carbon dioxide 20, BUN 17, creatinine 1.17, glucose 111. DISCHARGE PLANS/FOLLOWUP: 1. Nephrolithiasis: The patient is status post left ureteral stent placement on 10/12/[address] Lorenzo. The patient had p.r.n. pain medications while he was here, but he did not need it as he has not experienced any pain since stent placement. The patient was not discharged with pain medications at this time. We discussed these [id number] medications if needed. 2. Pyelonephritis: On a CT obtained on 10/12/18, there was evidence of pyelonephritis. In addition, there is report of pus aspirated from left kidney during his procedure. As mentioned above, the patient's urine cultures did grow E. coli, which was susceptible to cefepime. The patient did not respond well; therefore, he has been discharged on Levaquin 500 mg p.o. daily for 1 week. 3. Sepsis: On admission, the patient met sepsis criteria with an elevated heart rate and fever in addition to source. Leukocytosis is improving as of today. The patient's blood cultures have been negative. Urine culture grew E. coli. The patient is on appropriate antibiotics. Tachycardia and fever have improved. ID is consulting and agreed with discharge. 4. MEÑO: Initially, the patient's creatinine was elevated at 1.26, which is suspected to be post meal secondary to obstructing stone. The patient's creatinine has greatly improved with IV fluid and stent placement and it is now normal at 1.17. 5. Depression: The patient should continue his home medications as same. 6. HIV: The patient should continue his home medications as same and follow up with Dr. Kaur as previously recommended. 7. Followup: The patient is to follow up with Dr. Kaur as mentioned above. The patient should follow up with Dr. Lorenzo for followup regarding stent and kidney stone. The patient has been encouraged to call Dr. Lorenzo's office tomorrow to make a followup appointment and the patient stated understanding. In addition, the patient should follow up with his primary care provider within 1 to 2 weeks. 8. Education: The patient is educated on signs and symptoms of new or worsening condition and when to return to the emergency department. Patient stated understanding. TIME SPENT: Approximately 40 minutes were spent on this discharge, greater than half of the time was spent [id number] with the patient discussing discharge plans and instructions. This is a summarized report of a complex medical history and hospital stay. For further details, please see the entire medical record. This plan was discussed with my attending, Dr. Shania Bautista, who is in agreement with my plan of care. DAVON HUI, TOO [id number]/[facility] [place] #: [id number] TY
== END 2018-10-17 16:50 | disposition home or self-care (01) | DRG 854 ==
LOC: OR 13:46 → MED 14:00 → OBSVTOIN 10-13 14:00
PROVIDERS: ADMIT Urology; ATTEND Internal Medicine
PROC: BT1FYZZ Fluoroscopy of Left Kidney, Ureter and Bladder using Other Contrast (ICD-10-PCS; 2018-10-12)
PROC: 0T778DZ Dilation of Left Ureter with Intraluminal Device, Via Natural or Artificial Opening Endoscopic (ICD-10-PCS; principal; 2018-10-12 17:00)
DX: A41.9 Sepsis, unspecified organism (principal); N17.9 Acute kidney failure, unspecified; N39.0 Urinary tract infection, site not specified; F33.9 Major depressive disorder, recurrent, unspecified; N13.6 Pyonephrosis; N20.0 Calculus of kidney; E78.5 Hyperlipidemia, unspecified; Z21 Asymptomatic human immunodeficiency virus [HIV] infection status; B96.20 Unspecified Escherichia coli [E. coli] as the cause of diseases classified elsewhere; Z66 Do not resuscitate; Z79.82 Long term (current) use of aspirin; Z79.899 Other long term (current) drug therapy; Z87.891 Personal history of nicotine dependence; Z83.3 Family history of diabetes mellitus; Z84.1 Family history of disorders of kidney and ureter; Z87.442 Personal history of urinary calculi
CPT/HCPCS: 36415; 74018; 74420; 80048; 83605; 85025; 85610; 87040; 87077; 87086; 87186; A9270-GY; C1876; G0378; J0692; J0696; J1100; J1580; J2250; J2704; J3010

== ENCOUNTER → 2018-11-10 06:49 | Day surgery (SDC) | payer MEDICARE, BC ==
[~2018-11-10 06:49] MED LIST changes: -Acetaminophen TAB* 325 MG PO PRN; -Buffered Lidocaine 0.9% SYRIN* 5 ML/SYR SYRINGE INTRADERM ONE; +Buffered Lidocaine 1% SYRIN* 1 ML/SYRINGE INTRADERM ONE; -Dexamethasone IV* 4 MG/ML 1 ML (4 MG) ONE; -DiMENhydriNATE IV* 50 MG/ML VIAL IV PUSH PRN; -Famotidine IV* 10 MG/ML 2 ML (20 mg) ONE; -Furosemide IV* 10 MG/ML 2 ML VIAL (20 MG) ONE; +Gentamicin ADULT (*) 160 MG in NS 0.9% 100 ML* 100 ML IVPB ONE; -HYDROcodone/ACETAMIN 5-325 MG* 1 TAB PO PRN; +Iohexol 180 (CONTRAST) 10 ML SDV IV ONE; +Lactated Ringers 1000 ML Bag* 1,000 ML IV SCH; -Levalbuterol 1.25MG/0.5ML NEB INH PRN; -Midazolam* 1 MG/ML 2 ML VIAL (2 MG) ONE; -Ondansetron INJ* 2 MG/ML VIAL IV PRN; -PROCHLORPERAZINE INJ 5 MG/ML 2 ML VIAL IV PRN; -Propofol* 10 MG/ML 20 ML BTL IV PUSH ONE; +Propofol* 10 MG/ML 20 ML BTL ONE; +Sodium Citrate/Citric Acid* 15 ML UDC ONE; +Sodium Citrate/Citric Acid* 15 ML UDC PO ONE; -diPHENhydraMINE IV* 50 MG/ML 1 ml VIAL (BENADRYL) IV PRN
--- NOTE | 2018-11-10 10:37 | OP ---
CC: Dr. Chapin Hudson; Dr. Yovani Kaur; Dr. Angel Lorenzo OPERATIVE REPORT: DATE OF OPERATION: 11/10/18 DATE OF : 54 SURGEON: Dr. Lorenzo. ANESTHESIOLOGIST: Dr. Corrigan. ANESTHESIA: General. PRE-OP DIAGNOSES: 1. Obstructing calculus, left ureter. 2. Left renal calculi. 3. Left hydronephrosis. 4. Recent urosepsis. POST-OP DIAGNOSES: 1. Obstructing calculus, left ureter. 2. Left renal calculi. 3. Left hydronephrosis. 4. Recent urosepsis. OPERATIVE PROCEDURES: Cystoscopy, left stent removal, left retrograde pyelogram, left ureteroscopy a nd brett lithotripsy of calculus of left ureter, left pyeloscopy, and removal of left renal calculus and left stent insertion. COMPLICATIONS: None. STENT USED: A 7-Mosotho stent, left ureter. OPERATIVE FINDINGS: 1. Mild strictures, bulbar urethra. 2. Fairly large, approximately 10 to 12 mm, calculus impacted in left proximal ureter with significa nt surrounding edema and inflammation. 3. Left renal calculus. POSTOPERATIVE CONDITION: Stable. INDICATIONS: Pankaj Barnett is a 68-year-old gentleman with a history of recurrent bilateral renal calculi. He had undergone urgent left stent insertion for a large obstructing left ureteral calculus , which resulted in urosepsis. He is now being brought in for treatment of the calculus. In [facility], he does have multiple bilateral renal calculi. DESCRIPTION OF PROCEDURE: After induction of general anesthesia, the patient was placed in dorsal li thotomy position. Sequential compression devices were in place and functioning. Initial cystoscopy revealed mild strictures in the bulbar urethra with mild enlargement of the prostate and a normal-gunjan earing bladder. The previously placed stent was removed. Retrograde pyelogram revealed left hydrone phrosis. A 6-Mosotho semirigid ureteroscope was advanced into the left ureter. In the proximal urete r, there was a fairly large, 10 to 12 mm, calculus noted to be impacted and was actually digging into the wall of the ureter. This was carefully disengaged and once this was done, I could use a 550 angel jus holmium laser to break up the calculus. The calculus was broken up into multiple small fragments . One of the larger pieces migrated into the renal pelvis. Next, pyeloscopy was performed. The large fragment in the renal pelvis was identified and engaged us ing a 3-prong grasper and removed and sent for analysis. There were some smaller fragments also in th e renal pelvis which were also removed. The patient also has a known lower pole calculus, which I did not attempt to remove at this time and which may require lithotripsy at a later date. After successful completion of the ureteroscopy and pyeloscopy, a 7-Mosotho stent was introduced and p ositioned under fluoroscopy with good proximal and distal positioning obtained. The patient tolerate d the procedure satisfactorily and was transferred back to the recovery area in stable condition. [id number]/[facility] #: [id number]
[2018-11-10 11:05] LABS: Hematocrit 37 % (42-52); Hemoglobin 11.8 g/dL (14.0-18.0); Mean Corpuscular HGB Conc 32 g/dL (31-36); Mean Corpuscular Hemoglobin 27 pg (27-31); Mean Corpuscular Volume 85 fL (80-94); Mean Platelet Volume 7.6 fL (7.4-10.4); Platelet Count 197 10^3/uL (150-450); Red Cell Distribution Width 15 % (10-15); White Blood Count 6.3 10^3/uL (3.5-10.8)
[2018-11-10 11:23] LABS: BUN/Creatinine Ratio 14.7 (8-20); Calcium 9.2 mg/dL (8.6-10.3); EGFR African American 88.4 (>60); EGFR Non-African American 73.1 (>60); Magnesium 1.9 mg/dL (1.9-2.7); Potassium 4.1 mmol/L (3.5-5.0)
--- NOTE | 2018-11-10 12:02 | CONS ---
CC: Dr. Hudson; Dr. Lorenzo; Dr. Corrigan from Anesthesiology; Dr. Queen, Cardiology; Dr. Paul, Cardiology * CONSULT REPORT: DATE OF CONSULT: 11/10/18 PRIMARY CARE PROVIDER: Dr. Hudson. REASON FOR CONSULTATION: New postoperative development of right bundle branch block. This consultation was requested by Dr. Corrigan from Anesthesiology. CHIEF COMPLAINT: "Feeling fine." HISTORY OF PRESENT ILLNESS: Pankaj Barnett is a 68-year-old male with history of recurrent syncope and recurrent renal calculi, who is now status post cystoscopy for left ureteral calculus performed by Dr. Lorenzo. Intraoperatively , he was noted to have right bundle-branch block, which was compared with prior telemetry strips and was new. An EKG proved that it was right bundle branch block. For my review of the patient's medical records, he had a Holter monitor in May of 2018 for his syncopal episodes and that showed a narrow complex QRS. The patient currently feels well. Denies any chest pain, shortness of breath. A consultation was requested in regards to that. PAST MEDICAL HISTORY: 1. History of bilateral recurrent renal calculi. 2. History of HIV positive. 3. Depression. 4. High cholesterol. 5. History of syncope in the past. MEDICATIONS: At home include: 1. Vitamin D3 1 tablet daily. 2. Vitamin C 500 mg daily. 3. Remeron 15 mg at bedtime. 4. Multivitamin 1 tablet daily. 5. Levaquin 500 mg daily. 6. Efavirenz 600 mg at bedtime. 7. Descovy 200/25 one tablet q.a.m. 8. Aspirin 81 mg daily. 9. Atorvastatin 20 mg daily. ALLERGIES: No known drug allergies. FAMILY HISTORY: Father with renal failure history at the age of 71. SOCIAL HISTORY: The patient quit smoking in 2017. He has a history of smoking 25 pack years. He drinks alcohol rarely. He denies any drug use. He is and his surrogate decision maker is his partner, Sly Dudley. REVIEW OF SYSTEMS: Please see history of present illness. All the remaining 12 systems were reviewed with the patient and were otherwise negative. PHYSICAL EXAM: Blood pressure of 112/82, heart rate of 87 and regular, respiratory rate of 16, oxygen saturation 99% on room air, temperature 98.1. General: The patient is a pleasant 68-year-old male who in in no acute distress. Alert, awake, and oriented x3. HEENT: Head: Atraumatic, normocephalic. Eyes: Pupils are equal and reactive to light and accommodation. Oropharynx clear. Mucosa moist. Neck: Supple. No JVD. No bruits bilaterally. Cardiovascular: Regular rate and rhythm. No murmur. Respiratory: Clear to auscultation bilaterally. Abdomen: Soft, nontender. Bowel sounds are present in all 4 quadrants. Extremities: There is no edema. Pulses are +2 bilaterally. No clubbing or cyanosis. Neuro Evaluation: Speech is clear. Cranial nerves II through XII grossly intact. Motor strength is 5/5 bilaterally. Psychiatric Evaluation: The patient is pleasant, cooperative with evaluation, oriented x3. LABORATORY DATA: Pending at the time of dictation. ASSESSMENT AND PLAN: Mr. Barnett presents with new right bundle-branch block postoperatively after cystoscopy. The patient is otherwise asymptomatic. I discussed the case with Dr. Paul from Cardiology, who will see the patient in consultation. Troponins, basic metabolic panel with lytes including magnesium as well as transthoracic echocardiogram were ordered. Thank you very much for allowing our service to see your patient in consultation. We will follow up with the patient as needed. [id number]/[facility] #: [id number] [facility] CENTERVamshi
[2018-11-10 12:29] VITALS: BP 122/80
--- NOTE | 2018-11-10 13:33 | CONSULT ---
Subjective Date of Service: 11/10/18 Interval History: Consult Date: 11/10/18 Provider requesting consult: Hospitalist PMD: Dr. Hudson Computer Applications Developer: Dr. Queen CC: Elective procedure Reason for consult: Newly discovered RBBB HISTORY OF PRESENT ILLNESS: Pankaj Barnett is a 68-year-old man with a history as below. He is status post cystoscopy for left ureteral calculus performed by Dr. Lorenzo. It was uncomplicated. He was noted to have a new bundle branch block when hooked on monitoring. He has no prior diagnosis of this. He has no unexplained syncope, chest discomfort or dyspnea. He has longstanding vasovagal episodes dating back almost 40 years and has been evaluated by Dr. Queen in the past. He does not actually lose consciousness and can abort syncope when he recognizes the prodrome. PAST MEDICAL HISTORY: 1. History of bilateral recurrent renal calculi. 2. History of HIV positive 30+ year 3. Depression. 4. High cholesterol. 5. History of vasovagal episodes 40+ years can abort syncope when feels prodrome 6. COPD, mild MEDICATIONS: At home include: 1. Vitamin D3 1 tablet daily. 2. Vitamin C 500 mg daily. 3. Remeron 15 mg at bedtime. 4. Multivitamin 1 tablet daily. 5. Levaquin 500 mg daily. 6. Efavirenz 600 mg at bedtime. 7. Descovy 200/25 one tablet q.a.m. 8. Aspirin 81 mg daily. 9. Atorvastatin 20 mg daily. ALLERGIES: No known drug allergies. FAMILY HISTORY: Father with renal failure history at the age of 71. SOCIAL HISTORY: The patient quit smoking in 2017. He has a history of smoking 25 pack years. He drinks alcohol rarely. He denies any drug use. He is and his surrogate decision maker is his partner, Sly Dudley. Works as an senior project accountant at [employer] Active Medications: Citric Acid/Sodium Citrate (Bicitra*) 15 ml PO ONCE ONE Stop: 11/10/18 06:01 Last Admin: 11/10/18 07:32 Dose: 15 ml Fentanyl Citrate (Fentanyl*) 25 mcg IV Q5M PRN PRN Reason: PAIN - MODERATE Lactated Ringer's (Lactated Ringers 1000 Ml Bag*) 1,000 mls @ 125 mls/hr IV PER RATE CRISTIAN Last Admin: 11/10/18 07:32 Dose: 125 mls/hr Lidocaine/Sodium Bicarbonate (Buffered Lidocaine 1% Syrin*) 0.2 ml INTRADERM ONCE ONE Stop: 11/09/18 13:19 Last Admin: 11/10/18 07:32 Dose: 0.2 ml Naloxone HCl (Narcan*) 0.08 mg IV Q2M PRN PRN Reason: severe induced resp depression Home Medications: Atorvastatin* 20 mg PO BEDTIME 10/12/18 [History Confirmed 11/10/18] Christopher Aspirin EC Low Dose 81 MG 1 tab PO QAM 10/12/18 [History Confirmed ] Descovy 200-25 mg Tablet 1 tab PO QAM 10/12/18 [History Confirmed 11/10/18] Efavirenz 600 mg PO BEDTIME 10/12/18 [History Confirmed 11/10/18] Multivitamin 1 tab PO QAM 10/12/18 [History Confirmed 11/10/18] Remeron 15 mg PO BEDTIME 10/12/18 [History Confirmed 11/10/18] Vitamin C 500 tab PO DAILY 10/12/18 [History Confirmed 11/10/18] Vitamin D3 1 tab PO QAM 10/12/18 [History Confirmed 11/10/18] Levofloxacin TAB* [Levaquin TAB*] 500 mg PO SEE INSTRUCTIONS 11/07/18 [History Confirmed 11/10/18] Review of Systems - Measurements Intake and Output: Intake and Output Last 24 Hours 11/08/18 11/09/18 11/10/18 11/11/18 06:59 06:59 06:59 06:59 Intake Total 1050 Balance 1050 Weight 154 lb 154 lb Intake: IV Fluids 1050 LR 900 NS 100ML, Gentamycin 100 160MG ROCEPHIN 2 GM 50 - Review of Systems Constitutional Symptoms: Negative: Weight Gain, Weight Loss, Weakness, Fatigue, Fever Dermatology: Negative: Skin Lesions, Skin Lumps HEENT: Negative: Change in Hearing, Vertigo Eyes: Negative: Change in Vision, Double Vision Thyroid: Negative: Cold Intolerance, Palpitations, Weight Loss, Weight Gain Pulmonary: Positive: COPD Negative: Respiratory Distress, Shortness of Breath, Home Oxygen Cardiology: Negative: Chest Pain, Shortness of Breath, Palpitations, Swelling of Ankles, Peripheral Vascular Dis, Edema, Claudication, Paroxysmal Nocturnal Dyspnea, Orthopnea Gastroenterology: Negative: Blood in Stools, Change in Bowel Habits, Haematemesis, Melena Genital - Urinary: Negative: Dysuria, Hematuria Musculoskeletal: Negative: Joint Pain, Joint Stiffness, Arthritis Endocrinology: Negative: Obesity, Diabetes, Polydipsia, Polyuria Hematologic/Lymphatic: Negative: Hx Lymphoma, Use of Anticoagulant, Use of Antiplatelet Drugs Neurology: Negative: Headaches, Diplopia, Dizziness, Change in Balancing, Change in Coordination, Change in Memory, Change in Speech, Change in Sphincter Function, Change in Walking, Hx of Stroke\TIA, Hx Seizures Psychiatry: Negative: Unusual Anxiety, Suicidal Ideation Allergic/Immunologic: Positive: Hx HIV Negative: Hx Anaphylaxis, Hx Angioedema Review of Systems Statement: All other review of systems negative, unless stated above. Objective Vital Signs: Temp Pulse Resp BP Pulse Ox 97.3 F 93 15 122/80 98 11/10/18 09:35 11/10/18 13:00 11/10/18 13:00 11/10/18 13:00 11/10/18 13:00 Oxygen Devices in Use Now: None Appearance: nad, pleasant Ears/Nose/Mouth/Throat: Clear Oropharnyx, Mucous Membranes Moist Neck: NL Appearance and Movements; NL JVP, Trachea Midline Respiratory: Symmetrical Chest Expansion and Respiratory Effort, Clear to Auscultation Cardiovascular: NL Sounds; No Murmurs; No JVD, RRR, No Edema Abdominal: NL Sounds; No Tenderness; No Distention Extremities: No Edema Skin: No Rash or Ulcers Neurological: Alert and Oriented x 3 Laboratory Results: 11/10/18 10:40 11/10/18 10:40 11/10/18 Troponin I 0.00 x 2 mg 1.2 Diagnostic Imaging: Study Date: 11/10/2018 Echocardiogram Summary: 1. Left ventricle: The cavity size is normal. Wall thickness is normal. Systolic function is normal. The estimated ejection fraction is 55-60%. Wall motion is normal; there are no regional wall motion abnormalities. Abnormal septal motion, appears related to bundle branch block. 2. Right ventricle: The cavity size is normal. Systolic function is normal. 3. Left atrium: The atrium is normal in size. 4. Pulmonary arteries: Systolic pressure is within the normal range. 5. No significant valvular abnormalities noted. Exam Date: 10/30/18 CT LOW DOSE LUNG SCREEN F/U REPORT: Inferior thyroid lobes appear to be mildly enlarged. No mediastinal or hilar adenopathy is noted. Calcified lymph nodes are noted in the right hilum and in the subcarinal area unchanged from previous exam. Calcified granuloma in the right lower lobe is noted. The lung huizar demonstrate emphysematous changes. No pleural fluid is identified. The visualized abdominal structures are unremarkable. EKG Data: ekg today NSR, RBBB, leftward axis deviation ekg 03/16/2018 NSR: LAD, borderline ivcd Assessment/Plan Patient has a new RBBB that is asymptomatic. His electrolytes and troponins are normal. Echo was essentially unremarkable. It is likely degenerative in nature. He should continue to undergo primary prevention evaluation and treatment with his PCP.
--- NOTE | 2018-11-10 14:46 | ECHO ---
*[facility]* [place] [address] Fax #: [phone] Transthoracic Echocardiogram Patient: Ericka, Height: 72 in / Pankaj Colin 182.9 cm : 1950 Weight: 153.7 lb / Study Date: 11/10/2018 69.9 kg Age: 68 BP: 136 / 83 Gender: M BMI/BSA: 20.9 kg/m^2 HR: 81 bpm / 1.91 m^2 *Car Mechanic Helper: * Zeinab Gay [facility] *Referring Physician: Shania Allen *Reading Physician: * Atul Paul MD Indications: Abnormal EKG. History: S/P renal stenting today, new RBBB. Risk factors: Dyslipidemia. Conclusions Summary: 1. Left ventricle: The cavity size is normal. Wall thickness is normal. Systolic function is normal. The estimated ejection fraction is 55-60%. Wall motion is normal; there are no regional wall motion abnormalities. Abnormal septal motion, appears related to bundle branch block. 2. Right ventricle: The cavity size is normal. Systolic function is normal. 3. Left atrium: The atrium is normal in size. 4. Pulmonary arteries: Systolic pressure is within the normal range. 5. No significant valvular abnormalities noted. Study data: Transthoracic echocardiogram. Procedure: Transthoracic echocardiography was performed. Image quality was good. Complete 2D, spectral Doppler, and color flow Doppler. Location: Recovery room. Patient status: Observation. Findings Left ventricle: The cavity size is normal. Wall thickness is normal. Systolic function is normal. The estimated ejection fraction is 55-60%. Wall motion is normal; there are no regional wall motion abnormalities. Left ventricular diastolic function parameters are indeterminate. Right ventricle: Well visualized. The cavity size is normal. Systolic function is normal. Ventricular septum: Well visualized. Left atrium: Well visualized. The atrium is normal in size. Right atrium: Well visualized. The atrium is normal in size. Atrial septum: Well visualized. Mitral valve: Well visualized. The leaflets are normal thickness. No echocardiographic evidence for prolapse. There is no evidence of stenosis. There is trivial regurgitation. Aortic valve: Well visualized. The valve is trileaflet. The leaflets are normal thickness. There is no evidence of stenosis. There is no significant regurgitation. Tricuspid valve: Well visualized. The leaflets are normal thickness. There is no evidence of stenosis. There is trivial regurgitation. Pulmonic valve: Well visualized. The leaflets are normal thickness. There is no evidence of stenosis. There is no significant regurgitation. Aorta: The aorta is well visualized and normal size. Aortic arch: The aortic arch is appears normal. Pericardium: There is no pericardial effusion. No evidence of pleural fluid accumulation. Pulmonary arteries: Not well visualized. Systolic pressure is within the normal range. Systemic veins: Well visualized. Pulmonary veins: Well visualized. Measurements Left ventricle Value Ref Right atrium continued Value Ref MYLA, LAX 4.3 cm 4.2 - SI dim, ES, 4.5 cm 3.4 - 5.3 5.8 A4C ESD, LAX 3.1 cm 2.5 - SI dim/bsa, 2.3 cm/m^2 1.8 - 3.0 4.0 ES, A4C FS, LAX 27 % 25 - 43 PW, ED, LAX 1.0 cm 0.6 - Aortic valve Value Ref 1.0 Zuri diam, ED 2.4 cm --------- FS 26 % 25 - 43 Zuri diam/bsa, 1.3 cm/m^2 --------- Mid-wall FS 13 % -------- ED PW, ED 1.0 cm 0.6 - Peak v, S 0.86 m/sec --------- 1.0 VTI, S 18.3 cm --------- PW/ID, ED 0.24 -------- Mean grad, S 1.0 mm Hg --------- E', lat zuri, TDI (L) 7.9 cm/sec >=10.0 Peak grad, S 3.0 mm Hg - -------- E/e', lat zuri, TDI 9 -------- E', med zuri, TDI (L) 6.3 cm/sec >=7.0 Mitral valve Value R ef E/e', med zuri, TDI 11 -------- Peak E 0.68 m/sec ---- ----- E', avg, TDI 7.1 cm/sec -------- Peak A 0.67 m/sec ---- ----- E/e', avg, TDI 10 <=14 Decel time 176 ms - -------- Peak E/A ratio 1 --------- LVOT Value Ref Peak jose, S 0.72 m/sec -------- Pulmonic valve Value Ref Mean grad, S 1 mm Hg -------- Peak v, S 0.58 m/sec --------- Peak grad, S 1.0 mm Hg --------- Ventricular septum Value Ref IVS, ED 0.8 cm 0.6 - Tricuspid valve Value Ref 1.0 TR peak v 2.48 m/sec <=2.8 Peak RV-RA 25 mm Hg --------- Right ventricle Value Ref grad, S MYLA, LAX 2.8 cm -------- Max TR jose 2.48 m/sec --------- MYLA minor ax, A4C 3.0 cm 1.9 - mid 3.5 Aortic root Value Ref Root diam 3.5 cm <4.1 Left atrium Value Ref Root max diam, 3.5 cm <4.1 ML dim, A4C 4.4 cm -------- ED SI dim, A4C 5.5 cm -------- Vol/bsa, ES, 1-p 29 ml/m^2 12 - 37 Aortic arch Value Ref A4C Arch diam 2.6 cm --------- Vol/bsa, ES, A/L (H) 41 ml/m^2 16 - 34 Inferior vena cava Value Ref Right atrium Value Ref Diam 1.4 cm --------- SI dim, ES 4.5 cm 3.4 - 5.3 ML dim, ES, A4C 3.8 cm 2.6 - 4.4 Legend: (L) and (H) anna values outside specified reference range. Prepared and electronically signed by Atul Paul MD 11/10/2018 14:45
== END | disposition home or self-care (01) ==
LOC: OR 06:49
PROVIDERS: ATTEND Urology
DX: N20.0 Calculus of kidney (principal); N20.1 Calculus of ureter; I45.10 Unspecified right bundle-branch block; R94.31 Abnormal electrocardiogram [ECG] [EKG]; N13.30 Unspecified hydronephrosis; Z79.82 Long term (current) use of aspirin; Z87.891 Personal history of nicotine dependence; Z21 Asymptomatic human immunodeficiency virus [HIV] infection status; J44.9 Chronic obstructive pulmonary disease, unspecified; E78.5 Hyperlipidemia, unspecified
CPT/HCPCS: 36415; 74420; 76000; 80048; 82365; 83735; 84484; 85027; 88300; 93005; 93306; A9270-GY; C1876; J0696; J1580; J2704; J3010

== ENCOUNTER → 2018-12-11 10:22 | Day surgery (SDC) | payer MEDICARE, BC ==
--- NOTE | 2018-12-07 18:40 | HP ---
CC: Dr. Hudson; Dr. Paul, cardiology * ADMITTING HISTORY AND PHYSICAL: DATE OF ADMISSION: 12/11/18 ADMITTING DIAGNOSIS: Left renal calculus. PLANNED PROCEDURE: Shock wave lithotripsy of left renal calculus and left stent removal. SURGEON: Dr. Lorenzo. HISTORY OF PRESENT ILLNESS: Pankaj Branett is a 68-year-old gentleman with a history of recurrent renal and ureteral calculi. He had undergone laser lithotripsy for a large obstructing calculus in the left ureter and also underwent left stent insertion at that time. He is now being brought in for shock wave lithotripsy of the remaining left renal calculi and left stent removal. notable is the fact that after the last procedure, he developed a new onset right bundle-branch block for which he was evaluated by cardiology and also had a followup done including an echocardiogram and Dr. Paul felt that he could proceed with a lithotripsy and he is now being brought in for the same. PAST MEDICAL HISTORY: Significant for: 1. History of HIV positivity. 2. Depression. 3. Bilateral renal calculi. 4. High cholesterol. MEDICATIONS: 1. Remeron 15 mg daily. 2. Efavirenz 600 mg daily. 3. Descovy 200/25 one tablet daily. 4. Atorvastatin 20 mg daily. 5. Vitamins. ALLERGIES: No known drug allergies. FAMILY HISTORY: Negative for stones. SOCIAL HISTORY: He has 47-evro-eeph smoking history and quit in 2017. PHYSICAL EXAMINATION VITAL SIGNS: Blood pressure is 112/68; pulse 60 per minute, regular; temperature 97.6, oxygen saturation 97% on room air. LUNGS: Clear bilaterally. CARDIOVASCULAR EXAM: Regular rate and rhythm. S1, S2. ABDOMEN: Soft with mild left flank tenderness. IMPRESSION: A 68-year-old gentleman with left renal calculi and indwelling left stent. PLAN: Planned procedure is shock wave lithotripsy of the left renal calculi and left stent removal. [id number]/[facility] #: [id number] [facility]
[~2018-12-11 10:22] MED LIST changes: +Dexamethasone IV* 4 MG/ML 1 ML (4 MG) ONE; +Furosemide IV* 10 MG/ML 2 ML VIAL (20 MG) ONE; -Gentamicin ADULT (*) 160 MG in NS 0.9% 100 ML* 100 ML IVPB ONE; -Iohexol 180 (CONTRAST) 10 ML SDV IV ONE; -Lidocaine 2% PF * 5 ML VIAL ONE; +Midazolam* 1 MG/ML 2 ML VIAL (2 MG) ONE; -Naloxone* 0.4 MG/ML 1 ML VIAL IV PRN; +Ondansetron INJ* 2 MG/ML VIAL ONE; -Sodium Citrate/Citric Acid* 15 ML UDC ONE; -Sodium Citrate/Citric Acid* 15 ML UDC PO ONE; -fentaNYL* 50 MCG/ML 2 ML VIAL (100 MCG VIAL) IV PRN
[2018-12-11 17:03] VITALS: BP 139/94
--- NOTE | 2018-12-11 23:20 | OP ---
CC: Dr. Chapin Hudson * DATE OF OPERATION: 12/11/18 - SDS DATE OF : 54 SURGEON: Angel Lorenzo MD ANESTHESIOLOGIST: Dr. Carey. ANESTHESIA: General. PRE-OP DIAGNOSES: 1. Calculus, left kidney. 2. History of calculus, left ureter. 3. Left flank pain. POST-OP DIAGNOSES: 1. Calculus, left kidney. 2. History of calculus, left ureter. 3. Left flank pain. OPERATIVE PROCEDURE: 1. Shockwave lithotripsy of left renal calculus. 2. Cystoscopy and left stent removal. COMPLICATIONS: None. POSTOPERATIVE CONDITION: Stable. INDICATIONS: Pankaj Barnett is a 68-year-old gentleman who had previously undergone treatment for a large obstructing calculus in the left ureter. He is now being brought in for shockwave lithotripsy of left renal calculus and left stent removal. DESCRIPTION OF PROCEDURE: After induction of general anesthesia, the patient was placed on the lithotripsy table in supine position. The calculus in the lower pole of the left kidney was localized and shockwave lithotripsy was commenced at a rate of 90 shocks per minute. After the initial 300 shocks, there was a pause in lithotripsy for several minutes in an effort to minimize any potential trauma to the kidney. Lithotripsy was then resumed and a total of 1400 shocks were delivered. Good fragmentation was observed. Next, the patient was placed in dorsal lithotomy position and cystoscopy was performed. The stent was seen exiting from the left orifice and was removed intact without difficulty. The bladder was emptied. The patient tolerated the procedure satisfactorily and was transferred back to the recovery area in stable condition. [id number]/[facility] #: [id number] [facility]ENTERVamshi
== END | disposition home or self-care (01) ==
LOC: OR 10:22
PROVIDERS: ATTEND Urology
DX: N20.0 Calculus of kidney (principal); Z21 Asymptomatic human immunodeficiency virus [HIV] infection status; E78.00 Pure hypercholesterolemia, unspecified; F32.9 Major depressive disorder, single episode, unspecified; Z87.891 Personal history of nicotine dependence; Z87.442 Personal history of urinary calculi
CPT/HCPCS: 74018; J0696; J1100; J1940; J2250; J2405; J2704; J3010